=== PATIENT | male | born 1965 | race Caucasian/White ===

== ENCOUNTER 2020-01-01 09:10 | Outpatient (REF) | payer BC, SELFPAY ==
[2020-01-01 10:56] LABS: Estimated Average Glucose 134 mg/dL; Hemoglobin A1c % 6.3 %
[2020-01-01 11:11] LABS: Alanine Aminotransferase 20 U/L (0-40); Albumin Level 3.9 g/dL (3.5-5.0); Alkaline Phosphatase 124 U/L (39-117); Aspartate Amino Transferase 15 U/L (5-37); Bilirubin Direct 0.2 mg/dL (0.0-0.5); Bilirubin Total 0.3 mg/dL (0.0-1.0); Cholesterol 143 mg/dL; HDL Cholesterol 39 mg/dL; LDL Cholesterol Calculated 76 mg/dl; Total Protein 6.9 g/dL (6.5-8.0); Triglycerides 140 mg/dL
[2020-01-03 09:33] LABS: Vitamin B12 606 pg/mL (200-900)
== END 2020-01-01 09:11 | disposition home or self-care (01) ==
LOC: HO.LAB 09:10
PROVIDERS: PCP Internal Medicine; Visit Provider Internal Medicine
DX: E11.65 Type 2 diabetes mellitus with hyperglycemia (principal); E78.00 Pure hypercholesterolemia, unspecified; I10 Essential (primary) hypertension; E66.9 Obesity, unspecified
CPT/HCPCS: 36415; 80061; 80076; 82607; 82746; 83036

== ENCOUNTER 2020-06-24 08:18 | Outpatient (REF) | payer BC, SELFPAY ==
[2020-06-24 09:09] LABS: MANUAL DIFF FLAG NO
[2020-06-24 09:28] LABS: Basophils Absolute Auto 0.1 X10*3/uL (0.0-0.2); Basophils Percent Auto 0.8 % (0-2); Eosinophils Absolute Auto 0.3 X10*3/uL (0.0-0.4); Eosinophils Percent Auto 3.9 % (0-4); Hemoglobin 13.7 g/dl (14.0-18.0); Imm Gran Abs Auto 0.03 X10*3/uL (0.00-0.03); Imm Gran Pct Auto 0.4 % (0.0-0.4); Lymphocytes Absolute Auto 1.6 X10*3/uL (1.2-4.9); Lymphocytes Percent Auto 21.8 % (20-40); Mean Corpuscular HGB Conc 32.6 g/dl (31.0-36.0); Mean Corpuscular Hemoglobin 27.1 pg (27.0-33.0); Mean Corpuscular Volume 83.2 fL (80-98); Monocytes Absolute Auto 0.5 X10*3/uL (0.1-1.2); Neutrophils Percent Auto 67.1 % (45-73); Platelet Count 324 X10*3/uL (160-400); Red Blood Count 5.05 X10*6/uL (4.60-5.80); Red Cell Distribution Width 13.3 % (11.0-16.0); White Blood Count 7.5 X10*3/uL (4.8-10.8)
[2020-06-24 09:54] LABS: Alanine Aminotransferase 25 U/L (0-40); Albumin Level 3.8 g/dL (3.5-5.0); Alkaline Phosphatase 135 U/L (39-117); Anion Gap 13 (12-20); Aspartate Amino Transferase 14 U/L (5-37); Bilirubin Total 0.5 mg/dL (0.0-1.0); Blood Urea Nitrogen 20 mg/dL (9-16); Calcium 8.8 mg/dL (8.4-10.2); Carbon Dioxide 27 mmol/L (22-29); Chloride 104 mmol/L (96-108); Cholesterol 155 mg/dL; Estimated Average Glucose 140 mg/dL; Estimated Glomerular Filt Rate > 60; Glucose Random 122 mg/dL (60-115); HDL Cholesterol 39 mg/dL; Hemoglobin A1c % 6.5 %; LDL Cholesterol Calculated 96 mg/dl; Potassium 4.9 mmol/L (3.3-5.1); Sodium 139 mmol/L (135-145); Total Protein 6.7 g/dL (6.5-8.0); Triglycerides 104 mg/dL
[2020-06-24 10:15] LABS: Creatinine Urine 128.34 mg/dL; Microalbum/Creatinine Ratio Ur 991.1 ug/mg cr
[2020-06-24 10:44] LABS: Free T4 (Free Thyroxine) 0.82 ng/dL (0.71-1.85); Prostate Specific Antigen Scr 9.64 ng/mL (<0.05-4.0); Thyroid Stimulating Hormone 0.87 uIU/mL (0.32-4.0)
[2020-06-26 08:40] LABS: Folate 6.9 ng/mL (> or = 4.0); Vitamin B12 643 pg/mL (200-900)
== END 2020-06-24 08:19 | disposition home or self-care (01) ==
LOC: HO.LAB 08:18
PROVIDERS: PCP Internal Medicine; Visit Provider Internal Medicine
DX: R97.20 Elevated prostate specific antigen [PSA] (principal); E11.65 Type 2 diabetes mellitus with hyperglycemia; E78.00 Pure hypercholesterolemia, unspecified
CPT/HCPCS: 36415; 80053; 80061; 82043; 82607; 82746; 83036; 84153; 84439; 84443; 85025

== ENCOUNTER 2020-11-25 22:27 | Emergency (ER) | payer BC, SELFPAY ==
--- NOTE | ~2020-11-25 | CT_ITS ---
EXAMINATION: CT ABDOMEN AND PELVIS WITHOUT CONTRAST CLINICAL INFORMATION: Left flank pain COMPARISON: 09/23/2012 TECHNIQUE: Multidetector volumetric imaging was performed from the superior aspect of the liver through the pubic symphysis. Sagittal and coronal reformatted images were obtained on the technologist's workstation. This CT examination was performed using dose optimization techniques as appropriate, variously including the following: *Automated exposure control *Adjustment of mA and/or kV according to patient size (this includes techniques or standardized protocols for targeted exams where dose is matched to indication/reason for exam; i.e. extremities or head) *Use of iterative reconstruction technique DLP: 1038 mGy-cm FINDINGS: LUNG BASES: The visualized lung bases are unremarkable. LIVER, GALLBLADDER, AND BILIARY TREE: The liver is normal in size, shape, and attenuation. No focal hepatic lesion or biliary ductal dilatation is present. Cholelithiasis is noted. PANCREAS: Unremarkable. SPLEEN: Unremarkable. ADRENAL GLANDS: Unremarkable. KIDNEYS AND URETERS: There are several scattered bilateral renal calculi, greater number in the left kidney than the right; these measure up to approximately 8 mm in diameter. No hydronephrosis or obstructing calculus bilaterally. BLADDER: Unremarkable. GASTROINTESTINAL TRACT: There is subtle stranding anterior to the mid descending colon most suggestive of epiploic appendagitis. There is diverticulosis of the descending and sigmoid colon. No significant bowel wall thickening is seen. No evidence of bowel obstruction. The appendix is unremarkable. No free fluid or free air is seen. ABDOMINAL WALL: Bilateral fat-containing inguinal hernias are noted. LYMPH NODES: Normal. VASCULAR: There is minimal scattered atherosclerotic calcification. PELVIC VISCERA: The prostate gland is enlarged, measuring 7.8 cm in transverse diameter. OSSEOUS STRUCTURES: Scattered degenerative changes including endplate osteophytes and facet arthropathy, as well as degenerative disc disease at L5-S1. CT/CT abdomen pelvis wo con IMPRESSION: 1. Mild stranding anterior to the mid descending colon, most suggestive of epiploic appendagitis. 2. Colonic diverticulosis without convincing diverticulitis. 3. Bilateral renal calculi without hydronephrosis. 4. Cholelithiasis. 5. Enlarged prostate gland. 6. Bilateral fat-containing inguinal hernias.
[2020-11-25 22:54] VITALS: BP 145/72; PULSE 93; RESP 16; TEMP 37.1; O2SAT 96; BMI 40.3
[2020-11-25 23:31] LABS: MANUAL DIFF FLAG NO
[2020-11-25 23:32] LABS: Basophils Percent Auto 0.3 % (0-2); Eosinophils Absolute Auto 0.2 X10*3/uL (0.0-0.4); Eosinophils Percent Auto 2.7 % (0-4); Hemoglobin 13.2 g/dl (14.0-18.0); Imm Gran Abs Auto 0.02 X10*3/uL (0.00-0.03); Imm Gran Pct Auto 0.2 % (0.0-0.4); Lymphocytes Absolute Auto 1.7 X10*3/uL (1.2-4.9); Lymphocytes Percent Auto 18.3 % (20-40); Mean Corpuscular Hemoglobin 27.2 pg (27.0-33.0); Mean Corpuscular Volume 82.5 fL (80-98); Mean Platelet Volume 10.5 fL (9.4-12.4); Monocytes Absolute Auto 0.7 X10*3/uL (0.1-1.2); Monocytes Percent Auto 7.3 % (2-11); Neutrophils Absolute Auto 6.4 X10*3/uL (2.0-8.3); Neutrophils Percent Auto 71.2 % (45-73); Platelet Count 291 X10*3/uL (160-400); Red Blood Count 4.85 X10*6/uL (4.60-5.80); Red Cell Distribution Width 13.2 % (11.0-16.0)
[2020-11-25 23:52] LABS: Glucose Urine UA NEG (NEG); Leukocyte Esterase Urine NEG (NEG); Nitrite Urine NEG (NEG); PH 7.5 (5.0-8.0); UACC Culture Trigger NO; Urine Blood NEG (NEG); Urine Ketones NEG (NEG); Urine Protein 2+ MG/DL (NEG-TRACE)
[2020-11-25 23:53] LABS: Appearance Urine CLEAR; Color Urine YELLOW
[2020-11-25 23:55] LABS: Alanine Aminotransferase 21 U/L (0-40); Albumin Level 3.9 g/dL (3.5-5.0); Alkaline Phosphatase 119 U/L (39-117); Anion Gap 11 (12-20); Aspartate Amino Transferase 13 U/L (5-37); Bilirubin Total 0.3 mg/dL (0.0-1.0); Blood Urea Nitrogen 18 mg/dL (9-16); Calcium 9.2 mg/dL (8.4-10.2); Carbon Dioxide 27 mmol/L (22-29); Chloride 107 mmol/L (96-108); Creatinine Clr Calc Pharmacy 120.8; Estimated Glomerular Filt Rate > 60; Glucose Random 120 mg/dL (60-115); Potassium 3.9 mmol/L (3.3-5.1); Sodium 141 mmol/L (135-145); Total Protein 6.7 g/dL (6.5-8.0)
[2020-11-26 00:10] LABS: Mucus Urine 1+ /LPF; RBC Urine 0-2 /HPF (0); Squamous Epithelial Cell Urine TRACE /LPF
--- NOTE | 2020-11-26 00:32 | ED.ABDPAIN ---
HPI - Abdominal Pain General Chief Complaint: Abdominal Pain Stated Complaint: Abd Pain Time Seen by Provider: 11/26/20 00:32 Source: patient Mode of arrival: ambulatory History of Present Illness HPI narrative: 55-year-old male with history kidney stones presents with intermittent pain since Friday but this evening states that it started becoming much worse and is located as the left flank without associated nausea, vomiting, fevers, chills and patient denies any difficulty with urination. Related Data Home Medications Medication Instructions Recorded Confirmed cyanocobalamin (vitamin B-12) 1,000 mcg PO DAILY 03/30/20 06/27/20 1,000 mcg capsule Previous Rx's Medication Instructions Recorded atorvastatin 40 mg tablet 40 mg PO DAILY #90 tab 04/19/20 lisinopril 40 mg tablet 40 mg PO DAILY #90 tab 04/19/20 aspirin 81 mg tablet,delayed 81 mg PO DAILY 90 Days #90 tab 08/07/20 release (Adult Aspirin Regimen) amlodipine 2.5 mg tablet 2.5 mg PO DAILY #90 tab 11/13/20 Allergies Allergy/AdvReac Type Severity Reaction Status Date / Time codeine Allergy Unknown nausea and Verified 11/25/20 22:53 vomitting Review of Systems Review of Systems Pertinent positives and negatives as stated in HPI 10 point review of systems is otherwise negative. Physical Exam Vital Signs: Vital Signs: Last Vital Signs Temp 98.7 F 11/25/20 22:54 Pulse 93 11/25/20 22:54 Resp 16 11/25/20 22:54 BP 145/72 H 11/25/20 22:54 Pulse Ox 96 11/25/20 22:54 Body Mass Index 40.3 VITAL SIGNS: Reviewed. GENERAL: Well developed, well nourished, in no acute distress. HEAD: Normocephalic/atraumatic EYES: PERRLA, EOMI LUNGS: Normal breath sounds. No adventitious sounds or accessory muscle use. SpO2<96> CARDIOVASCULAR: Regular rate and rhythm without noted murmurs ABDOMEN: Obese, Soft, tenderness noted at left flank without rebound but voluntary guarding, non-distended with bowel sounds. SKIN: Inspection of the skin reveals no rashes NEUROLOGIC: Alert and oriented x 4. Strength and sensation to light touch were grossly intact x 4. Course Course Course Narrative: This is a 55-year-old male with history and clinical presentation most consistent with renal colic and low suspicion for diverticulitis. Patient was provided with combination analgesics for his discomfort. Review of all investigations with findings of epiploic appendagitis. Although patient does have bilateral renal calculi, there is no evidence of destruction. On re-evaluation patient was informed of all findings and reports improvement of the pain with the medication and will be discharged home in stable condition with recommended treatment for the epiploic appendagitis as well as instructions to follow-up with urology. MDM - Abdominal Pain Lab Data Result diagrams: 11/25/20 23:26 11/25/20 23:26 Labs: Lab Results 11/25/20 11/25/20 11/25/20 Range/Units 23:21 23:26 23:26 WBC 9.0 (4.8-10.8) X10*3/uL RBC 4.85 (4.60-5.80) X10*6/uL Hgb 13.2 L (14.0-18.0) g/dl Hct 40.0 L (42-52) % MCV 82.5 (80-98) fL MCH 27.2 (27.0-33.0) pg MCHC 33.0 (31.0-36.0) g/dl RDW 13.2 (11.0-16.0) % Plt Count 291 (160-400) X10*3/uL MPV 10.5 (9.4-12.4) fL Immature Gran % (Auto) 0.2 (0.0-0.4) % Neut % (Auto) 71.2 (45-73) % Lymph % (Auto) 18.3 L (20-40) % [place] % (Auto) 7.3 (2-11) % Eos % (Auto) 2.7 (0-4) % Baso % (Auto) 0.3 (0-2) % Lymph # (Auto) 1.7 (1.2-4.9) X10*3/uL [place] # (Auto) 0.7 (0.1-1.2) X10*3/uL Eos # (Auto) 0.2 (0.0-0.4) X10*3/uL Baso # (Auto) 0.0 (0.0-0.2) X10*3/uL Abs Immat Gran (auto) 0.02 (0.00-0.03) X10*3/uL Absolute Neuts (auto) 6.4 (2.0-8.3) X10*3/uL Absolute Nucleated RBC 0.000 (0.0-0.012) X10*3/uL Nucleated RBC % (auto) 0.0 (0.0-0.2) /100WBC Sodium 141 (135-145) mmol/L Potassium 3.9 D (3.3-5.1) mmol/L Chloride 107 (96-108) mmol/L Carbon Dioxide 27 (22-29) mmol/L Anion Gap 11 L (12-20) BUN 18 H (9-16) mg/dL Creatinine 0.85 (0.5-1.4) mg/dL Estim Creat Clear Calc 120.8 Estimated GFR > 60 Random Glucose 120 H (60-115) mg/dL Calcium 9.2 (8.4-10.2) mg/dL Total Bilirubin 0.3 (0.0-1.0) mg/dL AST 13 (5-37) U/L ALT 21 (0-40) U/L Alkaline Phosphatase 119 H (39-117) U/L Total Protein 6.7 (6.5-8.0) g/dL Albumin 3.9 (3.5-5.0) g/dL Urine Color YELLOW Urine Appearance CLEAR Urine pH 7.5 (5.0-8.0) Ur Specific [place] 1.020 (1.005-1.025) Urine Protein 2+ H (NEG-TRACE) MG/DL Urine Glucose (UA) NEG (NEG) MG/DL Urine Ketones NEG (NEG) MG/DL Urine Blood NEG (NEG) Urine Nitrite NEG (NEG) Ur Leukocyte Esterase NEG (NEG) Urine RBC 0-2 (0) /HPF Urine WBC 1-4 (0-4) /HPF Ur Squamous Epith Cells TRACE /LPF Urine Bacteria NONE /LPF Urine Mucus 1+ /LPF Discharge Plan Discharge Clinical Impression: Epiploic appendagitis, Renal calculi Patient Disposition: Home, Self-Care Instructions: Flank Pain (ED), Kidney Stones (ED) Additional Instructions: 1. Resume all home medications as prescribed. 2. Tylenol 1000 mg, orally, every 6 hours as needed for pain control. Do not exceed 4000 mg within 24 hours. 3. Ibuprofen 400 mg, orally, every 6 hours as needed for pain control. Recommend using this in combination with the Tylenol for improved symptom relief. Do not use the ibuprofen for longer than 1 week. 4. Follow-up with your primary care provider for re-evaluation after your diagnosis of epiploic appendagitis. 5. Follow-up with urology for re-evaluation of your kidney stones. Drink plenty of water and avoid carbonated/caffeinated beverages. Return to the ER for acute worsening of symptoms. Prescriptions: No Action atorvastatin 40 mg tablet 40 mg PO DAILY Qty: 90 RF: 2 lisinopril 40 mg tablet 40 mg PO DAILY Qty: 90 RF: 2 aspirin [Adult Aspirin Regimen] 81 mg tablet,delayed release (DR/EC) 81 mg PO DAILY 90 Days Qty: 90 RF: 2 amlodipine 2.5 mg tablet 2.5 mg PO DAILY Qty: 90 RF: 3 cyanocobalamin (vitamin B-12) 1,000 mcg capsule 1,000 mcg PO DAILY RF: 0 Referrals: Flavio Massey MD [Primary Care Provider] - 2 days (Patient diagnosed with epiploic appendagitis and sent home with combination analgesics. Appreciate re-evaluation.) Dillon Rae MD [Physician] - 2 days PMF Past Medical History Source: nursing notes reviewed Medical History BPH (benign prostatic hyperplasia) Chronic kidney disease (CKD) stage G1/A1, glomerular filtration rate (GFR) equal to or greater than 90 mL/min/1.73 square meter and albuminuria creatinine ratio less than 30 mg/g Closed fracture of right distal fibula Diabetic nephropathy GERD (gastroesophageal reflux disease) Gout History of renal calculi Hypercholesterolemia Hypertension Obesity (BMI 30-39.9) Type 2 diabetes mellitus with hyperglycemia Vitamin D deficiency Surgical History No pertinent past surgical history Family History Family History Father Bladder cancer Mother Breast cancer Maternal Uncle Myocardial infarction Brother Alzheimers disease Social History [facility] Alcohol intake: current Alcohol intake frequency: holidays/special occasions only Patient Tobacco Use Status: Never used Tobacco e-Cigarette/Vaping Use: Never Used Second Hand Smoke Exposure: No Advance Directives: No Advance Directives Information Provided: Yes service: No Current occupational status: employed Current occupational exposures/hazards: No
[2020-11-26] MEDS: Ketorolac Tromethamine 15 MG/ML VIAL IVPUSH (00:50)
[2020-11-26] MEDS: Acetaminophen 325 MG TABLET 975 MG PO (00:50)
[2020-11-26] MEDS: 0.9 % Sodium Chloride 1,000 ML 999 ML IV (00:51)
== END 2020-11-26 01:47 | disposition home or self-care (01) ==
PROVIDERS: Emergency Provider Student in an Organized Health Care Education/Training Program; PCP Internal Medicine
DX: K63.89 Other specified diseases of intestine (principal); N20.0 Calculus of kidney; K80.20 Calculus of gallbladder without cholecystitis without obstruction; K40.90 Unilateral inguinal hernia, without obstruction or gangrene, not specified as recurrent; N40.0 Benign prostatic hyperplasia without lower urinary tract symptoms; R10.9 Unspecified abdominal pain; E11.9 Type 2 diabetes mellitus without complications; I10 Essential (primary) hypertension; Z79.899 Other long term (current) drug therapy
CPT/HCPCS: 36415; 74176; 80053; 81001; 85025; 96361; 96374; 99284; J1885

== ENCOUNTER 2020-12-21 07:07 | Outpatient (REF) | payer BC, SELFPAY | END 2020-12-21 07:08 | disposition home or self-care (01) | LOC: HO.HMGCLDS 07:07 | PROVIDERS: PCP Internal Medicine; Visit Provider Internal Medicine | DX: Z20.822 Contact with and (suspected) exposure to COVID-19 (principal) | CPT/HCPCS: C9803; U0003; U0005 ==

== ENCOUNTER 2021-05-10 10:30 | Outpatient (REF) | payer BC, SELFPAY ==
[2021-05-10 10:47] LABS: MANUAL DIFF FLAG NO
[2021-05-10 11:06] LABS: Basophils Percent Auto 0.5 % (0-2); Eosinophils Absolute Auto 0.2 X10*3/uL (0.0-0.4); Eosinophils Percent Auto 1.9 % (0-4); Hematocrit 42.9 % (42.0-52.0); Imm Gran Abs Auto 0.03 X10*3/uL (0.00-0.03); Imm Gran Pct Auto 0.4 % (0.0-0.4); Lymphocytes Absolute Auto 1.6 X10*3/uL (1.2-4.9); Lymphocytes Percent Auto 19.2 % (20-40); Mean Corpuscular HGB Conc 32.6 g/dl (31.0-36.0); Mean Corpuscular Hemoglobin 26.6 pg (27.0-33.0); Mean Corpuscular Volume 81.6 fL (80.0-98.0); Mean Platelet Volume 10.6 fL (9.4-12.4); Monocytes Absolute Auto 0.5 X10*3/uL (0.1-1.2); Monocytes Percent Auto 5.9 % (2-11); Neutrophils Absolute Auto 5.8 x10*3/uL (2.0-8.3); Neutrophils Percent Auto 72.1 % (45-73); Platelet Count 318 X10*3/uL (160-400); Red Blood Count 5.26 X10*6/uL (4.60-5.80); Red Cell Distribution Width 13.6 % (11.0-16.0); White Blood Count 8.1 X10*3/uL (4.8-10.8)
[2021-05-10 11:21] LABS: Estimated Average Glucose 151 mg/dL; Hemoglobin A1c % 6.9 %
[2021-05-10 11:31] LABS: Alanine Aminotransferase 24 U/L (0-40); Alkaline Phosphatase 116 U/L (39-117); Anion Gap 13 (12-20); Aspartate Amino Transferase 14 U/L (5-37); Bilirubin Total 0.3 mg/dL (0.0-1.0); Blood Urea Nitrogen 17 mg/dL (9-16); Calcium 9.8 mg/dL (8.4-10.2); Carbon Dioxide 27 mmol/L (22-29); Chloride 102 mmol/L (96-108); Estimated Glomerular Filt Rate > 60; Glucose Random 102 mg/dL (60-115); Magnesium 1.9 mg/dL (1.6-2.6); Potassium 4.5 mmol/L (3.3-5.1); Sodium 137 mmol/L (135-145); Total Protein 7.4 g/dL (6.5-8.0)
== END 2021-05-10 10:31 | disposition home or self-care (01) ==
LOC: HO.LAB 10:30
PROVIDERS: PCP Internal Medicine; Visit Provider Nurse Practitioner Acute Care
DX: M79.10 Myalgia, unspecified site (principal)
CPT/HCPCS: 36415; 80053; 83036; 83735; 85025

== ENCOUNTER 2021-07-04 18:49 | Emergency (ER) | payer BC, SELFPAY ==
--- NOTE | ~2021-07-04 | CT_ITS ---
EXAMINATION: CT ABDOMEN AND PELVIS WITHOUT CONTRAST CLINICAL INFORMATION: Right flank pain COMPARISON: 11/26/2020 TECHNIQUE: Multidetector volumetric imaging was performed from the superior aspect of the liver through the pubic symphysis. Sagittal and coronal reformatted images were obtained on the technologist's workstation. This CT examination was performed using dose optimization techniques as appropriate, variously including the following: *Automated exposure control *Adjustment of mA and/or kV according to patient size (this includes techniques or standardized protocols for targeted exams where dose is matched to indication/reason for exam; i.e. extremities or head) *Use of iterative reconstruction technique DLP: 877 mGy-cm FINDINGS: LUNG BASES: The visualized lung bases are unremarkable. LIVER, GALLBLADDER, AND BILIARY TREE: The liver is normal in size, shape, and attenuation. No focal hepatic lesion or biliary ductal dilatation is present. Gallstones. No gallbladder wall thickening or biliary ductal dilatation. PANCREAS: Unremarkable. SPLEEN: Unremarkable. ADRENAL GLANDS: 1.2 x 1.7 cm left adrenal nodule has density -3 Hounsfield units consistent with a lipid rich adrenal adenoma. Normal right adrenal gland. KIDNEYS AND URETERS: Multiple bilateral nonobstructing renal calculi. The largest on the left measures 1 cm in the upper pole. 6 mm calculus in the right mid kidney. No hydronephrosis or hydroureter. BLADDER: Unremarkable. GASTROINTESTINAL TRACT: Stomach and small bowel are nondilated normal appendix. Scattered colonic diverticulosis. No evidence of colitis or diverticulitis. ABDOMINAL WALL: Fat-containing bilateral inguinal hernias. LYMPH NODES: No lymphadenopathy. VASCULAR: Normal caliber abdominal aorta. PELVIC VISCERA: Prostatomegaly, 6.7 x 7.5 cm. Symmetric seminal vesicles. OSSEOUS STRUCTURES: Multilevel degenerative changes, greatest at L5-S1. No acute or suspicious osseous abnormality. CT/CT abdomen pelvis wo con IMPRESSION: No acute CT findings. No evidence of colitis or diverticulitis. Nonobstructing bilateral renal calculi.
[2021-07-04 18:51] VITALS: BP 161/80; PULSE 102; RESP 18; TEMP 35.9; O2SAT 97; BMI 40.6
[2021-07-04 19:05] LABS: MANUAL DIFF FLAG NO
[2021-07-04 19:07] LABS: Basophils Percent Auto 0.5 % (0-2); Eosinophils Absolute Auto 0.2 X10*3/uL (0.0-0.4); Hematocrit 41.7 % (42.0-52.0); Hemoglobin 13.6 g/dl (14.0-18.0); Imm Gran Abs Auto 0.02 X10*3/uL (0.00-0.03); Imm Gran Pct Auto 0.2 % (0.0-0.4); Lymphocytes Absolute Auto 1.9 X10*3/uL (1.2-4.9); Lymphocytes Percent Auto 22.8 % (20-40); Mean Corpuscular HGB Conc 32.6 g/dl (31.0-36.0); Mean Corpuscular Hemoglobin 26.9 pg (27.0-33.0); Mean Corpuscular Volume 82.6 fL (80.0-98.0); Mean Platelet Volume 10.4 fL (9.4-12.4); Monocytes Absolute Auto 0.5 X10*3/uL (0.1-1.2); Monocytes Percent Auto 5.9 % (2-11); Neutrophils Absolute Auto 5.7 x10*3/uL (2.0-8.3); Neutrophils Percent Auto 68.6 % (45-73); Platelet Count 332 X10*3/uL (160-400); Red Blood Count 5.05 X10*6/uL (4.60-5.80); Red Cell Distribution Width 13.5 % (11.0-16.0); White Blood Count 8.4 X10*3/uL (4.8-10.8)
[2021-07-04 19:31] LABS: Alanine Aminotransferase 24 U/L (0-40); Albumin Level 4.1 g/dL (3.5-5.0); Alkaline Phosphatase 126 U/L (39-117); Anion Gap 12 (12-20); Aspartate Amino Transferase 14 U/L (5-37); Bilirubin Total 0.4 mg/dL (0.0-1.0); Blood Urea Nitrogen 16 mg/dL (9-16); Calcium 9.9 mg/dL (8.4-10.2); Carbon Dioxide 26 mmol/L (22-29); Chloride 104 mmol/L (96-108); Creatinine Clr Calc Pharmacy 127.3; Estimated Glomerular Filt Rate > 60; Glucose Random 154 mg/dL (60-115); Potassium 4.1 mmol/L (3.3-5.1); Sodium 138 mmol/L (135-145); Total Protein 7.3 g/dL (6.5-8.0)
--- NOTE | 2021-07-04 22:03 | ED.ABDPAIN ---
HPI - Abdominal Pain General Chief Complaint: Abdominal Pain Stated Complaint: kidney stones Time Seen by Provider: 07/04/21 22:03 Source: patient Mode of arrival: ambulatory Limitations: no limitations History of Present Illness HPI narrative: This is a 55-year-old male past medical history significant for renal stones presenting to the emergency department with severe right-sided flank pain worsening over the past 3 days. Patient tells me that he is scheduled for lithotripsy on July 16 of this year for a large kidney stones however he tells me he has never experienced pain this severe. He describes the pain as stabbing intermittent pain 10/10 nonradiating localized to the right flank. He tells me he does not have associated nausea, vomiting, chest pain, fevers, chills, abdominal pain, changes in urination. He is followed by [facility]. MD elicited complaint: flank pain Pertinent past history: kidney stones Onset (ago): day(s) (3) Pain Consistency: intermittent Location: none Severity: moderate Quality: stabbing Radiation: none Migration to: no migration Exacerbating factors: nothing Relieving factors: nothing Associated symptoms: denies other symptoms and chills Related Data Previous Rx's Medication Instructions Recorded atorvastatin 40 mg tablet 40 mg PO DAILY #90 tab 03/26/21 cyanocobalamin (vitamin B-12) 1,000 mcg PO DAILY #90 cap 03/26/21 1,000 mcg capsule lisinopril 40 mg tablet 40 mg PO DAILY #90 tab 03/30/21 magnesium oxide 400 mg PO DAILY #30 tab 05/10/21 aspirin 81 mg tablet,delayed 81 mg PO DAILY 90 Days #90 tab 05/25/21 release (Adult Aspirin Regimen) amlodipine 10 mg tablet 10 mg PO DAILY 30 Days #30 tab 06/01/21 Allergies Allergy/AdvReac Type Severity Reaction Status Date / Time codeine Allergy Unknown nausea and Verified 07/04/21 18:53 vomitting Review of Systems Review of Systems Constitutional : No Weight loss, No Fever, No Chills, No Fatigue, No Malaise ENT/Mouth : No sore throat, No Rhinorrhea Eyes: No Eye Pain, No Swelling, No Redness Cardiovascular : No Chest Pain, No SOB, No Dyspnea on Exertion, No Orthopnea, No Edema, No Palpitations Respiratory : No Cough, No Sputum, No Wheezing Gastrointestinal : No Nausea, No Vomiting, No Diarrhea, No Constipation, No abdominal Pain, No Hematochezia, No Melena Genitourinary : No Dysuria, No Urinary Frequency, No Hematuria, Musculoskeletal : No joint pain, No Myalgias, No Joint Swelling, + flank pain Skin : No Skin Lesions, No rash Neuro : No Weakness, No Numbness, No Dizziness, No Headache Psych : No Anxiety/Panic, No Depression All other systems reviewed and are negative [facility] Past Medical History Attestation statement: The following information was validated with the patient. Source: old records reviewed Medical History BPH (benign prostatic hyperplasia) Chronic kidney disease (CKD) stage G1/A1, glomerular filtration rate (GFR) equal to or greater than 90 mL/min/1.73 square meter and albuminuria creatinine ratio less than 30 mg/g Closed fracture of right distal fibula Diabetic nephropathy GERD (gastroesophageal reflux disease) Gout History of renal calculi Hypercholesterolemia Hypertension Obesity (BMI 30-39.9) Type 2 diabetes mellitus with hyperglycemia Vitamin D deficiency Surgical History No pertinent past surgical history Family History Family History Father Bladder cancer Mother Breast cancer Maternal Uncle Myocardial infarction Brother Alzheimers disease Social History [facility] Alcohol intake: current Alcohol intake frequency: holidays/special occasions only Patient Tobacco Use Status: Never used Tobacco e-Cigarette/Vaping Use: Never Used Second Hand Smoke Exposure: No Use of substances other than those prescribed or required for medical reasons: No Advance Directives: No Advance Directives Information Provided: No service: No Current occupational status: employed Current occupational exposures/hazards: No Physical Exam ED Vital Signs: Vital Signs - 24 hr 07/04/21 18:51 07/04/21 22:19 07/04/21 23:02 Temperature 96.7 F L 98.8 F Pulse Rate 102 H 85 Respiratory Rate 18 16 20 Blood Pressure 161/80 H 162/80 H Pulse Oximetry 97 97 07/05/21 00:05 Temperature Pulse Rate 75 Respiratory Rate 16 Blood Pressure 137/71 Pulse Oximetry 96 BMI result Body Mass Index 40.6 VSS Appearance: Alert.? Oriented X3.? No acute distress.? Head: Normocephalic, atraumatic, no step-offs or deformities Eyes: Pupils equal, round and reactive to light.? ENT: Pharynx normal.? Neck: Normal inspection.? Neck supple.? CVS: Normal heart rate and rhythm.? Pulses normal.? Respiratory: No respiratory distress.? Breath sounds normal.? Abdomen: Soft and nontender.? Skin: Skin warm and dry.? Normal skin color.? Normal skin turgor.? Extremities: No lower extremity edema.? No calf ttp. 5/5 strength to bilateral upper and lower extremities Back: No midline tenderness, no C-spine tenderness, full range of motion, no CVA tenderness bilaterally Neuro: Oriented X 3.? No motor deficit.? No sensory deficit. CN 2-12 intact Course Reevaluation(s) Reevaluation #1: CBC appears to be at patient's baseline. No acute electrolyte abnormalities. Magnesium normal. Urine clean, 2+ protein. No red blood cells. COVID negative. CT of the abdomen and pelvis with no acute CT findings. No evidence of colitis or diverticulitis. There are bilateral non obstructing renal calculi. History and physical examination not consistent with UTI or pyelonephritis. Patient tells me there is significant improvement after morphine. He tells me that he has scheduled lithotripsy out of [facility] on the 18th of this month. I advised patient to follow-up with his urologist return with new or worsening symptoms. Time: 00:08 MDM - Abdominal Pain MDM Narrative Medical decision making narrative: 2215 55 yo m pmhx renal stones presenting w/ severe right sided flank pain X3 days PE benign Plan- urine, labs, ct abdomen and pelvis. Medical Records Attestation: I reviewed the patient's medical records. Lab Data Attestation: I reviewed the patient's lab results. Result diagrams: 07/04/21 18:57 07/04/21 18:57 Labs: Lab Results 07/04/21 07/04/21 07/04/21 Range/Units 18:57 18:57 22:16 WBC 8.4 (4.8-10.8) X10*3/uL RBC 5.05 (4.60-5.80) X10*6/uL Hgb 13.6 L (14.0-18.0) g/dl Hct 41.7 L (42.0-52.0) % MCV 82.6 (80.0-98.0) fL MCH 26.9 L (27.0-33.0) pg MCHC 32.6 (31.0-36.0) g/dl RDW 13.5 (11.0-16.0) % Plt Count 332 (160-400) X10*3/uL MPV 10.4 (9.4-12.4) fL Immature Gran % (Auto) 0.2 (0.0-0.4) % Neut % (Auto) 68.6 (45-73) % Lymph % (Auto) 22.8 (20-40) % [place] % (Auto) 5.9 (2-11) % Eos % (Auto) 2.0 (0-4) % Baso % (Auto) 0.5 (0-2) % Lymph # (Auto) 1.9 (1.2-4.9) X10*3/uL [place] # (Auto) 0.5 (0.1-1.2) X10*3/uL Eos # (Auto) 0.2 (0.0-0.4) X10*3/uL Baso # (Auto) 0.0 (0.0-0.2) X10*3/uL Abs Immat Gran (auto) 0.02 (0.00-0.03) X10*3/uL Absolute Neuts (auto) 5.7 (2.0-8.3) x10*3/uL Absolute Nucleated RBC 0.000 (0.0-0.012) X10*3/uL Nucleated RBC % (auto) 0.0 (0.0-0.2) /100WBC Sodium 138 (135-145) mmol/L Potassium 4.1 (3.3-5.1) mmol/L Chloride 104 (96-108) mmol/L Carbon Dioxide 26 (22-29) mmol/L Anion Gap 12 (12-20) BUN 16 (9-16) mg/dL Creatinine 0.81 (0.5-1.4) mg/dL Estim Creat Clear Calc 127.3 Estimated GFR > 60 Random Glucose 154 H D (60-115) mg/dL Calcium 9.9 (8.4-10.2) mg/dL Magnesium (1.6-2.6) mg/dL Total Bilirubin 0.4 (0.0-1.0) mg/dL AST 14 (5-37) U/L ALT 24 (0-40) U/L Alkaline Phosphatase 126 H (39-117) U/L Total Protein 7.3 (6.5-8.0) g/dL Albumin 4.1 (3.5-5.0) g/dL Urine Color YELLOW Urine Appearance CLEAR Urine pH 6.5 (5.0-8.0) Ur Specific [place] 1.025 (1.005-1.025) Urine Protein 2+ H (NEG-TRACE) MG/DL Urine Glucose (UA) NEG (NEG) MG/DL Urine Ketones NEG (NEG) MG/DL Urine Blood NEG (NEG) Urine Nitrite NEG (NEG) Ur Leukocyte Esterase NEG (NEG) Urine RBC 0-2 (0) /HPF Urine WBC 0-2 (0-4) /HPF Ur Squamous Epith Cells TRACE /LPF Urine Bacteria NONE /LPF COVID-19 (FIDEL) (Negative) COVID-19 Clin Com 07/04/21 07/04/21 Range/Units 22:17 22:21 WBC (4.8-10.8) X10*3/uL RBC (4.60-5.80) X10*6/uL Hgb (14.0-18.0) g/dl Hct (42.0-52.0) % MCV (80.0-98.0) fL MCH (27.0-33.0) pg MCHC (31.0-36.0) g/dl RDW (11.0-16.0) % Plt Count (160-400) X10*3/uL MPV (9.4-12.4) fL Immature Gran % (Auto) (0.0-0.4) % Neut % (Auto) (45-73) % Lymph % (Auto) (20-40) % [place] % (Auto) (2-11) % Eos % (Auto) (0-4) % Baso % (Auto) (0-2) % Lymph # (Auto) (1.2-4.9) X10*3/uL [place] # (Auto) (0.1-1.2) X10*3/uL Eos # (Auto) (0.0-0.4) X10*3/uL Baso # (Auto) (0.0-0.2) X10*3/uL Abs Immat Gran (auto) (0.00-0.03) X10*3/uL Absolute Neuts (auto) (2.0-8.3) x10*3/uL Absolute Nucleated RBC (0.0-0.012) X10*3/uL Nucleated RBC % (auto) (0.0-0.2) /100WBC Sodium (135-145) mmol/L Potassium (3.3-5.1) mmol/L Chloride (96-108) mmol/L Carbon Dioxide (22-29) mmol/L Anion Gap (12-20) BUN (9-16) mg/dL Creatinine (0.5-1.4) mg/dL Estim Creat Clear Calc Estimated GFR Random Glucose (60-115) mg/dL Calcium (8.4-10.2) mg/dL Magnesium 2.1 (1.6-2.6) mg/dL Total Bilirubin (0.0-1.0) mg/dL AST (5-37) U/L ALT (0-40) U/L Alkaline Phosphatase (39-117) U/L Total Protein (6.5-8.0) g/dL Albumin (3.5-5.0) g/dL Urine Color Urine Appearance Urine pH (5.0-8.0) Ur Specific [place] (1.005-1.025) Urine Protein (NEG-TRACE) MG/DL Urine Glucose (UA) (NEG) MG/DL Urine Ketones (NEG) MG/DL Urine Blood (NEG) Urine Nitrite (NEG) Ur Leukocyte Esterase (NEG) Urine RBC (0) /HPF Urine WBC (0-4) /HPF Ur Squamous Epith Cells /LPF Urine Bacteria /LPF COVID-19 (FIDEL) Negative (Negative) COVID-19 Clin Com See Note Critical Care Time Critical Care Time Critical Care Time: No Discharge Plan Discharge Clinical Impression: Kidney calculi Patient Disposition: Home, Self-Care Instructions: Kidney Stones (ED) Additional Instructions: Take your medications as prescribed. If you were prescribed antibiotics today, it is important that you take your medication to their entirety, do not skip any doses, do not finish them early. Follow-up with your primary care provider this week. Call Urology tomorrow and try to see them as soon as possible preferably within the next day or 2. You can take ibuprofen every 6 hours, Tylenol every 4 as needed for pain or discomfort. Return to the emergency department with new or worsening symptoms. Such as fevers, chills, chest pain, shortness of breath, nausea, vomiting, dizziness, headache, vision changes, lethargy In case of emergency call 911 FINDINGS: LUNG BASES: The visualized lung bases are unremarkable.? LIVER, GALLBLADDER, AND BILIARY TREE: The liver is normal in size, shape, and attenuation. No focal hepatic lesion or biliary ductal dilatation is present. Gallstones. No gallbladder wall thickening or biliary ductal dilatation.? PANCREAS: Unremarkable.? SPLEEN: Unremarkable.? ADRENAL GLANDS: 1.2 x 1.7 cm left adrenal nodule has density -3 Hounsfield units consistent with a lipid rich adrenal adenoma. Normal right adrenal gland.? KIDNEYS AND URETERS: Multiple bilateral nonobstructing renal calculi. The largest on the left measures 1 cm in the upper pole. 6 mm calculus in the right mid kidney. No hydronephrosis or hydroureter. BLADDER: Unremarkable.? GASTROINTESTINAL TRACT: Stomach and small bowel are nondilated normal appendix. Scattered colonic diverticulosis. No evidence of colitis or diverticulitis.? ABDOMINAL WALL: Fat-containing bilateral inguinal hernias.? LYMPH NODES: No lymphadenopathy. VASCULAR: Normal caliber abdominal aorta. PELVIC VISCERA: Prostatomegaly, 6.7 x 7.5 cm. Symmetric seminal vesicles.? OSSEOUS STRUCTURES: Multilevel degenerative changes, greatest at L5-S1. No acute or suspicious osseous abnormality.? CT/CT abdomen pelvis wo con IMPRESSION: No acute CT findings. No evidence of colitis or diverticulitis. Nonobstructing bilateral renal calculi. Prescriptions: No Action cyanocobalamin (vitamin B-12) 1,000 mcg capsule 1,000 mcg PO DAILY Qty: 90 1RF atorvastatin 40 mg tablet 40 mg PO DAILY Qty: 90 2RF lisinopril 40 mg tablet 40 mg PO DAILY Qty: 90 2RF magnesium oxide 400 mg magnesium tablet 400 mg PO DAILY Qty: 30 0RF aspirin [Adult Aspirin Regimen] 81 mg tablet,delayed release (DR/EC) 81 mg PO DAILY 90 Days Qty: 90 2RF amlodipine 10 mg tablet 10 mg PO DAILY 30 Days Qty: 30 3RF Referrals: Dillon Rae MD [Physician] - 1 day Po,Nicki Hill MD [Primary Care Provider] - Stand Alone Forms: Work/School Release Interventions: ED Discharge Assessment Last Done: 07/05/21 00:28 Discharge Date/Time: 07/05/21 01:10
[2021-07-04 22:19] VITALS: BP 162/80; PULSE 85; RESP 16; TEMP 37.1; O2SAT 97
[2021-07-04 22:24] LABS: Appearance Urine CLEAR; Color Urine YELLOW; Glucose Urine UA NEG (NEG); Leukocyte Esterase Urine NEG (NEG); Nitrite Urine NEG (NEG); PH 6.5 (5.0-8.0); Specific Gravity - Urine 1.025 (1.005-1.025); UACC Culture Trigger NO; Urine Blood NEG (NEG); Urine Ketones NEG (NEG); Urine Protein 2+ MG/DL (NEG-TRACE)
[2021-07-04 22:38] LABS: RBC Urine 0-2 /HPF (0); Squamous Epithelial Cell Urine TRACE /LPF; WBC Urine 0-2 /HPF (0-4)
[2021-07-04 22:41] LABS: COVID-19 Test Negative (Negative)
[2021-07-04 22:44] LABS: Magnesium 2.1 mg/dL (1.6-2.6)
[2021-07-04 23:02] VITALS: RESP 20
[2021-07-04] MEDS: Morphine Sulfate 4 MG/ML CARTRIDGE IVPUSH (23:02)
[2021-07-04] MEDS: predniSONE 20 MG TABLET PO (23:02)
[2021-07-04] MEDS: Tamsulosin HCL 0.4 MG CAPSULE PO (23:02)
[2021-07-04] MEDS: ondansetron HCL 4 MG/2 ML VIAL IVPUSH (23:02)
[2021-07-05 00:05] VITALS: BP 137/71; PULSE 75; RESP 16; O2SAT 96
== END 2021-07-05 01:10 | disposition home or self-care (01) ==
PROVIDERS: Physician Assistant; Emergency Provider Emergency Medicine; PCP Internal Medicine
DX: N20.0 Calculus of kidney (principal); Z20.822 Contact with and (suspected) exposure to COVID-19; Z79.899 Other long term (current) drug therapy
CPT/HCPCS: 36415; 74176; 80053; 81001; 83735; 85025; 87635; 96374; 96375; 99285; J2270; J2405

== ENCOUNTER 2021-12-14 14:59 | Outpatient (REF) | payer SELFPAY ==
--- NOTE | 2021-12-17 09:07 | MHC.AU.HFU ---
Hearing Instrument Follow-Up- Binaural Date of Visit: 12/14/21 Right Ear: General Technician: Phonak Model: Bolero Q30-SP Serial Number: [id number] Dispensed By: [employer] Left Ear: General Technician: Phonak Model: Bolero Q30-SP Serial Number: [id number] Dispensed By: [facility] Hearing Follow-Up Summary: Patient is transferring to our clinic. He is primarily interested in a new set of molds. His current ones are hard acrylic skeleton-style. One of the skeleton locks is broken. He would also like to go with a soft material. Hearing aids were inspected and cleaned. Molds were cleaned and re-tubed. [place] were replaced. Debris was removed from microphones and battery compartments. Hearing aids are amplifying clearly. The programming was uploaded into [employer]. No programming changes made today. Impressions were taken bilaterally without incident and will be sent to [employer]. Recommendations: Patient will be contacted when materials have arrived. Paid transfer of care fee. Discussed $170 for molds. Diagnosis Code(s): Primary Diagnosis: H90.3 Bilateral Sensorineural Hearing Loss Signature: Provider: Chavo Moreno, [facility]
== END 2021-12-14 15:00 | disposition home or self-care (01) ==
LOC: HO.HAP 14:59
PROVIDERS: Visit Provider Internal Medicine
DX: Z46.1 Encounter for fitting and adjustment of hearing aid (principal); H90.3 Sensorineural hearing loss, bilateral
CPT/HCPCS: V5011

== ENCOUNTER 2022-01-14 12:24 | Outpatient (REF) | payer SELFPAY | END 2022-01-14 12:25 | disposition home or self-care (01) | LOC: HO.HAP 12:24 | PROVIDERS: Visit Provider Internal Medicine | DX: Z46.1 Encounter for fitting and adjustment of hearing aid (principal); H90.3 Sensorineural hearing loss, bilateral | CPT/HCPCS: 92700; V5264 ==

== ENCOUNTER 2022-01-26 08:33 | Emergency (ER) | payer OTHER, SELFPAY ==
--- NOTE | ~2022-01-26 | CT_ITS ---
EXAMINATION: CT ABDOMEN AND PELVIS WITHOUT CONTRAST CLINICAL INFORMATION: Pain of left flank. COMPARISON: 07/04/2021 TECHNIQUE: Multidetector volumetric imaging was performed from the superior aspect of the liver through the pubic symphysis. Sagittal and coronal reformatted images were obtained on the technologist's workstation. This CT examination was performed using dose optimization techniques as appropriate, variously including the following: *Automated exposure control *Adjustment of mA and/or kV according to patient size (this includes techniques or standardized protocols for targeted exams where dose is matched to indication/reason for exam; i.e. extremities or head) *Use of iterative reconstruction technique DLP: 901 mGy-cm FINDINGS: LOCALIZER IMAGES: Large body habitus. Normal bowel gas pattern. LUNG BASES: There is calcification of the visualized right coronary artery. No pulmonary consolidation or pleural effusion. LIVER: Mild hepatomegaly. No focal hepatic lesion. GALLBLADDER AND BILIARY TREE: Gallbladder has multiple calcified stones. No gallbladder wall thickening or pericholecystic fluid. No dilated bile ducts. PANCREAS: Normal. No edema, pancreatic ductal dilatation or mass. SPLEEN: 13.2 cm maximum dimension. No focal splenic lesion. ADRENAL GLANDS: Again noted is the small, lipid rich adenoma the apex of the left adrenal gland. No adrenal imaging follow-up recommended. No new adrenal abnormality. KIDNEYS AND URETERS: No new findings in either kidney compared to 07/04/2021. Old small focus of cortical calcification (and overlying cortical thinning) of the anterolateral interpolar region of the right kidney. 0.5 cm calyceal stone of the posterior interpolar region of the right kidney has a density of at least 900 Hounsfield units and is located 13 cm deep from the skin surface at the posterior axillary line. The right ureter is unremarkable. The cluster of calcification of the posterior upper pole of the left kidney occupies an area measuring up to 1.1 cm AP, density of approximately 850 Hounsfield units, 8.4 cm deep from the skin surface at the posterior axillary line. The nearby 0.4 cm calyceal stone is too small for acquisition of a reliable density measurement. There appears to be a cluster of stones in the lower pole of the left kidney. The left ureter is unremarkable. There is no evidence of ureterolithiasis or hydroureteronephrosis. BLADDER: Underdistended. No bladder calculi. BOWEL AND PERITONEUM: Stomach is unremarkable. No dilated bowel loops. The appendix is normal. Diverticula of the descending and sigmoid colon without evidence of diverticulitis. No abdominal free fluid or free air. ABDOMINAL WALL: Again noted are the fat-containing inguinal hernias. VASCULATURE: Mild atherosclerosis of the aorta without aneurysm. LYMPH NODES: No pathologic sized lymph nodes in the abdomen or pelvis. No inguinal lymphadenopathy. PELVIC VISCERA: Chronically enlarged prostate gland measures 5.5 cm transverse, 4.3 cm AP. SKELETAL: No suspicious bone lesions. Findings include facet osteoarthritis of L4-5 with grade 1 anterolisthesis of L4 on L5. Mild osteoarthritis of the hips. CT/CT abdomen pelvis wo IV con IMPRESSION: * Large body habitus and mild hepatosplenomegaly. * Cholelithiasis without evidence of acute cholecystitis. * Again noted are bilateral renal stones without ureteral calculi, hydroureteronephrosis or perinephric edema. * Chronically enlarged prostate gland.
[2022-01-26 08:45] VITALS: BP 147/78; PULSE 91; RESP 18; TEMP 36.8; O2SAT 99; BMI 36.7
[2022-01-26 09:10] VITALS: BP 139/73; PULSE 88; RESP 12; O2SAT 95
--- NOTE | 2022-01-26 09:27 | ED.MALEGU ---
HPI - Male Genitourinary General Chief complaint: Urogenital-Male Stated complaint: KIDNEY STONE Time Seen by Provider: 01/26/22 08:58 Source: patient Mode of arrival: ambulatory Limitations: no limitations History of Present Illness HPI Narrative: Patient is a 56-year-old male who presents to the emergency department for evaluation of left flank pain that has become increasingly worse over the past week. Reports it to feel similar to prior kidney stones, stating has required lithotripsy in the past. Currently he denies any fevers, chills, URI symptoms, chest pain, shortness of breath, abdominal pain, nausea, vomiting, dysuria, urinary frequency, urinary retention, hematuria. Related Data Home Medications Medication Instructions Recorded Confirmed finasteride 5 mg tablet 5 mg PO DAILY 08/10/21 01/11/22 Previous Rx's Medication Instructions Recorded cyanocobalamin (vitamin B-12) 1,000 mcg PO DAILY #90 caps 03/26/21 1,000 mcg capsule magnesium oxide 400 mg PO DAILY #30 tabs 05/10/21 amlodipine 10 mg tablet 10 mg PO DAILY 90 days #90 tabs 01/11/22 atorvastatin 40 mg tablet 40 mg PO DAILY #90 tabs 01/11/22 lisinopril 40 mg tablet 40 mg PO DAILY #90 tabs 01/11/22 ibuprofen 600 mg tablet 600 mg PO Q8H PRN pain #30 tabs 01/26/22 oxycodone 5 mg tablet 5 mg PO Q6H PRN pain #10 tabs 01/26/22 Allergies Allergy/AdvReac Type Severity Reaction Status Date / Time codeine Allergy Unknown nausea and Verified 01/11/22 14:18 vomitting Review of Systems Review of Systems: Constitutional : No Weight loss, No Fever, No Chills ENT/Mouth :? No sore throat, No Rhinorrhea Eyes: No Swelling, No Redness Cardiovascular : No Chest Pain, No SOB, No Edema Respiratory : No Cough, No Sputum, No Wheezing Gastrointestinal : No Nausea, no Vomiting, no Diarrhea, no abdominal pain, No Hematochezia, No Melena Genitourinary : Positive left flank pain, No Dysuria, No Urinary Frequency, No Hematuria, No Urgency? Musculoskeletal : No joint pain, No Myalgias, No Joint Swelling Skin : No Skin Lesions, No rash Neuro : No Weakness, No Numbness, No Dizziness, No Headache Psych : No Anxiety/Panic, No Depression Heme/Lymph: No Bruising, No Lymphadenopathy Endocrine : No Polyuria, No Polydipsia Yes all other systems are reviewed and are negative [facility] Past Medical History Attestation statement: The following information was validated with the patient. Source: old records reviewed Medical History BPH (benign prostatic hyperplasia) Chronic kidney disease (CKD) stage G1/A1, glomerular filtration rate (GFR) equal to or greater than 90 mL/min/1.73 square meter and albuminuria creatinine ratio less than 30 mg/g Closed fracture of right distal fibula Diabetic nephropathy GERD (gastroesophageal reflux disease) Gout History of renal calculi Hypercholesterolemia Hypertension Obesity (BMI 30-39.9) Type 2 diabetes mellitus with hyperglycemia Vitamin D deficiency Surgical History S/P TURP Family History Family History Father Bladder cancer Mother Breast cancer Maternal Uncle Myocardial infarction Brother Alzheimers disease Social History Social History Housing: Condominium Alcohol intake: current Alcohol intake frequency: holidays/special occasions only Patient Tobacco Use Status: Never used Tobacco e-Cigarette/Vaping Use: Never Used Second Hand Smoke Exposure: No Advance Directives: Yes Advance Directives Information Provided: No Advance Directives on File: No service: No Current occupational status: employed Current occupational exposures/hazards: No Cognitive needs: No Hearing needs: Yes (hearing aids) Vision needs: Yes (glasses ) Physical Exam Vital Signs: Vital Signs: Last Vital Signs Temp 97.8 F 01/26/22 10:11 Pulse 80 01/26/22 10:11 Resp 12 01/26/22 10:11 BP 111/65 01/26/22 10:11 Pulse Ox 98 01/26/22 10:11 O2 Del Method 01/26/22 10:11 BMI result Body Mass Index 36.7 Vital signs have been reviewed as normal and appeared to be correct. Blood pressure normal.? Heart rate normal.? Respiration rate normal. Temperature normal.? Oxygen saturation normal. Appearance: Alert.?Oriented to person, place and time. No acute distress.?Normal affect. Eyes: Pupils equal, round and reactive to light.? ENT: Pharynx normal.?? Neck: Normal inspection.? Neck supple.?? CVS: Heart sounds normal. Normal heart rate and rhythm.? Pulses normal.?? Respiratory: No respiratory distress.? Lung sounds clear to auscultation bilaterally?? Abdomen: Soft and non-tender. Normoactive bowel sounds. Left CVA tenderness? Skin: Skin warm and dry.? Normal skin color.? Extremities: No lower extremity edema.? Neuro: Moves all extremities spontaneously. Sensation intact bilaterally. CN II-XII intact. No focal neuro deficits. Ambulates with normal steady gait. Course Course Course Narrative: Patient is a 56-year-old male with a past medical history of hearing deficit, BPH, nephrolithiasis, CKD, type 2 diabetes, GERD, gout, hypercholesterolemia, hypertension, obesity presenting to emergency department for evaluation of left flank pain. At the time of examination he is overall well-appearing. Vital signs are stable. Afebrile without tachycardia. Abdominal exam is benign, does have left CVA tenderness. Symptoms at this time most concerning for nephrolithiasis, will obtain CBC, CMP, urinalysis, CT of the abdomen and pelvis to evaluate for obstructing stone, hydronephrosis, pyelonephritis. Patient to receive morphine 4 mg IV for pain, and ondansetron 4 mg IV for nausea. Disposition pending results. Reevaluation(s) Reevaluation #1: CBC reveals a normocytic anemia consistent with baseline. CMP is overall unremarkable, no HCAZ present. Urinalysis does not appear consistent with urinary tract infection, trace blood present. CT of the abdomen reveals, hepatosplenomegaly, cholelithiasis without acute cholecystitis, bilateral renal calculi without ureteral calculi, hydroureteronephrosis, or perinephric stranding. Pain is most likely secondary to renal colic, not consistent with pyelonephritis or obstruction. Discussed these findings with patient. Discussed plan of care for discharge home, NSAIDs, analgesic, outpatient follow-up with Urology. Reviewed worrisome signs symptoms to return back to the emergency department for. All questions answered, patient discharged home in stable condition. Time: 11:10 [facility] - Male Genitourinary Medical Records Attestation: I reviewed the patient's medical records. Lab Data Attestation: I reviewed the patient's lab results. Result diagrams: 01/26/22 09:34 01/26/22 09:34 Labs: Lab Results 01/26/22 01/26/22 01/26/22 Range/Units 09:34 09:34 09:34 WBC 7.2 (4.8-10.8) X10*3/uL RBC 5.09 (4.60-5.80) X10*6/uL Hgb 13.2 L (14.0-18.0) g/dl Hct 41.2 L (42.0-52.0) % MCV 80.9 (80.0-98.0) fL MCH 25.9 L (27.0-33.0) pg MCHC 32.0 (31.0-36.0) g/dl RDW 14.0 (11.0-16.0) % Plt Count 308 (160-400) X10*3/uL MPV 10.4 (9.4-12.4) fL Immature Gran % (Auto) 0.1 (0.0-0.4) % Neut % (Auto) 73.7 H (45-73) % Lymph % (Auto) 18.8 L (20-40) % [place] % (Auto) 6.5 (2-11) % Eos % (Auto) 0.6 (0-4) % Baso % (Auto) 0.3 (0-2) % Lymph # (Auto) 1.4 (1.2-4.9) X10*3/uL [place] # (Auto) 0.5 (0.1-1.2) X10*3/uL Eos # (Auto) 0.0 (0.0-0.4) X10*3/uL Baso # (Auto) 0.0 (0.0-0.2) X10*3/uL Abs Immat Gran (auto) 0.01 (0.00-0.03) X10*3/uL Absolute Neuts (auto) 5.3 (2.0-8.3) x10*3/uL Absolute Nucleated RBC 0.000 (0.0-0.012) X10*3/uL Nucleated RBC % (auto) 0.0 (0.0-0.2) /100WBC Sodium 141 (135-145) mmol/L Potassium 4.7 (3.3-5.1) mmol/L Chloride 106 (96-108) mmol/L Carbon Dioxide 26 (22-29) mmol/L Anion Gap 14 (12-20) BUN 17 H (9-16) mg/dL Creatinine 0.81 (0.5-1.4) mg/dL Estim Creat Clear Calc 123.1 Estimated GFR > 60 Random Glucose 105 (60-115) mg/dL Calcium 9.3 D (8.4-10.2) mg/dL Total Bilirubin 0.4 (0.0-1.0) mg/dL AST 15 (5-37) U/L ALT 19 (0-40) U/L Alkaline Phosphatase 133 H (39-117) U/L Total Protein 7.2 (6.5-8.0) g/dL Albumin 4.1 (3.5-5.0) g/dL Urine Color Urine Appearance Urine pH (5.0-9.0) Ur Specific [place] (1.005-1.025) Urine Protein (Neg-Trace) mg/dL Urine Glucose (UA) (Negative) mg/dL Urine Ketones (Negative) mg/dL Urine Blood (Negative) Urine Nitrite (Negative) Ur Leukocyte Esterase (Negative) Urine RBC (0-2) /HPF Urine WBC (0-5) /HPF Ur Squamous Epith Cells (0-2) /HPF Urine Bacteria (None Seen) Hyaline Casts (0-2) /LPF COVID-19 (FIDEL) Negative (Negative) COVID-19 Clin Com See Note 01/26/22 Range/Units 09:34 WBC (4.8-10.8) X10*3/uL RBC (4.60-5.80) X10*6/uL Hgb (14.0-18.0) g/dl Hct (42.0-52.0) % MCV (80.0-98.0) fL MCH (27.0-33.0) pg MCHC (31.0-36.0) g/dl RDW (11.0-16.0) % Plt Count (160-400) X10*3/uL MPV (9.4-12.4) fL Immature Gran % (Auto) (0.0-0.4) % Neut % (Auto) (45-73) % Lymph % (Auto) (20-40) % [place] % (Auto) (2-11) % Eos % (Auto) (0-4) % Baso % (Auto) (0-2) % Lymph # (Auto) (1.2-4.9) X10*3/uL [place] # (Auto) (0.1-1.2) X10*3/uL Eos # (Auto) (0.0-0.4) X10*3/uL Baso # (Auto) (0.0-0.2) X10*3/uL Abs Immat Gran (auto) (0.00-0.03) X10*3/uL Absolute Neuts (auto) (2.0-8.3) x10*3/uL Absolute Nucleated RBC (0.0-0.012) X10*3/uL Nucleated RBC % (auto) (0.0-0.2) /100WBC Sodium (135-145) mmol/L Potassium (3.3-5.1) mmol/L Chloride (96-108) mmol/L Carbon Dioxide (22-29) mmol/L Anion Gap (12-20) BUN (9-16) mg/dL Creatinine (0.5-1.4) mg/dL Estim Creat Clear Calc Estimated GFR Random Glucose (60-115) mg/dL Calcium (8.4-10.2) mg/dL Total Bilirubin (0.0-1.0) mg/dL AST (5-37) U/L ALT (0-40) U/L Alkaline Phosphatase (39-117) U/L Total Protein (6.5-8.0) g/dL Albumin (3.5-5.0) g/dL Urine Color Yellow Urine Appearance Clear Urine pH 6.0 (5.0-9.0) Ur Specific [place] 1.025 (1.005-1.025) Urine Protein 100 (2+) H (Neg-Trace) mg/dL Urine Glucose (UA) Negative (Negative) mg/dL Urine Ketones Negative (Negative) mg/dL Urine Blood Trace H (Negative) Urine Nitrite Negative (Negative) Ur Leukocyte Esterase Trace H (Negative) Urine RBC 0-2 (0-2) /HPF Urine WBC 21-50 H (0-5) /HPF Ur Squamous Epith Cells 0-2 (0-2) /HPF Urine Bacteria None Seen (None Seen) Hyaline Casts 0-2 (0-2) /LPF COVID-19 (FIDEL) (Negative) COVID-19 Clin Com Imaging Data CT scan - abdomen: Radiologist's impression: CT/CT abdomen pelvis wo IV con IMPRESSION: *? Large body habitus and mild hepatosplenomegaly. *? Cholelithiasis without evidence of acute cholecystitis. *? Again noted are bilateral renal stones without ureteral calculi, hydroureteronephrosis or perinephric edema. *? Chronically enlarged prostate gland. ? Discharge Plan Discharge Clinical Impression: Renal colic on left side, Bilateral nephrolithiasis Patient Disposition: Home, Self-Care Instructions: Kidney Stones (ED), Renal Colic (ED) Additional Instructions: As we discussed, your CT scan shows that you do have kidney stones to both kidneys. They are not obstructing, or causing inflammation to the kidneys. You can take ibuprofen 200 mg, 3 tablets (600mg) every 6-8 hours as needed for pain, in addition to Tylenol 500 mg, 2 tablets (1,000mg) every 4-6 hours as needed for pain, but not to exceed 3 doses daily (3,000mg).? Additionally, you have given a new prescription for oxycodone to use only as needed for severe pain, this is an opiate medication and it may be addicting. It can also cause constipation. Do not drive, drink alcohol, or operate machinery while taking this medication. Contact your urologist to arrange for an outpatient appointment over the next 2 weeks, Dr. Vergara Return to the emergency department any new or worsening symptoms or concerns. This includes but is not limited to fevers, chills, chest pain, shortness of breath, nausea persistent vomiting, abdominal pain, inability to urinate, pain with urination, blood in urine. Prescriptions: New oxycodone 5 mg tablet 5 mg PO Q6H PRN (Reason: pain) Qty: 10 0RF Rx Instructions: Partial Fill upon patient request. ibuprofen 600 mg tablet 600 mg PO Q8H PRN (Reason: pain) Qty: 30 0RF No Action cyanocobalamin (vitamin B-12) 1,000 mcg capsule 1,000 mcg PO DAILY Qty: 90 1RF magnesium oxide 400 mg magnesium tablet 400 mg PO DAILY Qty: 30 0RF amlodipine 10 mg tablet 10 mg PO DAILY 90 Days Qty: 90 1RF lisinopril 40 mg tablet 40 mg PO DAILY Qty: 90 2RF atorvastatin 40 mg tablet 40 mg PO DAILY Qty: 90 2RF finasteride 5 mg tablet 5 mg PO DAILY Referrals: Po,Nicki Hill MD [Primary Care Provider] - Interventions: ED Discharge Assessment Last Done: 01/26/22 11:38 Discharge Date/Time: 01/26/22 11:39
[2022-01-26 09:38] LABS: MANUAL DIFF FLAG NO
[2022-01-26 09:40] LABS: Basophils Percent Auto 0.3 % (0-2); Eosinophils Percent Auto 0.6 % (0-4); Hematocrit 41.2 % (42.0-52.0); Hemoglobin 13.2 g/dl (14.0-18.0); Imm Gran Abs Auto 0.01 X10*3/uL (0.00-0.03); Imm Gran Pct Auto 0.1 % (0.0-0.4); Lymphocytes Absolute Auto 1.4 X10*3/uL (1.2-4.9); Lymphocytes Percent Auto 18.8 % (20-40); Mean Corpuscular Hemoglobin 25.9 pg (27.0-33.0); Mean Corpuscular Volume 80.9 fL (80.0-98.0); Mean Platelet Volume 10.4 fL (9.4-12.4); Monocytes Absolute Auto 0.5 X10*3/uL (0.1-1.2); Monocytes Percent Auto 6.5 % (2-11); Neutrophils Absolute Auto 5.3 x10*3/uL (2.0-8.3); Neutrophils Percent Auto 73.7 % (45-73); Platelet Count 308 X10*3/uL (160-400); Red Blood Count 5.09 X10*6/uL (4.60-5.80); White Blood Count 7.2 X10*3/uL (4.8-10.8)
[2022-01-26 09:41] LABS: Appearance Urine Clear; Color Urine Yellow; Glucose Urine UA Negative (Negative); Leukocyte Esterase Urine Trace (Negative); Nitrite Urine Negative (Negative); Specific Gravity - Urine 1.025 (1.005-1.025); UMIC TRIGGER UACC YES; Urine Blood Trace (Negative); Urine Ketones Negative (Negative); Urine Protein 100 (2+) mg/dL (Neg-Trace)
[2022-01-26 09:44] LABS: Bacteria Urine None Seen (None Seen); Hyaline Casts Urine 0-2 /LPF (0-2); RBC Urine 0-2 /HPF (0-2); Squamous Epithelial Cell Urine 0-2 /HPF (0-2); UACC Culture Trigger YES; WBC Urine 21-50 /HPF (0-5)
[2022-01-26] MEDS: ondansetron HCL 4 MG/2 ML VIAL IVPUSH (09:49)
[2022-01-26] MEDS: Morphine Sulfate 4 MG/ML CARTRIDGE IVPUSH (09:49)
[2022-01-26 09:54] LABS: COVID-19 Test Negative (Negative); IDNOW Serial# 9DB6401D
[2022-01-26 10:00] LABS: Alanine Aminotransferase 19 U/L (0-40); Albumin Level 4.1 g/dL (3.5-5.0); Alkaline Phosphatase 133 U/L (39-117); Anion Gap 14 (12-20); Aspartate Amino Transferase 15 U/L (5-37); Bilirubin Total 0.4 mg/dL (0.0-1.0); Blood Urea Nitrogen 17 mg/dL (9-16); Calcium 9.3 mg/dL (8.4-10.2); Carbon Dioxide 26 mmol/L (22-29); Chloride 106 mmol/L (96-108); Creatinine Clr Calc Pharmacy 123.1; Estimated Glomerular Filt Rate > 60; Glucose Random 105 mg/dL (60-115); Potassium 4.7 mmol/L (3.3-5.1); Sodium 141 mmol/L (135-145); Total Protein 7.2 g/dL (6.5-8.0)
[2022-01-26 10:11] VITALS: BP 111/65; PULSE 80; RESP 12; TEMP 36.6; O2SAT 98
== END 2022-01-26 11:39 | disposition home or self-care (01) ==
PROVIDERS: Nurse Practitioner Family; Emergency Provider Emergency Medicine; PCP Internal Medicine
DX: N20.0 Calculus of kidney (principal); N23 Unspecified renal colic; Z20.822 Contact with and (suspected) exposure to COVID-19; Z79.899 Other long term (current) drug therapy
CPT/HCPCS: 74176; 80053; 81001; 85025; 87086; 87635; 96374; 96375; 99283; 99284; J2270; J2405

== ENCOUNTER 2022-07-06 08:16 | Outpatient (REF) | payer OTHER, SELFPAY ==
[2022-07-06 08:28] LABS: MANUAL DIFF FLAG NO
[2022-07-06 08:46] LABS: Basophils Absolute Auto 0.1 X10*3/uL (0.0-0.2); Basophils Percent Auto 0.8 % (0-2); Eosinophils Absolute Auto 0.2 X10*3/uL (0.0-0.4); Eosinophils Percent Auto 2.6 % (0-4); Hematocrit 44.5 % (42.0-52.0); Hemoglobin 14.5 g/dl (14.0-18.0); Imm Gran Abs Auto 0.02 X10*3/uL (0.00-0.03); Imm Gran Pct Auto 0.3 % (0.0-0.4); Lymphocytes Absolute Auto 1.7 X10*3/uL (1.2-4.9); Lymphocytes Percent Auto 22.1 % (20-40); Mean Corpuscular HGB Conc 32.6 g/dl (31.0-36.0); Mean Corpuscular Hemoglobin 26.6 pg (27.0-33.0); Mean Corpuscular Volume 81.7 fL (80.0-98.0); Mean Platelet Volume 10.7 fL (9.4-12.4); Monocytes Absolute Auto 0.5 X10*3/uL (0.1-1.2); Monocytes Percent Auto 6.1 % (2-11); Neutrophils Absolute Auto 5.2 x10*3/uL (2.0-8.3); Neutrophils Percent Auto 68.1 % (45-73); Platelet Count 309 X10*3/uL (160-400); Red Blood Count 5.45 X10*6/uL (4.60-5.80); Red Cell Distribution Width 13.8 % (11.0-16.0); White Blood Count 7.7 X10*3/uL (4.8-10.8)
[2022-07-06 08:54] LABS: Estimated Average Glucose 126 mg/dL
[2022-07-06 09:26] LABS: Creatinine Urine 145.26 mg/dL; Microalbum/Creatinine Ratio Ur 1053.9 ug/mg cr
[2022-07-06 09:27] LABS: Alanine Aminotransferase 22 U/L (0-40); Alkaline Phosphatase 132 U/L (39-117); Anion Gap 11 (12-20); Aspartate Amino Transferase 14 U/L (5-37); Bilirubin Total 0.5 mg/dL (0.0-1.0); Blood Urea Nitrogen 10 mg/dL (9-16); Calcium 9.5 mg/dL (8.4-10.2); Carbon Dioxide 28 mmol/L (22-29); Chloride 105 mmol/L (96-108); Cholesterol 141 mg/dL; Estimated Glomerular Filt Rate > 60; Glucose Random 119 mg/dL (60-115); HDL Cholesterol 36 mg/dL; LDL Cholesterol Calculated 81 mg/dl; Potassium 4.3 mmol/L (3.3-5.1); Sodium 140 mmol/L (135-145); Total Protein 6.9 g/dL (6.5-8.0); Triglycerides 121 mg/dL
[2022-07-06 09:57] LABS: Folate 11.2 ng/mL (> or = 4.0); TSH reflex Free T4 1.01 uIU/mL (0.32-4.0); Vitamin B12 564 pg/mL (200-900)
== END 2022-07-06 08:17 | disposition home or self-care (01) ==
LOC: HO.LAB 08:16
PROVIDERS: PCP Internal Medicine; Visit Provider Nurse Practitioner Family
DX: E78.00 Pure hypercholesterolemia, unspecified (principal); I10 Essential (primary) hypertension; E11.65 Type 2 diabetes mellitus with hyperglycemia
CPT/HCPCS: 36415; 80053; 80061; 82043; 82607; 82746; 83036; 84443; 85025

== ENCOUNTER 2022-09-20 15:24 | Outpatient (REF) | payer SELFPAY | END 2022-09-20 15:25 | disposition home or self-care (01) | LOC: HO.HAP 15:24 | PROVIDERS: Visit Provider Internal Medicine | DX: Z46.1 Encounter for fitting and adjustment of hearing aid (principal); H90.3 Sensorineural hearing loss, bilateral | CPT/HCPCS: 92592 ==

== ENCOUNTER 2022-11-08 15:08 | Outpatient (AMB) | payer OTHER, SELFPAY ==
[2022-11-08 15:11] VITALS: BP 152/86; PULSE 105; O2SAT 96; BMI 36.5
--- NOTE | 2022-11-08 15:11 | MHC.PC.OV ---
Vital Signs 11/08/22 15:11 11/08/22 15:35 Height 5 ft 8 in Weight 240 lb BMI 36.5 BP 152/86 H 120/80 Blood Pressure Location Lt brachial Lt brachial Position Sitting Sitting Pulse 105 H Pulse Source Pulse Oximeter Temp Source Skin Pulse Oximetry (%) 96 Oxygen Delivery Method Room Air Intake Visit Reasons: 3M Follow up Allergies codeine Allergy (Unknown, Verified 07/12/22 15:14) nausea and vomitting Medication List - Last Reconciled 11/08/22 by Nicki Haddad MD amlodipine 10 mg PO DAILY 90 days atorvastatin 40 mg PO DAILY cyanocobalamin (vitamin B-12) 1,000 mcg PO DAILY lisinopril 40 mg PO DAILY Tobacco use date assessed: 11/08/22 Dental Screening Dental Screen Date: 11/08/22 Did you have a dental visit in the last 12 months?: Yes Did you have a dental problem in the last 6 months where you did not have access to dental care?: No Was dental information given to patient?: Patient has dentist HPI 3M Follow up HPI Details 57-year-old obese male with diabetes mellitus hypertension hypercholesterolemia GERD last seen in June 2022. Patient's last hemoglobin A1c was 6.0. Patient's last colonoscopy was 2011. Patient follows up with urology seen June 2022 nephrolithiasis had ESWL still has overall stone burden calcium oxalate and calcium phosphate stones status post TURP patient's last blood work was in June [facility] Medical History (Updated 07/12/22 @ 15:51 by Nicki Haddad MD) BPH (benign prostatic hyperplasia) Chronic kidney disease (CKD) stage G1/A1, glomerular filtration rate (GFR) equal to or greater than 90 mL/min/1.73 square meter and albuminuria creatinine ratio less than 30 mg/g Closed fracture of right distal fibula Diabetic nephropathy GERD (gastroesophageal reflux disease) Gout History of renal calculi Hypercholesterolemia Hypertension Obesity (BMI 30-39.9) Type 2 diabetes mellitus with hyperglycemia Vitamin D deficiency Surgical History S/P TURP Family History Father Bladder cancer Mother Breast cancer Maternal Uncle Myocardial infarction Brother Alzheimers disease Social History Housing: Condominium Alcohol intake: current Alcohol intake frequency: holidays/special occasions only Patient Tobacco Use Status: Never used Tobacco e-Cigarette/Vaping Use: Never Used Second Hand Smoke Exposure: No service: No Current occupational status: employed Current occupational exposures/hazards: No Cognitive needs: No Hearing needs: Yes (hearing aids) Vision needs: Yes (glasses ) Questionnaire Thrive Questionnaire Date Thrive assessed: 07/12/22 AUDIT C Alcohol Use Questionnaire (AUDIT-C) 1. How often do you have a drink containing alcohol?: Never 2. How many drinks containing alcohol do you have on a typical day when you are drinking?: 1 or 2 (0) 3. How often do you have six or more drinks on one occasion?: Never Total Score: 0 Score Reviewed/Action Taken: No KRYSTAL-7 AMB Questionnaire KRYSTAL-7 Date KRYSTAL - 7 assessed: 07/12/22 Source: Developed by Drs. Pedro Markham, Yani Rivas, Krunal Green and colleagues, with an educational yunier from [email or web address]. Physical exam (Primary Care) Vital Signs: Last Vital Signs Pulse 105 H 11/08/22 15:11 BP 152/86 H 11/08/22 15:11 Pulse Ox 96 11/08/22 15:11 Oxygen Delivery Method Room Air 11/08/22 15:11 BMI result Body Mass Index 36.5 Tobacco/Smoking Status: Tobacco use Status Tobacco use date assessed 11/08/22 11/08/22 15:16 Patient Tobacco Use Status Never used Tobacco 11/08/22 15:11 Tobacco use type 09/26/20 13:51 e-Cigarette/Vaping Use Never Used 11/08/22 15:11 Thrive Assessment: Date of Thrive Assessment Date Thrive assessed 07/12/22 11/08/22 15:11 Const General: alert; No acute distress Eyes Conjunctivae: conjunctivae normal Resp Auscultation: clear to auscultation bilaterally Cardio Rate: regular rate Rhythm: regular rhythm GI Inspection: Yes normal to inspection Extrem General: Yes normal to inspection and No edema Results AMB Hemoglobin A1c AMB Hemoglobin A1c 5.4 % Last Edit by MAITE Navarro on 11/08/22 15:28 Results Reviewed Results Reviewed: Laboratory Last Values Hgb A1c (Clinic) 5.4 % (4.0-6.0) 11/08/22 14:47 Assessment and Plan Assessment & Plan (1) Nephrolithiasis: Code(s): N20.0 - Calculus of kidney Plan: Increase oral fluids, patient is followed up by Urology and stone analysis being requested (2) Type 2 diabetes mellitus with hyperglycemia: Comment: Dr. Evans Code(s): E11.65 - Type 2 diabetes mellitus with hyperglycemia Qualifiers: Diabetes mellitus termite renewal inspector insulin use: without termite renewal inspector use Qualified Code(s): E11.65 - Type 2 diabetes mellitus with hyperglycemia Plan: Decrease the amount of carbohydrate intake, pasta, bread, rice and potatoes are all sugar and that is aside from all the sweet stuff, remember that fruits are good but they are Sweet also. Hemoglobin A1c goal of less than 6.5. Patient is presently on diet control (3) Hypercholesterolemia: Code(s): E78.00 - Pure hypercholesterolemia, unspecified Plan: Avoid fried foods, chicken skin, eggs, butter margarine, pastries and meat. Be it pork or beef they have a lot of cholesterol LDL goal of less than 100 patient is on atorvastatin 40 mg once a day (4) BPH (benign prostatic hyperplasia): Code(s): N40.0 - Benign prostatic hyperplasia without lower urinary tract symptoms Qualifiers: Lower urinary tract symptom presence: symptoms present Lower urinary tract symptom detail: urinary frequency Qualified Code(s): N40.1 - Benign prostatic hyperplasia with lower urinary tract symptoms; R35.0 - Frequency of micturition Plan: Patient follows up with urology (5) GERD (gastroesophageal reflux disease): Code(s): K21.9 - Gastro-esophageal reflux disease without esophagitis Qualifiers: Esophagitis presence: without esophagitis Qualified Code(s): K21.9 - Gastro-esophageal reflux disease without esophagitis Plan: Avoid the foods that causes that usually spicy foods, tomato products, juices, coffee, soda and foods that your sensitive to. After eating do not lie down, allow 3-4 hours before in lie down. And keep the head of bed above 30 degrees to avoid the acid from going up. (6) Hypertension: Code(s): I10 - Essential (primary) hypertension Qualifiers: Hypertension type: essential hypertension Qualified Code(s): I10 - Essential (primary) hypertension Plan: Continue with blood pressure medication. Decrease salt intake and exercise patient is on lisinopril 40 mg once a day and amlodipine 10 mg once a day (7) Cholelithiasis: Code(s): K80.20 - Calculus of gallbladder without cholecystitis without obstruction Plan: Low-fat diet and exercise (8) Colon cancer screening: Code(s): Z12.11 - Encounter for screening for malignant neoplasm of colon Plan: Reminded about colonoscopy Orders: Orders AMB Hemoglobin A1c Today E11.65 - Type 2 diabetes mellitus with hyperglycemia Referrals Ophthalmology Referral E11.65 - Type 2 diabetes mellitus with hyperglycemia Cologuard Test Z12.11 - Encounter for screening for malignant neoplasm of colon, Z12.12 - Encounter for screening for malignant neoplasm of rectum Medications: Refilled atorvastatin 40 mg PO DAILY 90 tabs 2RF E78.00 - Pure hypercholesterolemia, unspecified amlodipine 10 mg PO DAILY 90 tabs 1RF 90 days I10 - Essential (primary) hypertension lisinopril 40 mg PO DAILY 90 tabs 2RF I10 - Essential (primary) hypertension Discontinued oxycodone Partial Fill upon patient request. Discontinued Reason: Ancillary Entered New Order 5 mg PO Q6H PRN 10 tabs 0RF pain ibuprofen Discontinued Reason: Ancillary Entered New Order 600 mg PO Q8H PRN 30 tabs 0RF pain magnesium oxide Discontinued Reason: Change Referral Type 400 mg PO DAILY 30 tabs 0RF R20.0 - Anesthesia of skin, R20.2 - Paresthesia of skin polyethylene glycol 3350 (Miralax) As directed by gastroenterology department at [facility] Discontinued Reason: Ancillary Entered New Order 238 grams PO ONCE 238 grams 0RF Z12.11 - Encounter for screening for malignant neoplasm of colon bisacodyl (Dulcolax (bisacodyl)) take 2 tabs at noon the day before your colonoscopy Discontinued Reason: Ancillary Entered New Order 10 mg (2 x 5 mg) PO ONCE 2 tabs 0RF 1 day Z12.11 - Encounter for screening for malignant neoplasm of colon Coding Level of Care Code Est Pt Level 4 (97999) Diagnoses Nephrolithiasis N20.0 Type 2 diabetes mellitus with hyperglycemia E11.65 Diabetes mellitus assisted insulin use: without termite renewal inspector use Hypercholesterolemia E78.00 BPH (benign prostatic hyperplasia) N40.1; R35.0 Lower urinary tract symptom presence: symptoms present Lower urinary tract symptom detail: urinary frequency GERD (gastroesophageal reflux disease) K21.9 Esophagitis presence: without esophagitis Hypertension I10 Hypertension type: essential hypertension Cholelithiasis K80.20 Colon cancer screening Z12.11
[2022-11-08 15:35] VITALS: BP 120/80
== END 2022-11-08 15:42 | disposition home or self-care (01) ==
PROVIDERS: PCP Internal Medicine; Visit Provider Internal Medicine
DX: E11.65 Type 2 diabetes mellitus with hyperglycemia (principal); K21.9 Gastro-esophageal reflux disease without esophagitis; I10 Essential (primary) hypertension; N20.0 Calculus of kidney; E78.00 Pure hypercholesterolemia, unspecified; N40.1 Benign prostatic hyperplasia with lower urinary tract symptoms; R35.0 Frequency of micturition; K80.20 Calculus of gallbladder without cholecystitis without obstruction; Z12.11 Encounter for screening for malignant neoplasm of colon
CPT/HCPCS: 83036; 99214

== ENCOUNTER 2022-11-26 01:24 | Emergency (ER) | payer OTHER, SELFPAY ==
--- NOTE | ~2022-11-26 | CT_ITS ---
EXAMINATION: CT ABDOMEN AND PELVIS WITHOUT CONTRAST CLINICAL INFORMATION: Pain. COMPARISON: 01/26/2022 TECHNIQUE: Multidetector volumetric imaging was performed from the superior aspect of the liver through the pubic symphysis. Sagittal and coronal reformatted images were obtained on the technologist's workstation. This CT examination was performed using dose optimization techniques as appropriate, variously including the following: *Automated exposure control *Adjustment of mA and/or kV according to patient size (this includes techniques or standardized protocols for targeted exams where dose is matched to indication/reason for exam; i.e. extremities or head) *Use of iterative reconstruction technique DLP: 847 mGy-cm FINDINGS: LUNG BASES: The visualized lung bases are unremarkable. LIVER, GALLBLADDER, AND BILIARY TREE: The liver is normal in size, shape, and attenuation. No focal hepatic lesion or biliary ductal dilatation is present. Multiple gallstones are noted within a nondistended gallbladder. PANCREAS: Unremarkable. SPLEEN: Unremarkable. ADRENAL GLANDS: There is bilateral adrenal gland thickening and nodularity. KIDNEYS AND URETERS: Scattered bilateral renal calculi are noted measuring up to 7 mm. There are areas of scarring upper pole left kidney and midpole right kidney associated with parenchymal calcifications. There is no hydronephrosis. BLADDER: Unremarkable. GASTROINTESTINAL TRACT: There are diverticula of the descending and sigmoid colon without diverticulitis. The appendix is visualized and is within normal limits. ABDOMINAL WALL: No significant hernia is appreciated. LYMPH NODES: Normal. VASCULAR: Unremarkable. PELVIC VISCERA: The prostate gland is enlarged measuring 6.1 x 5 x 6.5 cm. OSSEOUS STRUCTURES: There is diffuse [id number] thoracolumbar disc degenerative change. CT/CT abdomen pelvis wo IV con IMPRESSION: 1. Bilateral nonobstructing renal calculi. 2. Descending and sigmoid colon diverticulosis without diverticulitis. 3. Cholelithiasis. 4. Prostate gland hypertrophy. Fleischner guidelines were followed.
[2022-11-26 01:40] VITALS: BP 153/73; PULSE 91; RESP 16; TEMP 36.4; O2SAT 97; BMI 35.8
[2022-11-26 01:50] LABS: Hematocrit 43.1 % (42.0-52.0); Hemoglobin 14.1 g/dl (14.0-18.0); Mean Corpuscular HGB Conc 32.7 g/dl (31.0-36.0); Mean Corpuscular Hemoglobin 26.9 pg (27.0-33.0); Mean Corpuscular Volume 82.3 fL (80.0-98.0); Mean Platelet Volume 10.5 fL (9.4-12.4); Platelet Count 301 X10*3/uL (160-400); Red Blood Count 5.24 X10*6/uL (4.60-5.80); Red Cell Distribution Width 13.6 % (11.0-16.0); White Blood Count 8.1 X10*3/uL (4.8-10.8)
[2022-11-26 02:06] LABS: Alanine Aminotransferase 22 U/L (0-40); Alkaline Phosphatase 123 U/L (39-117); Anion Gap 12 (12-20); Aspartate Amino Transferase 15 U/L (5-37); Bilirubin Total 0.3 mg/dL (0.0-1.0); Blood Urea Nitrogen 21 mg/dL (9-16); Calcium 9.8 mg/dL (8.4-10.2); Carbon Dioxide 25 mmol/L (22-29); Chloride 107 mmol/L (96-108); Creatinine Clr Calc Pharmacy 117.1; Estimated Glomerular Filt Rate > 60; Glucose Random 141 mg/dL (60-115); Lipase 25 U/L (8-78); Potassium 4.1 mmol/L (3.3-5.1); Sodium 140 mmol/L (135-145); Total Protein 7.4 g/dL (6.5-8.0)
--- NOTE | 2022-11-26 02:11 | ED.GENADULT ---
HPI - General Adult General Chief complaint: General Medical Stated complaint: ?kidney stones, pain left side Time Seen by Provider: 11/26/22 02:05 Source: patient Mode of arrival: ambulatory Limitations: no limitations History of Present Illness HPI narrative: Patient comes to the emergency room complaining of 10 hours of intermittent left-sided flank pain. Patient states that he has had kidney stones in the past and the pain is similar. The patient denies nausea vomiting or diarrhea, no abdominal pain. Denies any back injuries, no heavy lifting. Patient states that a few months ago, patient went to [facility] and needed lithotripsy Related Data Previous Rx's Medication Instructions Recorded cyanocobalamin (vitamin B-12) 1,000 mcg PO DAILY #90 caps 03/26/21 1,000 mcg capsule amlodipine 10 mg tablet 10 mg PO DAILY 90 days #90 tabs 11/08/22 atorvastatin 40 mg tablet 40 mg PO DAILY #90 tabs 11/08/22 lisinopril 40 mg tablet 40 mg PO DAILY #90 tabs 11/08/22 levofloxacin 500 mg tablet 500 mg PO DAILY #9 tabs 11/26/22 Allergies Allergy/AdvReac Type Severity Reaction Status Date / Time codeine Allergy Unknown nausea and Verified 07/12/22 15:14 vomitting Review of Systems Review of Systems: Constitutional : No Weight loss, No Fever, No Chills, No Night Sweats, No Fatigue, No Malaise ENT/Mouth : No Hearing loss, No Ear Pain, No Nasal Congestion, No Sinus Pain, No Hoarseness, No sore throat, No Rhinorrhea, No Swallowing Difficulty Eyes: No Eye Pain, No Swelling, No Redness, No Foreign Body, No Discharge, No Vision Changes Cardiovascular : No Chest Pain, No SOB, No Dyspnea on Exertion, No Orthopnea, No Edema, No Palpitations Respiratory : No Cough, No Sputum, No Wheezing, No Smoke Exposure, No Dyspnea Gastrointestinal : No Nausea, No Vomiting, No Diarrhea, No Constipation, No abdominal Pain, No Hematochezia, No Melena Genitourinary : no irregular bleeding, No Dysuria, No Urinary Frequency, No Hematuria, No Urinary Incontinence, No Urgency, complaining of intermittent left-sided Flank Pain, No Urinary Flow Changes, No Hesitancy Musculoskeletal : No joint pain, No Myalgias, No Joint Swelling Skin : No Skin Lesions, No rash Neuro : No Weakness, No Numbness, No Paresthesias, No Loss of Consciousness, No Dizziness, No Headache Psych : No Anxiety/Panic, No Depression, No SI/HI/AH/VH, No Social Issues, Heme/Lymph: No Bruising, No Bleeding,No Lymphadenopathy Endocrine : No Polyuria, No Polydipsia, No Temperature Intolerance [facility] Past Medical History Medical History BPH (benign prostatic hyperplasia) Chronic kidney disease (CKD) stage G1/A1, glomerular filtration rate (GFR) equal to or greater than 90 mL/min/1.73 square meter and albuminuria creatinine ratio less than 30 mg/g Closed fracture of right distal fibula Diabetic nephropathy GERD (gastroesophageal reflux disease) Gout History of renal calculi Hypercholesterolemia Hypertension Obesity (BMI 30-39.9) Type 2 diabetes mellitus with hyperglycemia Vitamin D deficiency Surgical History S/P TURP Family History Family History Father Bladder cancer Mother Breast cancer Maternal Uncle Myocardial infarction Brother Alzheimers disease Social History Social History Housing: Condominium Alcohol intake: current Alcohol intake frequency: holidays/special occasions only Patient Tobacco Use Status: Never used Tobacco Smoked in Last 30 Days: No e-Cigarette/Vaping Use: Never Used Second Hand Smoke Exposure: No Use of substances other than those prescribed or required for medical reasons: No Advance Directives: No Advance Directives Information Provided: Yes service: No Current occupational status: employed Current occupational exposures/hazards: No Cognitive needs: No Hearing needs: Yes (hearing aids) Vision needs: Yes (glasses ) Physical Exam ED Vital Signs: Vital Signs - 24 hr 11/26/22 01:40 11/26/22 02:25 11/26/22 03:51 Temperature 97.5 F 98.7 F 98.0 F Pulse Rate 91 86 78 Respiratory Rate 16 18 16 Blood Pressure 153/73 H 132/69 142/73 H Pulse Oximetry 97 95 98 Oxygen Delivery Method Room Air Room Air Room Air 11/26/22 06:27 Temperature 98.9 F Pulse Rate 69 Respiratory Rate 16 Blood Pressure 121/59 L Pulse Oximetry 97 Oxygen Delivery Method Room Air BMI result Body Mass Index 35.8 Const Other: Appearance: Alert. Oriented X3. No acute distress. Eyes: Pupils equal, round and reactive to light. ENT: Pharynx normal. Neck: Normal inspection. Neck supple. No lymph nodes noted. No crepitus CVS: Normal heart rate and rhythm. Pulses normal. Normal S1 and S2 Respiratory: No respiratory distress. Breath sounds normal. No Wheezing. No rales Abdomen: Soft and nontender. No rigidity. No distention. Mild CVA tenderness on the left Skin: Skin warm and dry. Normal skin color. Normal skin turgor. Extremities: No lower extremity edema. No Lacerations. No Rash Neuro: Oriented X 3. No motor deficit. No sensory deficit. Moving all extremities. No slurred speech. CN 2 through 12 grossly intact Psych: calm, cooperative, normal affect Course Course Course Narrative: All of patient's labs pending -patient received 1 dose of IM ketorolac CT scan pending Medications Administered Discontinued Medications Generic Name Dose Route Start Last Admin Trade Name Freq PRN Reason Stop Dose Admin Ketorolac Tromethamine 60 mg 11/26/22 02:11 11/26/22 02:28 Ketorolac Tromethamine 60 Mg/2 Ml Vial IM 11/26/22 02:12 60 mg ONCE ONE Administration Medical Decision Making Medical Decision Making [facility] Narrative: -my interpretation of CT scan: No ureterolithiasis. -white blood cell count negative, no fever chills, normal blood pressure -my interpretation of labs, patient has a UTI. Sepsis not suspected. Patient given the 1st dose of Levaquin in the emergency room. -clinically, patient has pyelonephritis. Differential Diagnosis Differential Diagnoses: The differential diagnosis associated with the presentation includes (Pyelonephritis, UTI, ureterolithiasis, diverticulitis) Admission/Observation Consideration of admission/observation: Escalation of care including admission/observation considered (Patient complaining of left flank pain, admission was considered.) Lab Data [facility] Lab Attestation statement: I reviewed the patient's lab results. 11/26/22 01:45 11/26/22 01:45 Labs: Lab Results 11/26/22 11/26/22 11/26/22 Range/Units 01:45 01:45 03:54 WBC 8.1 (4.8-10.8) X10*3/uL RBC 5.24 (4.60-5.80) X10*6/uL Hgb 14.1 (14.0-18.0) g/dl Hct 43.1 (42.0-52.0) % MCV 82.3 (80.0-98.0) fL MCH 26.9 L (27.0-33.0) pg MCHC 32.7 (31.0-36.0) g/dl RDW 13.6 (11.0-16.0) % Plt Count 301 (160-400) X10*3/uL MPV 10.5 (9.4-12.4) fL Absolute Nucleated RBC 0.000 (0.0-0.012) X10*3/uL Nucleated RBC % (auto) 0.0 (0.0-0.2) /100WBC Sodium 140 (135-145) mmol/L Potassium 4.1 (3.3-5.1) mmol/L Chloride 107 (96-108) mmol/L Carbon Dioxide 25 (22-29) mmol/L Anion Gap 12 (12-20) BUN 21 H (9-16) mg/dL Creatinine 0.83 (0.5-1.4) mg/dL Estim Creat Clear Calc 117.1 Estimated GFR > 60 Random Glucose 141 H (60-115) mg/dL Calcium 9.8 (8.4-10.2) mg/dL Total Bilirubin 0.3 (0.0-1.0) mg/dL AST 15 (5-37) U/L ALT 22 (0-40) U/L Alkaline Phosphatase 123 H (39-117) U/L Total Protein 7.4 (6.5-8.0) g/dL Albumin 4.0 (3.5-5.0) g/dL Lipase 25 (8-78) U/L Urine Color Yellow Urine Appearance Cloudy Urine pH 6.0 (5.0-9.0) Ur Specific [place] 1.025 (1.005-1.025) Urine Protein 300 (3+) H (Neg-Trace) mg/dL Urine Glucose (UA) Negative (Negative) mg/dL Urine Ketones Negative (Negative) mg/dL Urine Blood Trace H (Negative) Urine Nitrite Negative (Negative) Ur Leukocyte Esterase Moderate (2+) H (Negative) Urine RBC 3-5 H (0-2) /HPF Urine WBC >50 H (0-5) /HPF Urine WBC Clumps Ur Squamous Epith Cells 0-2 (0-2) /HPF Ur Transition Epith Cell Ur Renal Epithelial Cell Calcium Oxalate Crystal Leucine Crystals Cystine Crystals Tyrosine Crystals Other Crystals Urine Bacteria None Seen (None Seen) Urine Parasites Bilirubin Casts Epithelial Casts Fatty Casts Hyaline Casts 3-5 (0-2) /LPF Granular Casts Waxy Casts Broad Casts RBC Casts WBC Casts Other Casts Urine Trichomonas Urine Yeast 11/26/22 Range/Units 03:54 WBC (4.8-10.8) X10*3/uL RBC (4.60-5.80) X10*6/uL Hgb (14.0-18.0) g/dl Hct (42.0-52.0) % MCV (80.0-98.0) fL MCH (27.0-33.0) pg MCHC (31.0-36.0) g/dl RDW (11.0-16.0) % Plt Count (160-400) X10*3/uL MPV (9.4-12.4) fL Absolute Nucleated RBC (0.0-0.012) X10*3/uL Nucleated RBC % (auto) (0.0-0.2) /100WBC Sodium (135-145) mmol/L Potassium (3.3-5.1) mmol/L Chloride (96-108) mmol/L Carbon Dioxide (22-29) mmol/L Anion Gap (12-20) BUN (9-16) mg/dL Creatinine (0.5-1.4) mg/dL Estim Creat Clear Calc Estimated GFR Random Glucose (60-115) mg/dL Calcium (8.4-10.2) mg/dL Total Bilirubin (0.0-1.0) mg/dL AST (5-37) U/L ALT (0-40) U/L Alkaline Phosphatase (39-117) U/L Total Protein (6.5-8.0) g/dL Albumin (3.5-5.0) g/dL Lipase (8-78) U/L Urine Color Cancelled Urine Appearance Cancelled Urine pH Cancelled (5.0-9.0) Ur Specific [place] Cancelled (1.005-1.025) Urine Protein Cancelled (Neg-Trace) mg/dL Urine Glucose (UA) Cancelled (Negative) mg/dL Urine Ketones Cancelled (Negative) mg/dL Urine Blood Cancelled (Negative) Urine Nitrite Cancelled (Negative) Ur Leukocyte Esterase Cancelled (Negative) Urine RBC Cancelled (0-2) /HPF Urine WBC Cancelled (0-5) /HPF Urine WBC Clumps Cancelled Ur Squamous Epith Cells Cancelled (0-2) /HPF Ur Transition Epith Cell Cancelled Ur Renal Epithelial Cell Cancelled Calcium Oxalate Crystal Cancelled Leucine Crystals Cancelled Cystine Crystals Cancelled Tyrosine Crystals Cancelled Other Crystals Cancelled Urine Bacteria Cancelled (None Seen) Urine Parasites Cancelled Bilirubin Casts Cancelled Epithelial Casts Cancelled Fatty Casts Cancelled Hyaline Casts Cancelled (0-2) /LPF Granular Casts Cancelled Waxy Casts Cancelled Broad Casts Cancelled RBC Casts Cancelled WBC Casts Cancelled Other Casts Cancelled Urine Trichomonas Cancelled Urine Yeast Cancelled Independent Interpretation I performed an independent interpretation of an: CT Scan Radiology Impression Discussion of test interpretation with radiology: I have reviewed the radiologist's reading. Radiologist Impression: FINDINGS: LUNG BASES: The visualized lung bases are unremarkable.? LIVER, GALLBLADDER, AND BILIARY TREE: The liver is normal in size, shape, and attenuation. No focal hepatic lesion or biliary ductal dilatation is present. Multiple gallstones are noted within a nondistended gallbladder.? PANCREAS: Unremarkable.? SPLEEN: Unremarkable.? ADRENAL GLANDS: There is bilateral adrenal gland thickening and nodularity.? KIDNEYS AND URETERS: Scattered bilateral renal calculi are noted measuring up to 7 mm. There are areas of scarring upper pole left kidney and midpole right kidney associated with parenchymal calcifications. There is no hydronephrosis.? BLADDER: Unremarkable.? GASTROINTESTINAL TRACT: There are diverticula of the descending and sigmoid colon without diverticulitis. The appendix is visualized and is within normal limits. ABDOMINAL WALL: No significant hernia is appreciated.? LYMPH NODES: Normal. VASCULAR: Unremarkable. PELVIC VISCERA: The prostate gland is enlarged measuring 6.1 x 5 x 6.5 cm.? OSSEOUS STRUCTURES: There is diffuse [id number] thoracolumbar disc degenerative change. CT/CT abdomen pelvis wo IV con IMPRESSION: ? 1. Bilateral nonobstructing renal calculi. ? 2. Descending and sigmoid colon diverticulosis without diverticulitis. ? 3. Cholelithiasis. ? 4. Prostate gland hypertrophy. ? Fleischner guidelines were followed. Critical Care Time Critical Care Time Critical Care Time: Yes Total Critical Care Time: 60 Attestation: I have personally provided critical care time. Time includes review of lab data, radiology results, discussion with consultants, and monitoring for potential decompensation. Intervention performed as documented. Discharge Plan Discharge Clinical Impression: Pyelonephritis Patient Disposition: Home, Self-Care Instructions: Kidney Infection (ED) Additional Instructions: Please follow-up with your primary care physician tomorrow. If you have any worsening or new symptoms, please return to the emergency room or call 911 Prescriptions: New levofloxacin 500 mg tablet 500 mg PO DAILY Qty: 9 0RF No Action cyanocobalamin (vitamin B-12) 1,000 mcg capsule 1,000 mcg PO DAILY Qty: 90 1RF atorvastatin 40 mg tablet 40 mg PO DAILY Qty: 90 2RF amlodipine 10 mg tablet 10 mg PO DAILY 90 Days Qty: 90 1RF lisinopril 40 mg tablet 40 mg PO DAILY Qty: 90 2RF Stand Alone Forms: Work/School Release
[2022-11-26 02:25] VITALS: BP 132/69; PULSE 86; RESP 18; TEMP 37.1; O2SAT 95
[2022-11-26] MEDS: Ketorolac Tromethamine 60 MG/2 ML VIAL IM (02:28)
[2022-11-26 03:51] VITALS: BP 142/73; PULSE 78; RESP 16; TEMP 36.7; O2SAT 98
--- NOTE | 2022-11-26 03:55 | MHC.EDTECH ---
this pct assumed care of pt at 0300 ,0400 rounding done ,vitals sign taken and urine sample collected and sent to lab .
[2022-11-26 04:05] LABS: Appearance Urine Cloudy; Color Urine Yellow; Glucose Urine UA Negative (Negative); Leukocyte Esterase Urine Moderate (2+) (Negative); Nitrite Urine Negative (Negative); Specific Gravity - Urine 1.025 (1.005-1.025); UMIC TRIGGER UACC YES; Urine Blood Trace (Negative); Urine Ketones Negative (Negative); Urine Protein 300 (3+) mg/dL (Neg-Trace)
[2022-11-26 04:07] LABS: Bacteria Urine None Seen (None Seen); Squamous Epithelial Cell Urine 0-2 /HPF (0-2); UACC Culture Trigger YES; WBC Urine >50 /HPF (0-5)
[2022-11-26 06:27] VITALS: BP 121/59; PULSE 69; RESP 16; TEMP 37.2; O2SAT 97
[2022-11-26] MEDS: levoFLOXacin 500 MG TABLET PO (07:14)
== END 2022-11-26 07:16 | disposition home or self-care (01) ==
PROVIDERS: Emergency Provider Emergency Medicine; PCP Internal Medicine
DX: N12 Tubulo-interstitial nephritis, not specified as acute or chronic (principal); Z79.899 Other long term (current) drug therapy; Z87.442 Personal history of urinary calculi
CPT/HCPCS: 36415; 74176; 80053; 81001; 83690; 85027; 87086; 96372; 99284; J1885

== ENCOUNTER 2023-01-16 15:51 | Outpatient (AMB) | payer OTHER, SELFPAY ==
--- NOTE | 2023-01-16 15:53 | A.OFFPC_ITS ---
Vital Signs 01/16/23 15:54 Height 5 ft 9 in Weight 245 lb 2 oz BMI 36.2 BP 150/84 H Blood Pressure Location Lt brachial Position Sitting Pulse 61 Pulse Source Pulse Oximeter Pulse Oximetry (%) 97 Oxygen Delivery Method Room Air Intake Visit Reasons: Annual exam Intake Note: Patient is here today for a physical. 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 Services Required: No Intelligence Senior Sergeant: Not Required per policy Accompanied by: Self / Same As Patient Allergies codeine Allergy (Unknown, Verified 01/16/23 15:54) nausea and vomitting Medication List - Last Reconciled 01/16/23 by Nicki Haddad MD amlodipine 10 mg PO DAILY 90 days atorvastatin 40 mg PO DAILY lisinopril 40 mg PO DAILY Tobacco use date assessed: 01/16/23 Dental Screening Dental Screen Date: 01/16/23 Did you have a dental visit in the last 12 months?: Yes Did you have a dental problem in the last 6 months where you did not have access to dental care?: No Was dental information given to patient?: Patient has dentist HPI Annual exam HPI Details 57-year-old obese male with controlled d iabetes mellitus hypercholesterolemia BPH GERD hypertension last seen in October 2022 patient was reminded about colon cancer screening. Patient also has history of cholelithiasis and nephrolithiasis. October 2022 ER visit for intermittent left flank pain patient was treated for pyelonephritis.(CT scan revealed scattered bilateral renal calculi measuring to 7 mm. Patient since TURP has incontinence and on diapers seeing Dr. Vergara. [facility] Medical History (Updated 01/16/23 @ 16:30 by Nicki Haddad MD) Closed fracture of right distal fibula History of renal calculi Gout Diabetic nephropathy Chronic kidney disease (CKD) stage G1/A1, glomerular filtration rate (GFR) equal to or greater than 90 mL/min/1.73 square meter and albuminuria creatinine ratio less than 30 mg/g Obesity (BMI 30-39.9) Type 2 diabetes mellitus with hyperglycemia Hypercholesterolemia BPH (benign prostatic hyperplasia) GERD (gastroesophageal reflux disease) Hypertension Vitamin D deficiency Surgical History (Updated 01/16/23 @ 15:59 by MAITE Mark) History of prostate surgery S/P TURP Family History (Updated 01/16/23 @ 15:54 by MAITE Mark) Father Bladder cancer Mother Breast cancer Maternal Uncle Myocardial infarction Brother Alzheimers disease Other Mental health disorder Social History (Updated 01/16/23 @ 16:15 by Nicki Haddad MD) Housing: Condominium Alcohol intake: current Patient Tobacco Use Status: Never used Tobacco e-Cigarette/Vaping Use: Never Used Second Hand Smoke Exposure: No service: No Current occupational status: employed Current occupational exposures/hazards: No Cognitive needs: No Hearing needs: Yes (hearing aids) Vision needs: Yes (glasses ) Questionnaire Thrive Questionnaire Date Thrive assessed: 07/12/22 KRYSTAL-7 AMB Questionnaire KRYSTAL-7 Date KRYSTAL - 7 assessed: 07/12/22 Source: Developed by Drs. Pedro Markham, Yani Rivas, Krunal Green and colleagues, with an educational yunier from [employer]. Review of Systems Const Denies poor appetite and Denies weakness Eyes Denies no additional complaints ENT Reports Normal hearing present, Denies dizziness, Denies nasal congestion, Denies tinnitus and Denies sore throat Card Denies chest pain, Denies syncope, Denies rapid heart rate and Denies dyspnea Resp Denies cough and Denies dyspnea GI Denies change in stool character, Reports constipation, Denies diarrhea, Denies nausea and Denies vomiting Denies dysuria and Denies urinary frequency Neuro Reports Normal hearing present, Denies confusion, Denies dizziness, Denies syncope and Denies weakness Psych Denies confusion Physical exam (Primary Care) Vital Signs: Last Vital Signs Pulse 61 01/16/23 15:54 BP 150/84 H 01/16/23 15:54 Pulse Ox 97 01/16/23 15:54 Oxygen Delivery Method Room Air 01/16/23 15:54 BMI result Body Mass Index 36.2 Tobacco/Smoking Status: Tobacco use Status Tobacco use date assessed 01/16/23 01/16/23 16:01 Patient Tobacco Use Status Never used Tobacco 01/16/23 16:01 Tobacco use type 09/26/20 13:51 e-Cigarette/Vaping Use Never Used 01/16/23 16:01 Thrive Assessment: Date of Thrive Assessment Date Thrive assessed 07/12/22 01/16/23 16:01 Const General: alert and awake; No confusion Orientation/consciousness: No confusion HENMT Head: Yes normocephalic Ears: external ears normal and TM's normal bilaterally Face and sinus: Yes normal facial exam Mouth: moist mucous membranes Throat: Yes tonsils normal Eyes Conjunctivae: conjunctivae normal Pupils: Equal, round and reactive pupils present and Pupil accommodation reflex normal Direct Ophthalmoscopy: normal light reflex Neck Neck: No lymphadenopathy Thyroid: Thyroid normal Chest Chest palpation & inspection: normal inspection of the chest Resp Effort & Inspection: normal respiratory effort and no audible wheezes Auscultation: clear to auscultation bilaterally, no crackles, no wheezes and lung sounds not diminished Cardio Rate: regular rate Rhythm: regular rhythm Peripheral pulses: radial pulses present and dorsalis pedis present GI Palpation (GI): no masses Auscultation: normal bowel sounds and normoactive bowel sounds Rectal Exam - Male: Yes deferred Skin General skin exam: no rashes or lesions noted Rashes: no rashes Neuro General: deep tendon reflexes 2+ bilaterally and No confusion Cranial nerves: Yes Equal, round and reactive pupils present, Yes Midline tongue present, Yes Normal hearing present and Yes Ability to bilaterally elevate shoulders present Cognition (Neuro): normal cognition Gait exam (Neuro): Normal gait present Motor exam (neuro): 5/5 motor strength present throughout Deep tendon reflexes (DTR's): Right brachioradialis reflex intensity grade: 2+, Left brachioradialis reflex intensity grade: 2+, Right patellar reflex intensity grade: 2+ and Left patellar reflex intensity grade: 2+ Extrem General: No edema Assessment and Plan Assessment & Plan (1) Annual physical exam: Code(s): Z00.00 - Encounter for general adult medical examination without abnormal findings (2) Obesity (BMI 30-39.9): Code(s): E66.9 - Obesity, unspecified Plan: Diet and exercise (3) Type 2 diabetes mellitus with hyperglycemia: Comment: Dr. 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 Hemoglobin A1c goal of less than 6.5. Patient is diet controlled (4) Hypercholesterolemia: Code(s): E78.00 - Pure hypercholesterolemia, unspecified Plan: Avoid fried foods, chicken skin, eggs, butter margarine, pastries and meat. Be it pork or beef they have a lot of cholesterol LDL goal of less than 100 and triglyceride of less than 150. June 2022 last blood work continue with atorvastatin 40 (5) BPH (benign prostatic hyperplasia): Code(s): N40.0 - Benign prostatic hyperplasia without lower urinary tract symptoms Qualifiers: Lower urinary tract symptom presence: symptoms present Lower urinary tract symptom detail: urinary frequency Qualified Code(s): N40.1 - Benign prostatic hyperplasia with lower urinary tract symptoms; R35.0 - Frequency of micturition Plan: Stable (6) GERD (gastroesophageal reflux disease): Code(s): K21.9 - Gastro-esophageal reflux disease without esophagitis Qualifiers: Esophagitis presence: without esophagitis Qualified Code(s): K21.9 - Gastro-esophageal reflux disease without esophagitis Plan: Avoid the foods that causes that usually spicy foods, tomato products, juices, coffee, soda and foods that your sensitive to. After eating do not lie down, allow 3-4 hours before in lie down. And keep the head of bed above 30 degrees to avoid the acid from going up. (7) Hypertension: Code(s): I10 - Essential (primary) hypertension Qualifiers: Hypertension type: essential hypertension Qualified Code(s): I10 - Essential (primary) hypertension Plan: Continue with blood pressure medication. Decrease salt intake and exercise patient on lisinopril 40 mg once a day and amlodipine 10 mg once a day (8) Cholelithiasis: Code(s): K80.20 - Calculus of gallbladder without cholecystitis without obstruction Plan: Low-fat diet (9) History of renal calculi: Comment: January 2016 Dr. Rousseau lithotripsy, Bilateral 10/2020, 10/2022 Code(s): Z87.442 - Personal history of urinary calculi Plan: Increase oral fluids (10) Urinary incontinence: Code(s): R32 - Unspecified urinary incontinence Plan: On diapers, post TURP, [facility] (11) Hypertension: Code(s): I10 - Essential (primary) hypertension Orders: Referrals Podiatry Referral E11.65 - Type 2 diabetes mellitus with hyperglycemia Medications: New metoprolol succinate ER 25 mg PO DAILY 30 tabs 4RF I10 - Essential (primary) hypertension Coding Level of Care Code Est Pt Prev Care 40-64y(96776) Diagnoses Annual physical exam Z00.00 Obesity (BMI 30-39.9) E66.9 Type 2 diabetes mellitus with hyperglycemia, without long-term current use of insulin E11.65 Diabetes mellitus longterm insulin use: without longterm use Hypercholesterolemia E78.00 Benign prostatic hyperplasia with urinary frequency N40.1; R35.0 Lower urinary tract symptom presence: symptoms present Lower urinary tract symptom detail: urinary frequency Gastroesophageal reflux disease without esophagitis K21.9 Esophagitis presence: without esophagitis Essential hypertension I10 Hypertension type: essential hypertension Cholelithiasis K80.20 History of renal calculi Z87.442 Urinary incontinence R32
[2023-01-16 15:54] VITALS: BP 150/84; PULSE 61; O2SAT 97; BMI 36.2
== END 2023-01-16 16:43 | disposition home or self-care (01) ==
PROVIDERS: Visit Provider Internal Medicine
DX: Z00.00 Encounter for general adult medical examination without abnormal findings (principal); E66.9 Obesity, unspecified; E11.65 Type 2 diabetes mellitus with hyperglycemia; E78.00 Pure hypercholesterolemia, unspecified; N40.1 Benign prostatic hyperplasia with lower urinary tract symptoms; R35.0 Frequency of micturition; K21.9 Gastro-esophageal reflux disease without esophagitis; I10 Essential (primary) hypertension; K80.20 Calculus of gallbladder without cholecystitis without obstruction; Z87.442 Personal history of urinary calculi; R32 Unspecified urinary incontinence; Z68.36 Body mass index [BMI] 36.0-36.9, adult
CPT/HCPCS: 99396

== ENCOUNTER 2023-01-28 15:08 | Outpatient (REF) | payer SELFPAY | END 2023-01-28 15:09 | disposition home or self-care (01) | LOC: HO.HAP 15:08 | PROVIDERS: Visit Provider Internal Medicine | DX: Z46.1 Encounter for fitting and adjustment of hearing aid (principal); H90.3 Sensorineural hearing loss, bilateral | CPT/HCPCS: 92593 ==

== ENCOUNTER 2023-04-14 15:49 | Outpatient (AMB) | payer OTHER, SELFPAY ==
[2023-04-14 15:52] VITALS: BP 146/74; PULSE 89; O2SAT 95; BMI 36.8
--- NOTE | 2023-04-14 15:52 | MHC.PC.OV ---
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 Last seen for physical exam December 2022. Patient's Cologuard is negative up-to-date October 2022 [facility] Medical History (Updated 01/16/23 @ 16:30 by Nicki Haddad MD) Closed fracture of right distal fibula History of renal calculi Gout Diabetic nephropathy Chronic kidney disease (CKD) stage G1/A1, glomerular filtration rate (GFR) equal to or greater than 90 mL/min/1.73 square meter and albuminuria creatinine ratio less than 30 mg/g Obesity (BMI 30-39.9) Type 2 diabetes mellitus with hyperglycemia Hypercholesterolemia BPH (benign prostatic hyperplasia) GERD (gastroesophageal reflux disease) Hypertension Vitamin D deficiency Surgical History (Updated 01/16/23 @ 15:59 by MAITE Mark) History of prostate surgery S/P TURP Family History (Updated 01/16/23 @ 15:54 by MAITE Mark) Father Bladder cancer Mother Breast cancer Maternal Uncle Myocardial infarction Brother Alzheimers disease Other Mental health disorder Social History (Updated 01/16/23 @ 16:15 by Nicki Haddad MD) Housing: Condominium Alcohol intake: current Patient Tobacco Use Status: Never used Tobacco e-Cigarette/Vaping Use: Never Used Second Hand Smoke Exposure: No service: No Current occupational status: employed Current occupational exposures/hazards: No Cognitive needs: No Hearing needs: Yes (hearing aids) Vision needs: Yes (glasses ) Questionnaire PHQ-9 Over the last 2 weeks, how often have you been bothered by any of the following problems? 1. Little interest or pleasure in doing things: not at all 2. Feeling down, depressed, or hopeless: not at all 3. Trouble falling or staying asleep, or sleeping too much: not at all 4. Feeling tired or having little energy: not at all 5. Poor appetite or overeating: not at all 6. Feeling bad about yourself - or that you are a failure or have let yourself or your family down: not at all 7. Trouble concentrating on things, such as reading the newspaper or watching television: not at all 8. Moving or speaking so slowly that other people could have noticed. Or the opposite - being so fidgety or restless that you have been moving around a lot more than usual: not at all 9. Thoughts that you would be better off or of hurting yourself in some way: not at all Total score: 0 Depression Screening Interpretation: Negative Depression Screening Done: Yes Source: Developed by Drs. Pedro Markham, Yani Rivas, Krunal Green and colleagues, with an educational yunier from [employer]. Thrive Questionnaire Date Thrive assessed: 07/12/22 AUDIT C Alcohol Use Questionnaire (AUDIT-C) 1. How often do you have a drink containing alcohol?: Never 2. How many drinks containing alcohol do you have on a typical day when you are drinking?: 1 or 2 (0) 3. How often do you have six or more drinks on one occasion?: Never Total Score: 0 Score Reviewed/Action Taken: No KRYSTAL-7 AMB Questionnaire KRYSTAL-7 Date KRYSTAL - 7 assessed: 04/14/23 Source: Developed by Drs. Pedro Markham, Yani Rivas, Krunal Green and colleagues, with an educational yunier from [employer]. Physical exam (Primary Care) Vital Signs: Last Vital Signs Pulse 89 04/14/23 15:52 BP 146/74 H 04/14/23 15:52 Pulse Ox 95 04/14/23 15:52 Oxygen Delivery Method Room Air 04/14/23 15:52 BMI result Body Mass Index 36.8 Tobacco/Smoking Status: Tobacco use Status Tobacco use date assessed 04/14/23 04/14/23 15:53 Patient Tobacco Use Status Never used Tobacco 04/14/23 15:53 Tobacco use type 09/26/20 13:51 e-Cigarette/Vaping Use Never Used 04/14/23 15:53 PHQ-9: PHQ-9 Score PHQ-9: Total score 0 04/14/23 15:53 Depression Screening Interpretation: Negative Thrive Assessment: Date of Thrive Assessment Date Thrive assessed 07/12/22 04/14/23 15:53 Const General: alert; No acute distress Eyes Conjunctivae: conjunctivae normal Resp Auscultation: clear to auscultation bilaterally Cardio Rate: regular rate Rhythm: regular rhythm GI Inspection: Yes normal to inspection Extrem General: Yes normal to inspection and No edema Results AMB Hemoglobin A1c AMB Hemoglobin A1c 6.3 % Last Edit by MAITE Navarro on 04/14/23 16:07 Results Reviewed Results Reviewed: Laboratory Last Values Hgb A1c (Clinic) 6.3 % (4.0-6.0) H 04/14/23 15:27 Assessment and Plan Assessment & Plan (1) Type 2 diabetes mellitus with hyperglycemia: Comment: Dr. 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 Hemoglobin A1c goal of less than 6.5. Patient on diet control (2) Hypercholesterolemia: Code(s): E78.00 - Pure hypercholesterolemia, unspecified Plan: Avoid fried foods, chicken skin, eggs, butter margarine, pastries and meat. Be it pork or beef they have a lot of cholesterol LDL goal of less than 100 and triglyceride of less than 150 on atorvastatin 40 mg once a day (3) BPH (benign prostatic hyperplasia): Code(s): N40.0 - Benign prostatic hyperplasia without lower urinary tract symptoms Qualifiers: Lower urinary tract symptom presence: symptoms present Lower urinary tract symptom detail: urinary frequency Qualified Code(s): N40.1 - Benign prostatic hyperplasia with lower urinary tract symptoms; R35.0 - Frequency of micturition Plan: Stable (4) GERD (gastroesophageal reflux disease): Code(s): K21.9 - Gastro-esophageal reflux disease without esophagitis Qualifiers: Esophagitis presence: without esophagitis Qualified Code(s): K21.9 - Gastro-esophageal reflux disease without esophagitis Plan: Avoid the foods that causes that usually spicy foods, tomato products, juices, coffee, soda and foods that your sensitive to. After eating do not lie down, allow 3-4 hours before in lie down. And keep the head of bed above 30 degrees to avoid the acid from going up. (5) Obesity (BMI 30-39.9): Code(s): E66.9 - Obesity, unspecified Plan: Diet and exercise (6) Hypertension: Code(s): I10 - Essential (primary) hypertension Plan: Continue with blood pressure medication. Decrease salt intake and exercise presently on lisinopril 40 and amlodipine 10 Orders: Orders Complete Blood Count Auto Diff 3 Months E11.65 - Type 2 diabetes mellitus with hyperglycemia Thyroid Stimulating Hormone 3 Months E11.65 - Type 2 diabetes mellitus with hyperglycemia Hemoglobin A1c 3 Months E11.65 - Type 2 diabetes mellitus with hyperglycemia Creatinine Urine 3 Months E11.65 - Type 2 diabetes mellitus with hyperglycemia AMB Hemoglobin A1c Today E11.65 - Type 2 diabetes mellitus with hyperglycemia Comprehensive Met. Panel 3 Months E11.65 - Type 2 diabetes mellitus with hyperglycemia Free T4 (Free Thyroxine) 3 Months E11.65 - Type 2 diabetes mellitus with hyperglycemia Vitamin B12 and Folate 3 Months E11.65 - Type 2 diabetes mellitus with hyperglycemia Prostate Specific Antigen Scr 3 Months E11.65 - Type 2 diabetes mellitus with hyperglycemia Microalbumin, Random (w Creat) 3 Months E11.65 - Type 2 diabetes mellitus with hyperglycemia Lipid Panel 3 Months E11.65 - Type 2 diabetes mellitus with hyperglycemia, E78.00 - Pure hypercholesterolemia, unspecified Medications: New hydrochlorothiazide 12.5 mg PO DAILY 30 tabs 3RF I10 - Essential (primary) hypertension Coding Level of Care Code Est Pt Level 4 (45612) Diagnoses Type 2 diabetes mellitus with hyperglycemia, without long-term current use of insulin E11.65 Diabetes mellitus prison insulin use: without 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
== END 2023-04-14 16:53 | disposition home or self-care (01) ==
PROVIDERS: PCP Internal Medicine; Visit Provider Internal Medicine
DX: E11.65 Type 2 diabetes mellitus with hyperglycemia (principal); E66.9 Obesity, unspecified; E78.00 Pure hypercholesterolemia, unspecified; Z68.36 Body mass index [BMI] 36.0-36.9, adult; N40.1 Benign prostatic hyperplasia with lower urinary tract symptoms; R35.0 Frequency of micturition; K21.9 Gastro-esophageal reflux disease without esophagitis; I10 Essential (primary) hypertension
CPT/HCPCS: 83036; 99214

== ENCOUNTER 2023-07-12 08:21 | Outpatient (REF) | payer OTHER, SELFPAY ==
[2023-07-12 08:34] LABS: MANUAL DIFF FLAG NO
[2023-07-12 08:53] LABS: Basophils Absolute Auto 0.1 X10*3/uL (0.0-0.2); Basophils Percent Auto 0.8 % (0-2); Eosinophils Absolute Auto 0.2 X10*3/uL (0.0-0.4); Eosinophils Percent Auto 2.6 % (0-4); Hematocrit 46.4 % (42.0-52.0); Hemoglobin 15.1 g/dl (14.0-18.0); Imm Gran Abs Auto 0.03 X10*3/uL (0.00-0.03); Imm Gran Pct Auto 0.4 % (0.0-0.4); Lymphocytes Absolute Auto 1.6 X10*3/uL (1.2-4.9); Lymphocytes Percent Auto 20.7 % (20-40); Mean Corpuscular HGB Conc 32.5 g/dl (31.0-36.0); Mean Corpuscular Hemoglobin 26.7 pg (27.0-33.0); Mean Platelet Volume 10.3 fL (9.4-12.4); Monocytes Absolute Auto 0.5 X10*3/uL (0.1-1.2); Monocytes Percent Auto 6.4 % (2-11); Neutrophils Absolute Auto 5.3 x10*3/uL (2.0-8.3); Neutrophils Percent Auto 69.1 % (45-73); Platelet Count 308 X10*3/uL (160-400); Red Blood Count 5.66 X10*6/uL (4.60-5.80); Red Cell Distribution Width 13.8 % (11.0-16.0); White Blood Count 7.7 X10*3/uL (4.8-10.8)
[2023-07-12 09:33] LABS: Estimated Average Glucose 140 mg/dL; Hemoglobin A1c % 6.5 % (<6.0)
[2023-07-12 09:36] LABS: Creatinine Urine 146.54 mg/dL
[2023-07-12 09:38] LABS: Alanine Aminotransferase 29 U/L (0-40); Albumin Level 4.1 g/dL (3.5-5.0); Alkaline Phosphatase 143 U/L (39-117); Anion Gap 12 (12-20); Aspartate Amino Transferase 15 U/L (5-37); Bilirubin Total 0.3 mg/dL (0.0-1.0); Blood Urea Nitrogen 14 mg/dL (9-16); Calcium 9.6 mg/dL (8.4-10.2); Carbon Dioxide 27 mmol/L (22-29); Chloride 104 mmol/L (96-108); Cholesterol 165 mg/dL (<200); Estimated Glomerular Filt Rate > 60; Glucose Random 134 mg/dL (60-115); HDL Cholesterol 43 mg/dL (>40); LDL Cholesterol Calculated 102 mg/dL (<100); Potassium 4.7 mmol/L (3.3-5.1); Sodium 138 mmol/L (135-145); Total Protein 7.6 g/dL (6.5-8.0); Triglycerides 100 mg/dL (<150)
[2023-07-12 09:48] LABS: Microalbum/Creatinine Ratio Ur 1190.1 ug/mg cr (<30)
[2023-07-12 09:58] LABS: Free T4 (Free Thyroxine) 0.98 ng/dL (0.71-1.85); Thyroid Stimulating Hormone 1.35 uIU/mL (0.32-4.0)
[2023-07-12 10:35] LABS: Folate 5.7 ng/mL (> or = 4.0); Prostate Specific Antigen Scr 4.08 ng/mL (<0.05-4.0); Vitamin B12 482 pg/mL (200-900)
== END 2023-07-12 08:22 | disposition home or self-care (01) ==
LOC: HO.LAB 08:21
PROVIDERS: PCP Internal Medicine; Visit Provider Internal Medicine
DX: Z12.5 Encounter for screening for malignant neoplasm of prostate (principal); E11.65 Type 2 diabetes mellitus with hyperglycemia; E78.00 Pure hypercholesterolemia, unspecified
CPT/HCPCS: 36415; 80053; 80061; 82043; 82570; 82607; 82746; 83036; 84153; 84439; 84443; 85025

== ENCOUNTER 2023-07-25 14:59 | Outpatient (REF) | payer SELFPAY | END 2023-07-25 15:00 | disposition home or self-care (01) | LOC: HO.HAP 14:59 | PROVIDERS: Visit Provider Internal Medicine | DX: Z46.1 Encounter for fitting and adjustment of hearing aid (principal); H90.3 Sensorineural hearing loss, bilateral | CPT/HCPCS: 92593 ==

== ENCOUNTER 2023-08-07 15:44 | Outpatient (AMB) | payer OTHER, SELFPAY ==
--- NOTE | 2023-08-07 15:46 | A.OFFPC_ITS ---
Vital Signs 08/07/23 15:48 08/07/23 16:31 Height 5 ft 9 in Weight 253 lb 6 oz BMI 37.4 BP 142/74 H 140/70 H Blood Pressure Location Lt brachial Lt brachial Position Sitting Sitting Pulse 88 Pulse Source Pulse Oximeter Pulse Oximetry (%) 97 Oxygen Delivery Method Room Air Intake Visit Reasons: DM Dress Cap Maker Required: No Accompanied by: Self / Same As Patient Allergies codeine Allergy (Unknown, Verified 08/07/23 15:58) nausea and vomitting Medication List - Last Reconciled 08/07/23 by Nicki Haddad MD amlodipine 10 mg PO DAILY 90 days atorvastatin 40 mg PO DAILY hydrochlorothiazide 12.5 mg PO DAILY lisinopril 40 mg PO DAILY metoprolol succinate ER 25 mg PO DAILY Tobacco use date assessed: 04/14/23 Dental Screening Dental Screen Date: 08/07/23 Did you have a dental visit in the last 12 months?: Yes Did you have a dental problem in the last 6 months where you did not have access to dental care?: No Was dental information given to patient?: Patient has dentist HPI DM HPI Details 58-year-old obese male with controlled d iabetes mellitus hypercholesterolemia BPH GERD hypertension last seen in March 2023. Patient is Cologuard test was negative in October 2022. [facility] Medical History (Updated 01/16/23 @ 16:30 by Nicki Haddad MD) Closed fracture of right distal fibula History of renal calculi Gout Diabetic nephropathy Chronic kidney disease (CKD) stage G1/A1, glomerular filtration rate (GFR) equal to or greater than 90 mL/min/1.73 square meter and albuminuria creatinine ratio less than 30 mg/g Obesity (BMI 30-39.9) Type 2 diabetes mellitus with hyperglycemia Hypercholesterolemia BPH (benign prostatic hyperplasia) GERD (gastroesophageal reflux disease) Hypertension Vitamin D deficiency Surgical History History of prostate surgery S/P TURP Family History Father Bladder cancer Mother Breast cancer Maternal Uncle Myocardial infarction Brother Alzheimers disease Other Mental health disorder Social History Housing: Condominium Alcohol intake: current Patient Tobacco Use Status: Never used Tobacco e-Cigarette/Vaping Use: Never Used Second Hand Smoke Exposure: No service: No Current occupational status: employed Current occupational exposures/hazards: No Cognitive needs: No Hearing needs: Yes (hearing aids) Vision needs: Yes (glasses ) Questionnaire Thrive Questionnaire Date Thrive assessed: 07/12/22 KRYSTAL-7 AMB Questionnaire KRYSTAL-7 Date KRYSTAL - 7 assessed: 04/14/23 Source: Developed by Drs. Pedro Markham, Yani Rivas, Krunal Green and colleagues, with an educational yunier from [employer]. Physical exam (Primary Care) Vital Signs: Last Vital Signs Pulse 88 08/07/23 15:48 BP 142/74 H 08/07/23 15:48 Pulse Ox 97 08/07/23 15:48 Oxygen Delivery Method Room Air 08/07/23 15:48 BMI result Body Mass Index 37.4 Tobacco/Smoking Status: Tobacco use Status Tobacco use date assessed 04/14/23 08/07/23 15:46 Patient Tobacco Use Status Never used Tobacco 08/07/23 15:46 Tobacco use type 09/26/20 13:51 e-Cigarette/Vaping Use Never Used 08/07/23 15:46 Thrive Assessment: Date of Thrive Assessment Date Thrive assessed 07/12/22 08/07/23 15:46 Const General: alert; No acute distress Eyes Conjunctivae: conjunctivae normal Resp Auscultation: clear to auscultation bilaterally Cardio Rate: regular rate Rhythm: regular rhythm GI Inspection: Yes normal to inspection Extrem General: Yes normal to inspection and No edema Assessment and Plan Assessment & Plan (1) Type 2 diabetes mellitus with hyperglycemia: Comment: Dr. Evans Code(s): E11.65 - Type 2 diabetes mellitus with hyperglycemia Qualifiers: Diabetes mellitus halfway insulin use: without terminal operations manager use Qualified Code(s): E11.65 - Type 2 diabetes mellitus with hyperglycemia Plan: Decrease the amount of carbohydrate intake, pasta, bread, rice and potatoes are all sugar and that is aside from all the sweet stuff, remember that fruits are good but they are Sweet also. Hemoglobin A1c goal of less than 6.5. Patient on diet control (2) Hypercholesterolemia: Code(s): E78.00 - Pure hypercholesterolemia, unspecified Plan: Avoid fried foods, chicken skin, eggs, butter margarine, pastries and meat. Be it pork or beef they have a lot of cholesterol LDL goal of less than 100 and triglyceride of less than 150 patient on atorvastatin 40 mg once a day LDL mildly high (3) BPH (benign prostatic hyperplasia): Code(s): N40.0 - Benign prostatic hyperplasia without lower urinary tract symptoms Qualifiers: Lower urinary tract symptom presence: symptoms present Lower urinary tract symptom detail: urinary frequency Qualified Code(s): N40.1 - Benign prostatic hyperplasia with lower urinary tract symptoms; R35.0 - Frequency of micturition Plan: Stable (4) GERD (gastroesophageal reflux disease): Code(s): K21.9 - Gastro-esophageal reflux disease without esophagitis Qualifiers: Esophagitis presence: without esophagitis Qualified Code(s): K21.9 - Gastro-esophageal reflux disease without esophagitis Plan: Avoid the foods that causes that usually spicy foods, tomato products, juices, coffee, soda and foods that your sensitive to. After eating do not lie down, allow 3-4 hours before in lie down. And keep the head of bed above 30 degrees to avoid the acid from going up. (5) Hypertension: Code(s): I10 - Essential (primary) hypertension Qualifiers: Hypertension type: essential hypertension Qualified Code(s): I10 - Essential (primary) hypertension Plan: Continue with blood pressure medication. Decrease salt intake and exercise presently on lisinopril 40 mg once a day metoprolol 25 mg once a day hydrochlorothiazide 12.5 mg once a day and amlodipine 10 mg once a day (6) Obesity (BMI 30-39.9): Code(s): E66.9 - Obesity, unspecified Plan: Diet and exercise (7) PSA elevation: Code(s): R97.20 - Elevated prostate specific antigen [PSA] Plan: Continue to monitor PSA Orders: Orders Lipid Panel 3 Months E78.00 - Pure hypercholesterolemia, unspecified Comprehensive Met. Panel 3 Months E78.00 - Pure hypercholesterolemia, unspecified Hemoglobin A1c 3 Months E78.00 - Pure hypercholesterolemia, unspecified Coding Level of Care Code Est Pt Level 4 (35278) Diagnoses Type 2 diabetes mellitus with hyperglycemia, without long-term current use of insulin E11.65 Diabetes mellitus halfway insulin use: without terminal operations manager use Hypercholesterolemia E78.00 Benign prostatic hyperplasia with urinary frequency N40.1; R35.0 Lower urinary tract symptom presence: symptoms present Lower urinary tract symptom detail: urinary frequency Gastroesophageal reflux disease without esophagitis K21.9 Esophagitis presence: without esophagitis Essential hypertension I10 Hypertension type: essential hypertension Obesity (BMI 30-39.9) E66.9 PSA elevation R97.20
[2023-08-07 15:48] VITALS: BP 142/74; PULSE 88; O2SAT 97; BMI 37.4
[2023-08-07 16:31] VITALS: BP 140/70
== END 2023-08-07 16:45 | disposition home or self-care (01) ==
PROVIDERS: PCP Internal Medicine; Visit Provider Internal Medicine
DX: E11.65 Type 2 diabetes mellitus with hyperglycemia (principal); Z68.37 Body mass index [BMI] 37.0-37.9, adult; E78.00 Pure hypercholesterolemia, unspecified; E66.9 Obesity, unspecified; N40.1 Benign prostatic hyperplasia with lower urinary tract symptoms; R35.0 Frequency of micturition; K21.9 Gastro-esophageal reflux disease without esophagitis; I10 Essential (primary) hypertension; R97.20 Elevated prostate specific antigen [PSA]
CPT/HCPCS: 99214

== ENCOUNTER 2023-08-20 15:59 | Outpatient (REF) | payer SELFPAY | END 2023-08-20 16:00 | disposition home or self-care (01) | LOC: HO.HAP 15:59 | PROVIDERS: Visit Provider Internal Medicine | DX: Z46.1 Encounter for fitting and adjustment of hearing aid (principal); H90.3 Sensorineural hearing loss, bilateral | CPT/HCPCS: 92593 ==

== ENCOUNTER 2023-09-22 15:09 | Outpatient (REF) | payer OTHER, SELFPAY | END 2023-09-22 15:10 | disposition home or self-care (01) | LOC: HO.SH 15:09 | PROVIDERS: Visit Provider Internal Medicine | DX: Z01.118 Encounter for examination of ears and hearing with other abnormal findings (principal); H90.3 Sensorineural hearing loss, bilateral | CPT/HCPCS: 92557 ==

== ENCOUNTER 2023-09-22 16:07 | Outpatient (REF) | payer SELFPAY ==
--- NOTE | 2023-09-23 09:43 | MHC.AU.HA1 ---
Hearing Aid Evaluation Date of Visit: 09/22/23 Historical Information: Description of Hearing: Moderately-severe to profound sensorineural hearing loss, bilaterally Current personal amplification information: Black Palomraes Q30-SP BTEs fit at [facility] Hearing Aids Summary: Chidi's right hearing aid is not working, currently using an [employer] loaner (see previous note). Left hearing aid now reportedly intermittent. Discussed options of repairing vs. replacing. Chidi is ready to pursue new hearing aids. Reportedly applied for [facility] but did not qualify. Still has financial concerns; however, does not want to look into pricing elsewhere. Opted to pursue new hearing aids here. Also wants new ear molds - requested soft silicone material in full shell style. Private level technology hearing aids. Hearing Aid Prescription: Based on the individual?s shared listening needs, communication environments, dexterity, desire for connectivity, and personal preferences, the following prescription for amplification has been made: Right ear: Make, Model, Color: Phonak Chante L30-UP Color: Silver Rodriguez Battery Size: 675 Type of Earmold/Dome/CShell/SlimTip: Microsonic M35 full shell Left ear: Left ear prescription to be same as Right Hearing Aid above: Make, Model, Color: Phonak Chante L30-UP Color: Silver Rodriguez Battery Size: 675 Type of Earmold/Dome/CShell/SlimTip: Microsonic M35 full shell Plan of Care: Patient wishes to purchase hearing aids as prescribed Action Taken/Action Needed: Hearing Instrument Fitting to be scheduled when materials arrive Primary Diagnosis: H90.3 Bilateral Sensorineural Hearing Loss Signature: Provider: Anastasiia Aparicio, [facility]
== END 2023-09-22 16:08 | disposition home or self-care (01) ==
LOC: HO.HAP 16:07
PROVIDERS: Visit Provider Internal Medicine
DX: Z46.1 Encounter for fitting and adjustment of hearing aid (principal); H90.3 Sensorineural hearing loss, bilateral
CPT/HCPCS: 92590

== ENCOUNTER 2023-10-31 14:52 | Outpatient (REF) | payer OTHER, SELFPAY ==
--- NOTE | 2023-10-31 15:49 | MHC.AU.HA2 ---
Hearing Instrument Fitting- Adult- Binaural Date of Visit: 10/31/23 Hearing Instruments Dispensed: Right Ear: Make, Model, Color, Serial Number: Black Sharif L30-UP SN: [id number] Color: Silver Rodriguez Hammer Adjuster Repair Warranty: 10/22/2026 Hammer Adjuster Loss and Damage Warranty: 10/22/2026 [facility] Service Plan: OPTED OUT Battery Size: 675 Earmold/Dome/CShell/SlimTip: Microsonic M35 full shell Left Ear: Make, Model, Color, Serial Number: Black Sharif L30-UP SN: [id number] Color: Silver Rodriguez Hammer Adjuster Repair Warranty: 10/22/2026 Hammer Adjuster Loss and Damage Warranty: 10/22/2026 [facility] Service Plan: OPTED OUT Battery Size: 675 Earmold/Dome/CShell/SlimTip: Microsonic M35 full shell Summary of Fitting: Returned loaner. Fit new hearing aids and ear molds. Ran feedback analyzer and real ear measures. SoundRecover turned on. Slightly loud at real ear settings but Chidi reported he will use VC as needed. Noted improvement in sound quality compared to old hearing aids. Reviewed care and use including cleaning, changing batteries, and VC use. As a long time hearing aid user, Chidi was otherwise familiar with general maintenance. Paired to cellphone but did not discuss [employer] lonnie at this time. Chidi is concerned about payments for hearing aids, reporting he is unsure he can afford them. App[employer] card machine not working today so he will be billed full amount. Advised to call billing department to discuss payment options further. Also discussed option to return hearing aids if finances are a concern and pursue other options (e.g., repairing old hearing aids or pursuing new hearing aids elsewhere, as previously discussed at HAE appointment). Recommendations: A hearing instrument follow-up was scheduled. Diagnosis Code(s): Primary Diagnosis: H90.3 Bilateral Sensorineural Hearing Loss Signature: Provider: Anastasiia Aparicio, [facility]
== END 2023-10-31 14:53 | disposition home or self-care (01) ==
LOC: HO.HAP 14:52
PROVIDERS: Visit Provider Internal Medicine
DX: Z46.1 Encounter for fitting and adjustment of hearing aid (principal); H90.3 Sensorineural hearing loss, bilateral
CPT/HCPCS: V5261; V5264

== ENCOUNTER 2023-11-28 14:59 | Outpatient (REF) | payer OTHER, SELFPAY ==
--- NOTE | 2023-12-03 10:47 | MHC.AU.HA3 ---
Hearing Instrument Follow-Up- Binaural Date of Visit: 11/28/23 Right Ear: Misbah, Model, Color, Serial Number: Black Sharif L30-UP SN: [id number] Color: Silver Rodriguez Fitness Sales Consultant Repair Warranty: 10/22/2026 Fitness Sales Consultant Loss and Damage Warranty: 10/22/2026 [facility] Service Plan: OPTED OUT Battery Size: 675 Stage Manager/Slim Tube: Earmold/Dome/CShell/SlimTip:Microsonic M35 full shell Type of Wax Guard: Dispensed By: [facility] Date of Fittin10/31/23 Left Ear: Misbah, Model, Color, Serial Number: Black Sharif L30-UP SN: [id number] Color: Silver Rodriguez Fitness Sales Consultant Repair Warranty: 10/22/2026 Fitness Sales Consultant Loss and Damage Warranty: 10/22/2026 [facility] Service Plan: OPTED OUT Battery Size: 675 Stage Manager/Slim Tube: Earmold/Dome/CShell/SlimTip: Microsonic M35 full shell Type of Wax Guard: Dispensed By: [facility] Date of Fittin10/31/23 Follow-Up Summary: Chidi reports his earmolds have been very painful and he has not been able to wear them outside of work. Otoscopy showed sores in both canals. Attempted to shave down earmold enough to be comfortable for Chidi to wear while we wait for a remake, though he still noted pain during insertion, likely because his canals appear quite irritated. Recommended bringing old earmolds in to use in interim, though Chidi did not seem to want to do that as they do not fit well anymore. Advised to leave out when possible to allow canals to heal. Chidi states he wants to go back to skeleton molds. Ordered remake through [employer], did not take new impressions as his canals are so irritated but requested significant taper on canals and to be made as skeletons. Chidi inquired about his balance, seemingly surprised that he was expected to pay the full amount of the hearing aids OR half down and contact the billing department for a payment plan despite [facility]'s note stating they discussed this prior to ordering, and he was only unable to make his payment at fitting because the department's credit card machine was down. Explained if he does have a benefit that his insurance will reimburse, he will likely need to submit a receipt of payment to them, and we cannot bill them directly. He states he has not yet received a bill from the hospital but will contact the billing department. He notes he is hoping to be reimbursed the $350 he paid at time of order, provided him with an itemized receipt and copy of his check. Will contact Chidi to return when new earmolds arrive in office. Recommendations: Recommendations: Patient will be contacted when materials have arrived. Diagnosis Code(s): Primary Diagnosis: H90.3 Bilateral Sensorineural Hearing Loss Signature: Provider: Chavo Flores, CCC-A
== END 2023-11-28 15:00 | disposition home or self-care (01) ==
LOC: HO.HAP 14:59
PROVIDERS: Visit Provider Internal Medicine
DX: Z13.89 Encounter for screening for other disorder (principal)

== ENCOUNTER 2023-12-26 15:02 | Outpatient (REF) | payer SELFPAY | END 2023-12-26 15:03 | disposition home or self-care (01) | LOC: HO.HAP 15:02 | PROVIDERS: Visit Provider Internal Medicine | DX: Z13.89 Encounter for screening for other disorder (principal) ==

== ENCOUNTER 2023-12-27 08:27 | Outpatient (REF) | payer OTHER, SELFPAY ==
[2023-12-27 09:44] LABS: Estimated Average Glucose 140 mg/dL; Hemoglobin A1c % 6.5 % (<6.0); Total Hemoglobin (HGBA1C) 3656.3634 umol/L
[2023-12-27 10:16] LABS: Alanine Aminotransferase 24 U/L (0-40); Albumin Level 3.8 g/dL (3.5-5.0); Alkaline Phosphatase 114 U/L (39-117); Anion Gap 9 (12-20); Aspartate Amino Transferase 15 U/L (5-37); Bilirubin Total 0.4 mg/dL (0.0-1.0); Blood Urea Nitrogen 10 mg/dL (9-16); Calcium 9.5 mg/dL (8.4-10.2); Carbon Dioxide 29 mmol/L (22-29); Chloride 106 mmol/L (96-108); Cholesterol 169 mg/dL (<200); Estimated Glomerular Filt Rate > 60; Glucose Random 126 mg/dL (60-115); HDL Cholesterol 38 mg/dL (>40); LDL Cholesterol Calculated 96 mg/dL (<100); Potassium 4.2 mmol/L (3.3-5.1); Sodium 140 mmol/L (135-145); Total Protein 7.1 g/dL (6.5-8.0); Triglycerides 179 mg/dL (<150)
[2023-12-27 10:41] LABS: Creatinine Urine 165.69 mg/dL
== END 2023-12-27 08:28 | disposition home or self-care (01) ==
LOC: HO.LAB 08:27
PROVIDERS: PCP Internal Medicine; Visit Provider Internal Medicine
DX: E78.00 Pure hypercholesterolemia, unspecified (principal); E11.65 Type 2 diabetes mellitus with hyperglycemia
CPT/HCPCS: 36415; 80053; 80061; 82570; 83036

== ENCOUNTER 2023-12-29 15:59 | Outpatient (AMB) | payer OTHER, SELFPAY ==
[2023-12-29 16:03] VITALS: BP 146/70; PULSE 91; O2SAT 98; BMI 37.2
--- NOTE | 2023-12-29 16:03 | MHC.PC.OV ---
Vital Signs 12/29/23 16:03 Height 5 ft 9 in Weight 252 lb BMI 37.2 BP 146/70 H Blood Pressure Location Lt brachial Position Sitting Pulse 91 Pulse Source Pulse Oximeter Pulse Oximetry (%) 98 Oxygen Delivery Method Room Air Intake Visit Reasons: Follow Up Electrode Cleaner Required: No Accompanied by: Self / Same As Patient Allergies codeine Allergy (Unknown, Verified 12/29/23 16:05) nausea and vomitting Medication List - Last Reconciled 12/29/23 by Nicki Haddad MD amlodipine 10 mg PO DAILY 90 days atorvastatin 40 mg PO DAILY hydrochlorothiazide 12.5 mg PO DAILY lisinopril 40 mg PO DAILY metoprolol succinate ER 25 mg PO DAILY Tobacco use date assessed: 04/14/23 Dental Screening Dental Screen Date: 08/07/23 HPI Follow Up HPI Details 58-year-old obese male with controlled diabetes mellitus hypercholesterolemia BPH GERD hypertension coming in for follow-up. Last seen in 08/18/2023. Concern about an elevated PSA and advised to be monitored. Cologuard to date 10/2022 [facility] Medical History (Updated 12/29/23 @ 16:30 by Nicki Haddad MD) Hypertension Closed fracture of right distal fibula History of renal calculi Gout Diabetic nephropathy Chronic kidney disease (CKD) stage G1/A1, glomerular filtration rate (GFR) equal to or greater than 90 mL/min/1.73 square meter and albuminuria creatinine ratio less than 30 mg/g Obesity (BMI 30-39.9) Type 2 diabetes mellitus with hyperglycemia Hypercholesterolemia BPH (benign prostatic hyperplasia) GERD (gastroesophageal reflux disease) Hypertension Vitamin D deficiency Surgical History History of prostate surgery S/P TURP Family History Father Bladder cancer Mother Breast cancer Maternal Uncle Myocardial infarction Brother Alzheimers disease Other Mental health disorder Social History Housing: Condominium Alcohol intake: current Patient Tobacco Use Status: Never used Tobacco e-Cigarette/Vaping Use: Never Used Second Hand Smoke Exposure: No service: No Current occupational status: employed Current occupational exposures/hazards: No Cognitive needs: No Hearing needs: Yes (hearing aids) Vision needs: Yes (glasses ) Questionnaire Thrive Questionnaire Date Thrive assessed: 07/12/22 Are you currently unemployed and looking for a job?: Yes KRYSTAL-7 AMB Questionnaire KRYSTAL-7 Date KRYSTAL - 7 assessed: 04/14/23 Source: Developed by Drs. Pedro Markham, Yani Rivas, Krunal Green and colleagues, with an educational yunier from [employer]. Physical exam (Primary Care) Vital Signs: Last Vital Signs Pulse 91 12/29/23 16:03 BP 146/70 H 12/29/23 16:03 Pulse Ox 98 12/29/23 16:03 Oxygen Delivery Method Room Air 12/29/23 16:03 BMI result Body Mass Index 37.2 Tobacco/Smoking Status: Tobacco use Status Tobacco use date assessed 04/14/23 12/29/23 16:04 Patient Tobacco Use Status Never used Tobacco 12/29/23 16:04 Tobacco use type 09/26/20 13:51 e-Cigarette/Vaping Use Never Used 12/29/23 16:04 Thrive Assessment: Date of Thrive Assessment Date Thrive assessed 07/12/22 12/29/23 16:04 Const General: alert; No acute distress Eyes Conjunctivae: conjunctivae normal Resp Auscultation: clear to auscultation bilaterally Cardio Rate: regular rate Rhythm: regular rhythm GI Inspection: Yes normal to inspection Extrem General: Yes normal to inspection and No edema Assessment and Plan Assessment & Plan (1) Type 2 diabetes mellitus with hyperglycemia: Comment: Dr. Evans Code(s): E11.65 - Type 2 diabetes mellitus with hyperglycemia Qualifiers: Diabetes mellitus fdc insulin use: without fdc use Qualified Code(s): E11.65 - Type 2 diabetes mellitus with hyperglycemia Plan: Decrease the amount of carbohydrate intake, pasta, bread, rice and potatoes are all sugar and that is aside from all the sweet stuff, remember that fruits are good but they are Sweet also. Hemoglobin A1c goal of less than 6.5. Patient is diet controlled (2) Hypercholesterolemia: Code(s): E78.00 - Pure hypercholesterolemia, unspecified Plan: Avoid fried foods, chicken skin, eggs, butter margarine, pastries and meat. Be it pork or beef they have a lot of cholesterol LDL goal of less than 100 and triglyceride of less than 150 on atorvastatin 40 mg once a day (3) GERD (gastroesophageal reflux disease): Code(s): K21.9 - Gastro-esophageal reflux disease without esophagitis Qualifiers: Esophagitis presence: without esophagitis Qualified Code(s): K21.9 - Gastro-esophageal reflux disease without esophagitis Plan: Avoid the foods that causes that usually spicy foods, tomato products, juices, coffee, soda and foods that your sensitive to. After eating do not lie down, allow 3-4 hours before in lie down. And keep the head of bed above 30 degrees to avoid the acid from going up. (4) Hypertension: Code(s): I10 - Essential (primary) hypertension Qualifiers: Hypertension type: essential hypertension Qualified Code(s): I10 - Essential (primary) hypertension Plan: Continue with blood pressure medication. Decrease salt intake and exercise on amlodipine 10 mg once a day lisinopril 40 mg once a day , hydrochlorothiazide 12.5 mg once a day and metoprolol 25 mg once a day. admits run out of metoprolol for 2 months (5) PSA elevation: Code(s): R97.20 - Elevated prostate specific antigen [PSA] Plan: Continue to follow-up PSA continue to follow-up with urology ADVISE to call urology for ff up (6) Obesity (BMI 30-39.9): Code(s): E66.9 - Obesity, unspecified Plan: Diet and exercise Orders: Orders CA echo transthoracic complete Today I10 - Essential (primary) hypertension Medications: Refilled metoprolol succinate ER 25 mg PO DAILY 90 tabs 2RF I10 - Essential (primary) hypertension Coding Level of Care Code Est Pt Level 4 (33469) Diagnoses Type 2 diabetes mellitus with hyperglycemia, without long-term current use of insulin E11.65 Diabetes mellitus intermediate project manager insulin use: without intermediate project manager use Hypercholesterolemia E78.00 Gastroesophageal reflux disease without esophagitis K21.9 Esophagitis presence: without esophagitis Essential hypertension I10 Hypertension type: essential hypertension PSA elevation R97.20 Obesity (BMI 30-39.9) E66.9
== END 2023-12-29 16:41 | disposition home or self-care (01) ==
PROVIDERS: PCP Internal Medicine; Visit Provider Internal Medicine
DX: E11.65 Type 2 diabetes mellitus with hyperglycemia (principal); E78.00 Pure hypercholesterolemia, unspecified; E66.9 Obesity, unspecified; Z68.37 Body mass index [BMI] 37.0-37.9, adult; K21.9 Gastro-esophageal reflux disease without esophagitis; I10 Essential (primary) hypertension; R97.20 Elevated prostate specific antigen [PSA]

== ENCOUNTER → 2023-12-29 15:59 | Outpatient (BNVA) | payer OTHER, SELFPAY | PROVIDERS: PCP Internal Medicine; Visit Provider Internal Medicine ==

== ENCOUNTER → 2024-01-19 15:07 | Outpatient (REF) | payer OTHER, SELFPAY ==
--- NOTE | 2024-01-19 15:09 | CA_ITS ---
Transthoracic Echocardiogram Patient (Last, First, Middle): Chidi Hilario, Gender: Male Date of : 1965 Age: 58 Procedure Date: 01/19/2024 Procedure Type: Transthoracic Echocardiogram Location: OP Height: 172.72 cm Weight: 117.94 kg BSA: 2.29 m2 Heart Rate: 98 bpm BP: 142 / 72 mmHg Surgical Technologist: SB Referring MD: Nicki Haddad MD Symptoms: I10 - Essential (primary) hypertension Study Quality: Fair ECG Rhythm: Sinus Conclusions: - The left ventricular systolic function is hyperdynamic. The visually estimated ejection fraction is >70%. - There is moderate calcification of the aortic valve. There is moderate aortic valve stenosis. Findings Procedure Information The quality of the study was technically difficult. The study quality is limited by patients body habitus. Left Ventricle Normal left ventricular cavity size. There is normal left ventricular wall thickness. The left ventricular systolic function is hyperdynamic. The visually estimated ejection fraction is >70%. There is no evidence of regional wall motion abnormalities. Evidence suggests grade I (mild) diastolic dysfunction. There is mild septal asymmetric hypertrophy. Right Ventricle Normal right ventricular cavity size and systolic function. Atria Both atria are normal in size. Aortic Valve The aortic valve was not well visualized. There is moderate calcification of the aortic valve. There is moderate aortic valve stenosis. The peak aortic velocity is 3.30 m/s with a calculated peak gradient of 44 mmHg. The mean gradient is 23 mmHg. The aortic valve area is 1.49 cm2. There is no aortic valve regurgitation. Dimensionless index 0.42. Mitral Valve The mitral valve was not well visualized. There is no mitral valve regurgitation. There is no mitral valve stenosis. Pulmonic Valve The pulmonic valve is likely normal. Tricuspid Valve There is no tricuspid valve regurgitation. Tricuspid regurgitation envelope is inadequate for calculation of right ventricular systolic pressure. Great Vessels The asc aorta is normal in size. Elevated arch velocities likely due to hyperdynamic state. Venous The inferior vena cava is normal in size and collapses less than 50% with inspiration. Pericardium/Pleural There is no evidence of pericardial effusion. Prior Study Comparison Changes noted compared to prior study dated: 12/18/2009. see comment on aortic valve. Measurements 2D Linear Measurements IVSd: 1.20 0.6-0.9/0.6-1.0 cm LVIDd: 4.73 3.9-5.3/4.2-5.9 cm LVIDd Index: 2.07 2.4-3.2/2.2-3.1 cm/m2 LVIDs: 3.65 2.0-3.6 cm LVPWd: 1.00 0.7-1.1 cm LA Diam: 4.30 2.7-3.8/3.0-4.0 cm LAIDs Index: 1.88 1.5-2.3 cm/m2 LV Mass: 236.07 67-162/88-224 g LV Mass Index: 103.09 43-95/49-115 g/m2 LVOT Diam: 2.00 3.0+(-)1.3 cm 2D Systolic Function EF 4C: 80.20 >55% Mitral Valve MV Pk E: 0.69 MV PK A: 1.04 MV Decel Time: 134.00 E/A: 0.70 E'Lateral: 9.46 E'Medial: 5.87 E/E' Med: 11.80 E/E' Lat: 7.30 PHT: 39.00 MVA PHT: 5.64 Decel Sanders: 5.19 Aortic Valve AoV Pk Rahat: 3.30 AoV Mn Rahat: 2.14 AoV VTI: 0.59 AoV Pk Grad: 44.00 Aov Mn Grad: 23.00 DIANA Cont.VTI: 1.49 LVOT LVOT Pk Rahat: 1.39 LVOT Mn Rahat: 0.99 LVOT VTI: 0.28 LVOT Pk Grad: 8.00 LVOT Mn Grad: 5.00 LVOT Diam: 2.00 LVOT Area: 3.14 Diastolic Function MV Pk E: 0.69 MV Pk A: 1.04 E/A: 0.70 E'Medial: 5.87 E/E' Med: 11.80 E' Laterial: 9.46 E/E' Lat: 7.30 Right Ventricle TAPSE (mm): 25.00 TVS' Rahat: 14.60 Tricuspid Valve RA Press: 15.00 Great Vessels Aorta Sinus of Valsalva: 3.10 2.0-3.5 cm Ao Asc: 3.10 2.1-3.4 cm Pulmonary Valve PV Pk Rahat: 1.26 Peak PV Grad: 6.00 Updated in Other Vendor System with Status of Final Regino Conner MD electronically signed on 01/20/2024 9:18:40 AM with status of Final
== END ==
LOC: HO.CARD 15:07
PROVIDERS: PCP Internal Medicine; Visit Provider Internal Medicine
DX: I10 Essential (primary) hypertension (principal)
CPT/HCPCS: 93306; Q9957

== ENCOUNTER → 2024-01-19 15:09 | Outpatient (BNV) | payer OTHER, SELFPAY | PROVIDERS: PCP Internal Medicine; Visit Provider Internal Medicine | DX: I35.0 Nonrheumatic aortic (valve) stenosis (principal); I42.2 Other hypertrophic cardiomyopathy | CPT/HCPCS: 93306 ==

== ENCOUNTER 2024-01-20 16:17 | Outpatient (AMB) | payer OTHER, SELFPAY ==
[2024-01-20 16:21] VITALS: BP 142/74; PULSE 92; O2SAT 94; BMI 38.1
--- NOTE | 2024-01-20 16:21 | MHC.PC.OV ---
Vital Signs 01/20/24 16:21 01/20/24 16:35 Height 5 ft 9 in Weight 258 lb BMI 38.1 BP 142/74 H 132/78 Blood Pressure Location Lt brachial Lt brachial Position Sitting Sitting Pulse 92 Pulse Source Pulse Oximeter Pulse Oximetry (%) 94 Oxygen Delivery Method Room Air Intake Visit Reasons: Annual Exam Executive Community Planning Required: No Accompanied by: Self / Same As Patient Allergies codeine Allergy (Unknown, Verified 01/20/24 16:21) nausea and vomitting Medication List - Last Reconciled 01/20/24 by Nicki Haddad MD amlodipine 10 mg PO DAILY 90 days atorvastatin 40 mg PO DAILY hydrochlorothiazide 12.5 mg PO DAILY lisinopril 40 mg PO DAILY metoprolol succinate ER 25 mg PO DAILY Tobacco use date assessed: 04/14/23 Dental Screening Dental Screen Date: 08/07/23 HPI Annual Exam HPI Details 58-year-old obese male with diabetes mellitus hypercholesterolemia hypertension GERD elevation and prostate number coming in for physical exam last seen in December 29 2023. Patient is up-to-date with Cologuard testing 11/17/2022.. Echocardiogram doneThe left ventricular systolic function is hyperdynamic. The visually estimated ejection fraction is >70%. - There is moderate calcification of the aortic valve. There is moderate aortic valve stenosis. 1.49 cm [facility] Medical History (Updated 01/20/24 @ 16:39 by Nicki Haddad MD) Hypertension Closed fracture of right distal fibula History of renal calculi Gout Diabetic nephropathy Chronic kidney disease (CKD) stage G1/A1, glomerular filtration rate (GFR) equal to or greater than 90 mL/min/1.73 square meter and albuminuria creatinine ratio less than 30 mg/g Obesity (BMI 30-39.9) Type 2 diabetes mellitus with hyperglycemia Hypercholesterolemia BPH (benign prostatic hyperplasia) GERD (gastroesophageal reflux disease) Hypertension Vitamin D deficiency Surgical History History of prostate surgery S/P TURP Family History Father Bladder cancer Mother Breast cancer Maternal Uncle Myocardial infarction Brother Alzheimers disease Other Mental health disorder Social History (Updated 01/20/24 @ 16:38 by Nicki Haddad MD) Housing: Condominium Alcohol intake: current Comment: 1 beer once a week Patient Tobacco Use Status: Never used Tobacco Tobacco use type: Cigarette e-Cigarette/Vaping Use: Never Used Second Hand Smoke Exposure: No service: No Current occupational status: employed Current occupational exposures/hazards: No Cognitive needs: No Hearing needs: Yes (hearing aids) Vision needs: Yes (glasses ) Questionnaire PHQ-9 Over the last 2 weeks, how often have you been bothered by any of the following problems? 1. Little interest or pleasure in doing things: not at all 2. Feeling down, depressed, or hopeless: not at all 3. Trouble falling or staying asleep, or sleeping too much: not at all 4. Feeling tired or having little energy: not at all 5. Poor appetite or overeating: not at all 6. Feeling bad about yourself - or that you are a failure or have let yourself or your family down: not at all 7. Trouble concentrating on things, such as reading the newspaper or watching television: not at all 8. Moving or speaking so slowly that other people could have noticed. Or the opposite - being so fidgety or restless that you have been moving around a lot more than usual: not at all 9. Thoughts that you would be better off or of hurting yourself in some way: not at all Total score: 0 Depression Screening Interpretation: Negative Depression Screening Done: Yes Source: Developed by Drs. Pedro Markham, Yani Rivas, Krunal Green and colleagues, with an educational yunier from [employer] Thrive Questionnaire Date Thrive assessed: 01/20/24 I am a: Patient What is your living situation today?: I choose not to answer this question Within the past 12 months, did the food you bought not last and you didn't have the money to get more?: I choose not to answer this question Within the past 12 months, did you worry whether your food would run out before you got money to buy more?: I choose not to answer this question Do you have trouble paying for medicines?: No Do you have trouble getting transportation to medical appointments?: I choose not to answer this question Do you have trouble paying your heating and electricity bill?: I choose not to answer this question Do you have trouble taking care of your child, family member or friend?: I choose not to answer this question Do you have trouble with day-to-day activities such as bathing, preparing meals, shopping, managing finances, etc.?: I choose not to answer this question Are you interested in more education?: I choose not to answer this question Please select the resources that you would like help with: None Currently or been in a relationship where the following occur: I choose not to answer THRIVE Score: 0 AUDIT C Alcohol Use Questionnaire (AUDIT-C) 1. How often do you have a drink containing alcohol?: Never 2. How many drinks containing alcohol do you have on a typical day when you are drinking?: 1 or 2 (0) 3. How often do you have six or more drinks on one occasion?: Never Total Score: 0 Score Reviewed/Action Taken: No KRYSTAL-7 AMB Questionnaire KRYSTAL-7 Date KRYSTAL - 7 assessed: 04/14/23 Feeling nervous, anxious, or on edge: 0 = Not at all Not being able to stop or control worryin = Not at all Worrying too much about different things: 2 = More than half the days Trouble relaxin = Not at all Being so restless that it is hard to sit still: 0 = Not at all Becoming easily annoyed or irritable: 0 = Not at all Feeling afraid as if something awful might happen: 0 = Not at all Total KRYSTAL-7 score (0-4 normal; 5-9 mild; 10-14 moderate; 15-21 severe): 2 Source: Developed by Drs. Pedro Markham, Yani Rivas, Krunal Green and colleagues, with an educational yunier from [employer] Review of Systems Const Denies poor appetite and Denies weakness Eyes Denies no additional complaints ENT Reports Normal hearing present, Denies dizziness, Denies nasal congestion, Denies tinnitus and Denies sore throat Card Denies chest pain, Denies syncope, Denies rapid heart rate and Denies dyspnea Resp Denies cough and Denies dyspnea GI Denies change in stool character, Reports constipation, Denies diarrhea, Denies nausea and Denies vomiting Denies dysuria and Denies urinary frequency Neuro Reports Normal hearing present, Denies confusion, Denies dizziness, Denies syncope and Denies weakness Psych Denies confusion Physical exam (Primary Care) Vital Signs: Last Vital Signs Pulse 92 01/20/24 16:21 BP 142/74 H 01/20/24 16:21 Pulse Ox 94 01/20/24 16:21 Oxygen Delivery Method Room Air 01/20/24 16:21 BMI result Body Mass Index 38.1 Tobacco/Smoking Status: Tobacco use Status Tobacco use date assessed 04/14/23 01/20/24 16:26 Patient Tobacco Use Status Never used Tobacco 01/20/24 16:26 Tobacco use type Cigarette 01/20/24 16:26 e-Cigarette/Vaping Use Never Used 01/20/24 16:26 PHQ-9: PHQ-9 Score PHQ-9: Total score 0 01/20/24 16:26 Depression Screening Interpretation: Negative Thrive Assessment: Date of Thrive Assessment Date Thrive assessed 01/20/24 01/20/24 16:26 Currently or been in a relationship where the following occur: I choose not to answer Const General: No confusion Orientation/consciousness: No confusion HENMT Other: decline ear exam Head: Yes normocephalic Ears: external ears normal Face and sinus: Yes normal facial exam Mouth: moist mucous membranes Throat: Yes tonsils normal Eyes Conjunctivae: conjunctivae normal Pupils: Equal, round and reactive pupils present and Pupil accommodation reflex normal Direct Ophthalmoscopy: normal light reflex Neck Neck: No lymphadenopathy Thyroid: Thyroid normal Chest Chest palpation & inspection: normal inspection of the chest Resp Effort & Inspection: normal respiratory effort and no audible wheezes Auscultation: clear to auscultation bilaterally, no crackles, no wheezes and lung sounds not diminished Cardio Rate: regular rate Rhythm: regular rhythm Heart sounds: Murmur heart sound present Peripheral pulses: radial pulses present and dorsalis pedis present GI Other: guaaic negative and prostate N pin prick and pedal pulse N Palpation (GI): no masses Auscultation: normal bowel sounds and normoactive bowel sounds Skin General skin exam: no rashes or lesions noted Rashes: no rashes Neuro General: No confusion Cranial nerves: Yes Equal, round and reactive pupils present and Yes Normal hearing present Cognition (Neuro): normal cognition Gait exam (Neuro): Normal gait present Motor exam (neuro): 5/5 motor strength present throughout Deep tendon reflexes (DTR's): Right brachioradialis reflex intensity grade: 2+, Left brachioradialis reflex intensity grade: 2+, Right patellar reflex intensity grade: 2+ and Left patellar reflex intensity grade: 2+ Extrem General: No edema Coding Level of Care Code Est Pt Prev Care 40-64y(25167) Diagnoses Annual physical exam Z00.00 Type 2 diabetes mellitus with hyperglycemia, without long-term current use of insulin E11.65 Diabetes mellitus manager intermediate insulin use: without group home use Obesity (BMI 30-39.9) E66.9 Hypercholesterolemia E78.00 Benign prostatic hyperplasia with urinary frequency N40.1; R35.0 Lower urinary tract symptom presence: symptoms present Lower urinary tract symptom detail: urinary frequency Essential hypertension I10 Hypertension type: essential hypertension Gastroesophageal reflux disease without esophagitis K21.9 Esophagitis presence: without esophagitis Aortic stenosis I35.0 Additional Codes PHQ-9 - 84348 - PHQ-9 Billing: ([id number]) Assessment & Plan Assessment & Plan (1) Annual physical exam: Code(s): Z00.00 - Encounter for general adult medical examination without abnormal findings Category: Medical Plan: Patient is advised to eat healthy, keep well hydrated, keep active and have adequate sleep. (2) Type 2 diabetes mellitus with hyperglycemia: Comment: Dr. Evans Code(s): E11.65 - Type 2 diabetes mellitus with hyperglycemia Category: Medical Qualifiers: Diabetes mellitus manager intermediate insulin use: without group home use Qualified Code(s): E11.65 - Type 2 diabetes mellitus with hyperglycemia Plan: Decrease the amount of carbohydrate intake, pasta, bread, rice and potatoes are all sugar and that is aside from all the sweet stuff, remember that fruits are good but they are Sweet also. Hemoglobin A1c goal of less than 6.5. Patient on diet control (3) Obesity (BMI 30-39.9): Code(s): E66.9 - Obesity, unspecified Category: Medical Plan: Diet and exercise (4) Hypercholesterolemia: Code(s): E78.00 - Pure hypercholesterolemia, unspecified Category: Medical Plan: Avoid fried foods, chicken skin, eggs, butter margarine, pastries and meat. Be it pork or beef they have a lot of cholesterol LDL goal of less than 100 and triglyceride of less than 150 on atorvastatin 40 mg once a day (5) BPH (benign prostatic hyperplasia): Code(s): N40.0 - Benign prostatic hyperplasia without lower urinary tract symptoms Category: Medical Qualifiers: Lower urinary tract symptom presence: symptoms present Lower urinary tract symptom detail: urinary frequency Qualified Code(s): N40.1 - Benign prostatic hyperplasia with lower urinary tract symptoms; R35.0 - Frequency of micturition Plan: Continue to monitor. (6) Hypertension: Code(s): I10 - Essential (primary) hypertension Category: Medical Qualifiers: Hypertension type: essential hypertension Qualified Code(s): I10 - Essential (primary) hypertension Plan: Continue with blood pressure medication. Decrease salt intake and exercise patient is presently on metoprolol 25 mg once a day lisinopril 40 mg once a day hydrochlorothiazide 12.5 mg once a day and amlodipine 10 mg once a day (7) GERD (gastroesophageal reflux disease): Code(s): K21.9 - Gastro-esophageal reflux disease without esophagitis Category: Medical Qualifiers: Esophagitis presence: without esophagitis Qualified Code(s): K21.9 - Gastro-esophageal reflux disease without esophagitis Plan: Avoid the foods that causes that usually spicy foods, tomato products, juices, coffee, soda and foods that your sensitive to. After eating do not lie down, allow 3-4 hours before in lie down. And keep the head of bed above 30 degrees to avoid the acid from going up. (8) Aortic stenosis: Comment: Echocardiogram December 2023 1.49 cm Code(s): I35.0 - Nonrheumatic aortic (valve) stenosis Category: Medical Plan: Echocardiogram done in December 2023 1.49 cm Medications: New omeprazole 20 mg PO DAILY 30 caps 2RF K21.9 - Gastro-esophageal reflux disease without esophagitis Refilled atorvastatin 40 mg PO DAILY 90 tabs 2RF E78.00 - Pure hypercholesterolemia, unspecified atorvastatin 40 mg PO DAILY 90 tabs 2RF E78.00 - Pure hypercholesterolemia, unspecified metoprolol succinate ER 25 mg PO DAILY 90 tabs 2RF I10 - Essential (primary) hypertension lisinopril 40 mg PO DAILY 90 tabs 2RF I10 - Essential (primary) hypertension amlodipine 10 mg PO DAILY 90 days 90 tabs 3RF I10 - Essential (primary) hypertension hydrochlorothiazide 12.5 mg PO DAILY 90 tabs 3RF I10 - Essential (primary) hypertension
[2024-01-20 16:35] VITALS: BP 132/78
== END 2024-01-20 17:03 | disposition home or self-care (01) ==
PROVIDERS: PCP Internal Medicine; Visit Provider Internal Medicine
DX: Z00.00 Encounter for general adult medical examination without abnormal findings (principal); E11.65 Type 2 diabetes mellitus with hyperglycemia; E66.9 Obesity, unspecified; Z68.38 Body mass index [BMI] 38.0-38.9, adult; E78.00 Pure hypercholesterolemia, unspecified; N40.1 Benign prostatic hyperplasia with lower urinary tract symptoms; R35.0 Frequency of micturition; I10 Essential (primary) hypertension; K21.9 Gastro-esophageal reflux disease without esophagitis; I35.0 Nonrheumatic aortic (valve) stenosis

== ENCOUNTER → 2024-01-20 16:17 | Outpatient (BNVA) | payer OTHER, SELFPAY | PROVIDERS: PCP Internal Medicine; Visit Provider Internal Medicine | DX: Z00.00 Encounter for general adult medical examination without abnormal findings (principal); E11.65 Type 2 diabetes mellitus with hyperglycemia; E66.9 Obesity, unspecified; E78.00 Pure hypercholesterolemia, unspecified; N40.1 Benign prostatic hyperplasia with lower urinary tract symptoms; R35.0 Frequency of micturition; I10 Essential (primary) hypertension; K21.9 Gastro-esophageal reflux disease without esophagitis; I35.0 Nonrheumatic aortic (valve) stenosis; Z79.899 Other long term (current) drug therapy | CPT/HCPCS: 96127 ==

== ENCOUNTER 2024-04-23 15:42 | Outpatient (AMB) | payer OTHER, SELFPAY ==
--- NOTE | 2024-04-23 15:52 | MHC.PC.OV ---
Vital Signs 04/23/24 15:53 Height 5 ft 9 in Weight 253 lb 6 oz BMI 37.4 BP 132/70 Blood Pressure Location Lt brachial Position Sitting Pulse 87 Pulse Source Pulse Oximeter Temp 97.1 F Temp Source Skin Pulse Oximetry (%) 96 Oxygen Delivery Method Room Air Intake Visit Reasons: DM Intake Note: Patient is here to follow up on DM. Tobacco Wrapping Machine Tender Required: No Storm Chaser: Not Required per policy Accompanied by: Self / Same As Patient Allergies codeine Allergy (Unknown, Verified 04/23/24 15:53) nausea and vomitting Tobacco use date assessed: 04/23/24 Dental Screening Dental Screen Date: 04/23/24 Did you have a dental visit in the last 12 months?: Yes Did you have a dental problem in the last 6 months where you did not have access to dental care?: No Was dental information given to patient?: Patient has dentist HPI DM HPI Details The patient is a 58-year-old male presenting with Type 2 Diabetes Mellitus management concerns. He reports continued high glucose levels, attributed primarily to excessive candy consumption. Despite dietary recommendations to control blood sugar, the patient's adherence has been inconsistent. He acknowledges a fondness for candy, which constitutes a significant challenge to glycemic control. Previous interventions include dietary modifications and lifestyle changes, with limited success. Recent measurements indicate elevated blood glucose levels, prompting consideration of pharmacological interventions. Additionally, the patient has a history of Essential Hypertension, which has been well controlled according to recent blood pressure readings. He is also noted to be overweight, with a current weight of 258 pounds, having lost 5 pounds over the holiday period. The patient has been advised regarding ideal weight goals, targeting less than 200 pounds, to enhance overall health maintenance. He has been counseled on reducing high-caloric intake from candy and other processed foods to aid in weight loss and glycemic control. The patient received a flu shot and acknowledges the importance of continued immunization, particularly given recent increases in respiratory illnesses, including influenza, COVID-19, and RSV. Lifestyle adjustments concerning exposure to illness have been discussed. [facility] Medical History (Updated 01/20/24 @ 16:39 by Nicki Haddad MD) Hypertension Closed fracture of right distal fibula History of renal calculi Gout Diabetic nephropathy Chronic kidney disease (CKD) stage G1/A1, glomerular filtration rate (GFR) equal to or greater than 90 mL/min/1.73 square meter and albuminuria creatinine ratio less than 30 mg/g Obesity (BMI 30-39.9) Type 2 diabetes mellitus with hyperglycemia Hypercholesterolemia BPH (benign prostatic hyperplasia) GERD (gastroesophageal reflux disease) Hypertension Vitamin D deficiency Surgical History History of prostate surgery S/P TURP Family History Father Bladder cancer Mother Breast cancer Maternal Uncle Myocardial infarction Brother Alzheimers disease Other Mental health disorder Social History Housing: Condominium Alcohol intake: current Comment: 1 beer once a week Patient Tobacco Use Status: Never used Tobacco Tobacco use type: Cigarette e-Cigarette/Vaping Use: Never Used Second Hand Smoke Exposure: No service: No Current occupational status: employed Current occupational exposures/hazards: No Cognitive needs: No Hearing needs: Yes (hearing aids) Vision needs: Yes (glasses ) Questionnaire PHQ-9 Over the last 2 weeks, how often have you been bothered by any of the following problems? 1. Little interest or pleasure in doing things: not at all 2. Feeling down, depressed, or hopeless: not at all 3. Trouble falling or staying asleep, or sleeping too much: not at all 4. Feeling tired or having little energy: not at all 5. Poor appetite or overeating: not at all 6. Feeling bad about yourself - or that you are a failure or have let yourself or your family down: not at all 7. Trouble concentrating on things, such as reading the newspaper or watching television: not at all 8. Moving or speaking so slowly that other people could have noticed. Or the opposite - being so fidgety or restless that you have been moving around a lot more than usual: not at all 9. Thoughts that you would be better off or of hurting yourself in some way: not at all Total score: 0 Depression Screening Interpretation: Negative Depression Screening Done: Yes Source: Developed by Drs. Pedro Markham, Yani Rivas, Krunal Green and colleagues, with an educational yunier from [employer]. Thrive Questionnaire Date Thrive assessed: 04/23/24 AUDIT C Alcohol Use Questionnaire (AUDIT-C) 1. How often do you have a drink containing alcohol?: Never Total Score: 0 KRYSTAL-7 AMB Questionnaire KRYSTAL-7 Date KRYSTAL - 7 assessed: 04/23/24 Feeling nervous, anxious, or on edge: 0 = Not at all Not being able to stop or control worryin = Not at all Worrying too much about different things: 0 = Not at all Trouble relaxin = Not at all Being so restless that it is hard to sit still: 0 = Not at all Becoming easily annoyed or irritable: 0 = Not at all Feeling afraid as if something awful might happen: 0 = Not at all Total KRYSTAL-7 score (0-4 normal; 5-9 mild; 10-14 moderate; 15-21 severe): 0 Source: Developed by Drs. Pedro Markham, Yani Rivas, Krunal Green and colleagues, with an educational yunier from [employer]. Physical exam (Primary Care) Vital Signs: Last Vital Signs Temp 97.1 F 04/23/24 15:53 Pulse 87 04/23/24 15:53 BP 132/70 04/23/24 15:53 Pulse Ox 96 04/23/24 15:53 Oxygen Delivery Method Room Air 04/23/24 15:53 BMI result Body Mass Index 37.4 Tobacco/Smoking Status: Tobacco use Status Tobacco use date assessed 04/23/24 04/23/24 16:08 Patient Tobacco Use Status Never used Tobacco 04/23/24 16:08 Tobacco use type Cigarette 04/23/24 16:08 e-Cigarette/Vaping Use Never Used 04/23/24 16:08 PHQ-9: PHQ-9 Score PHQ-9: Total score 0 04/23/24 16:20 Depression Screening Interpretation: Negative Thrive Assessment: Date of Thrive Assessment Date Thrive assessed 04/23/24 04/23/24 16:08 Const General: alert; No acute distress Eyes Conjunctivae: conjunctivae normal Resp Auscultation: clear to auscultation bilaterally Cardio Rate: regular rate Rhythm: regular rhythm GI Inspection: Yes normal to inspection Extrem General: Yes normal to inspection and No edema Results AMB Hemoglobin A1c AMB Hemoglobin A1c 6.8 % Last Edit by MAITE Mark on 04/23/24 16:10 Results Reviewed Results Reviewed: Laboratory Last Values Hgb A1c (Clinic) 6.8 % (4.0-6.0) H 04/23/24 15:52 Coding Level of Care Code Est Pt Level 4 (99211) Complex EM visit Add On G2211 Diagnoses Type 2 diabetes mellitus with hyperglycemia, without long-term current use of insulin E11.65 Diabetes mellitus alf insulin use: without terminal makeup operator use Hypercholesterolemia E78.00 Essential hypertension I10 Hypertension type: essential hypertension Gastroesophageal reflux disease without esophagitis K21.9 Esophagitis presence: without esophagitis Obesity (BMI 30-39.9) E66.9 Assessment & Plan Assessment & Plan (1) Type 2 diabetes mellitus with hyperglycemia: Comment: Dr. Evans Code(s): E11.65 - Type 2 diabetes mellitus with hyperglycemia Category: Medical Qualifiers: Diabetes mellitus terminal makeup operator insulin use: without terminal makeup operator use Qualified Code(s): E11.65 - Type 2 diabetes mellitus with hyperglycemia Plan: Decrease the amount of carbohydrate intake, pasta, bread, rice and potatoes are all sugar and that is aside from all the sweet stuff, remember that fruits are good but they are Sweet also. Hemoglobin A1c goal of less than 6.5. Will start on metformin. Discussed about side effect profile of diarrhea and abdominal pain. (2) Hypercholesterolemia: Code(s): E78.00 - Pure hypercholesterolemia, unspecified Category: Medical Plan: Avoid fried foods, chicken skin, eggs, butter margarine, pastries and meat. Be it pork or beef they have a lot of cholesterol LDL goal of less than 100 and triglyceride of less than 150 on atorvastatin 40 mg once a day (3) Hypertension: Code(s): I10 - Essential (primary) hypertension Category: Medical Qualifiers: Hypertension type: essential hypertension Qualified Code(s): I10 - Essential (primary) hypertension Plan: Continue with blood pressure medication. Decrease salt intake and exercise patient is taking lisinopril 40 mg once a day metoprolol 25 mg once a day amlodipine 10 mg once a day and hydrochlorothiazide 12.5 mg once a day. (4) GERD (gastroesophageal reflux disease): Code(s): K21.9 - Gastro-esophageal reflux disease without esophagitis Category: Medical Qualifiers: Esophagitis presence: without esophagitis Qualified Code(s): K21.9 - Gastro-esophageal reflux disease without esophagitis Plan: Avoid the foods that causes that usually spicy foods, tomato products, juices, coffee, soda and foods that your sensitive to. After eating do not lie down, allow 3-4 hours before in lie down. And keep the head of bed above 30 degrees to avoid the acid from going up. (5) Obesity (BMI 30-39.9): Code(s): E66.9 - Obesity, unspecified Category: Medical Plan: Discussed about needing to lose weight and keep active. Plan - Initiate pharmacological therapy for Type 2 Diabetes Mellitus, commencing with medication prescribed to be taken twice daily. - Designer Architect the patient on dietary modifications, emphasizing calorie and sugar reduction. Stress the avoidance of candies and processed foods high in sugars. - Continue monitoring blood pressure to ensure Essential Hypertension remains controlled. - Encourage further weight loss through dietary modifications and increased physical activity, aiming for a target weight less than 200 pounds. - Reinforce the importance of annual influenza immunization and encourage hand hygiene and social distancing measures to prevent respiratory infections. Orders: Orders AMB Hemoglobin A1c Today E11.65 - Type 2 diabetes mellitus with hyperglycemia Medications: New metformin 500 mg PO BIDWMEAL 180 tabs 3RF E11.65 - Type 2 diabetes mellitus with hyperglycemia
[2024-04-23 15:53] VITALS: BP 132/70; PULSE 87; TEMP 36.2; O2SAT 96; BMI 37.4
--- OUTSIDE RECORDS SUMMARY | 2024-04-23 16:33 | XMS_ITS | Clinical Summary ---
Author Organization [facility], Address [address] [place] [address] [place] [address] Phone Care Team Providers Care Director Of Real Estate Name Role Phone Nicki Haddad MD Primary Care Provider [phone] Allergies No known active allergies Medications amLODIPine (NORVASC) 10 MG tablet Take 10 mg by mouth 1 (one) time each day 09/11/2021 Active Aspirin Low Dose 81 MG EC tablet Take 81 mg by mouth 1 (one) time each day 09/11/2021 Active atorvastatin (LIPITOR) 40 MG tablet Take 40 mg by mouth 1 (one) time each day 08/13/2021 Active finasteride (PROSCAR) 5 MG tablet Take 5 mg by mouth 1 (one) time each day 08/31/2021 Active Cyanocobalamin (B-12) 1000 MCG capsule Take 1 capsule by mouth 1 (one) time each day 06/23/2021 Active lisinopril 40 MG tablet Take 40 mg by mouth 1 (one) time each day 08/21/2021 Active tamsulosin (FLOMAX) 0.4 MG 24 hr capsule TAKE 1 CAPSULE BY MOUTH EVERY NIGHT AT BEDTIME 08/26/2021 Active Active Problems Problem Noted Date Diagnosed Date 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 Hypertension 09/21/2021 Benign prostatic hyperplasia 09/21/2021 Social History Tobacco Use Types Packs/Day Years Used Date Smoking Tobacco: Never Sex and Gender Information Value Date Recorded Sex Assigned at Not on file Legal Sex Male 12:48 PM EDT Gender Identity Not on file Sexual Orientation Not on file Plan of Treatment Health Maintenance Due Date Last Done Comments Colorectal Cancer Screening: Annual FOBT 07/06/2012 Colorectal Cancer Screening: Colonoscopy 07/06/2012 Colorectal Cancer Screening: Sigmoidoscopy 07/06/2012 Influenza Vaccine (#1) 2023 Hepatitis B Vaccine Aged Out No longe r eligible based on patient's age to complete this topic Pneumococcal Vaccine: Pediat rics (0 to 5 Years) and At-Risk Patients (6 to 64 Years) Aged Out No longer eligible b ased on patient's age to complete [place] [id number] [facility] Care Teams Director Of Real Estate Relationship Specialty Start Date End Date Nicki Haddad MD [facility] [place] [address] [place], [place] PCP - General Internal Medicine 09/21/21
--- OUTSIDE RECORDS SUMMARY | 2024-04-23 16:34 | XMS_ITS | Patient Health Record ---
Author Organization [facility] Address [address] [place] [address] Care Team Providers Care Cinetechnician Name Role Phone Po Nicki STEWART Primary Care Provider Pedro Mclain [phone] ALLERGIES Allergen (clinical drug ingredient) Drug/Non Drug Allergy documented on EMR Reaction Allergy Type Onset Date Status codeine Codeine N/V Drug Allergy Active REASON FOR REFERRAL No Information MEDICATIONS Medication SIG (Take, Route, Frequency, Duration) Notes Start Date End Date Status Finasteride 5 MG Oral for 30 A ctive Aspirin Low Dose 81 MG TAKE 1 TABLET BY MOUTH DAILY Oral for 90 Active Tamsulosin HCl Activ e Vitamin B12 100 MCG as directed Orally O nce a day Active Lisinopril 40 MG TAKE 1 TABLET BY BRYSON TH DAILY Diagnosis Unavailable Oral for 60 Active amLODIPine Besylate 10 MG Oral for 30 Active Atorvastatin Calcium 40 MG Oral for 60 Active SOCIAL HISTORY Sex Assigned At : Social History Observation Description Sex Assigned At Unknown PROBLEMS Problem Type ICD Code Onset Dates Problem Status W/U Status Risk SNOMED Code Notes Problem Encounter for screening for malignant neoplasm of colon (Z12.11) Active confirmed Screening for malignant neoplasm of colon (687427463) 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 (Z79.82) Active confirmed Long-term current use of antiplatelet drug (50822795969231 1) Problem Encounter for other preprocedural examination (Z01.818) Active confirmed Pre-procedure evaluation check (070033477) PLAN OF TREATMENT Future Test Test Name Order Date COLONOSCOPY 08/31/2021 Insurance Providers Payer Name Payer Address Payer Phone Subscriber Number Group Number Insured Name Patient Relationship to Insured Coverage Start Date Coverage End Date [employer] [facility] [address] [place] [address] [id number] LESLYE GONZALEZ Self - patient is the insured MEDICAL (GENERAL) HISTORY Medical History History ICD Code Hypertension Hypercholesterolemia Kidney stones Enlarged prostate--seeing Dr. Ursula august r the below surgeries Gout GERD Surgical History Surgery Date(Month/Year) Prostate surgery x 2--has a Guo catheter in as of the 08/31/2021 OV--he thinks he might be having more surgery at some point with Dr. Vergara
== END 2024-04-23 16:38 | disposition home or self-care (01) ==
PROVIDERS: PCP Internal Medicine; Visit Provider Internal Medicine
DX: E11.65 Type 2 diabetes mellitus with hyperglycemia (principal); E78.00 Pure hypercholesterolemia, unspecified; E66.9 Obesity, unspecified; Z68.37 Body mass index [BMI] 37.0-37.9, adult; I10 Essential (primary) hypertension; K21.9 Gastro-esophageal reflux disease without esophagitis

== ENCOUNTER → 2024-04-23 15:42 | Outpatient (BNVA) | payer OTHER, SELFPAY | PROVIDERS: PCP Internal Medicine; Visit Provider Internal Medicine | DX: E11.65 Type 2 diabetes mellitus with hyperglycemia (principal); E78.00 Pure hypercholesterolemia, unspecified; I10 Essential (primary) hypertension; K21.9 Gastro-esophageal reflux disease without esophagitis; E66.9 Obesity, unspecified; Z68.37 Body mass index [BMI] 37.0-37.9, adult; Z79.899 Other long term (current) drug therapy | CPT/HCPCS: 83036; 96127 ==

== ENCOUNTER 2024-07-30 15:42 | Outpatient (AMB) | payer OTHER, SELFPAY ==
--- OUTSIDE RECORDS SUMMARY | 2024-07-30 15:45 | XMS_ITS | Patient Health Record ---
Author Organization [facility] Address [address] [place] [address] Care Team Providers Care Air Analysis Technician Name Role Phone Po Nicki STEWART Primary Care Provider Pedro Mclain [phone] Allergies Allergen (clinical drug ingredient) Drug/Non Drug Allergy documented on EMR Reaction Allergy Type Onset Date Status codeine Codeine N/V Drug Allergy Active Reason For Referral No Information Medications Medication SIG (Take, Route, Frequency, Duration) Notes [...] Calcium 40 MG Oral for 60 Active Problems Problem Type SNOMED Code ICD Code Onset Dates Problem Status W/U Status Risk Notes Problem Encounter for screening for malignant neoplasm of colon (Z12.11) Active confirmed Problem Pre-procedure evaluation check (654064297) Encounter for other preprocedural examination (Z01.818) Active confirmed Problem Long-term current use of antiplatelet drug (534459001499403 ) assisted (current) use of aspirin (Z79.82) Active confirmed Plan Of Treatment Future Test Test Name Order Date COLONOSCOPY 08/31/2021 Insurance Providers Payer Name Payer Address Payer Phone Subscriber Number Group Number Insured Name Patient Relationship to Insured Coverage Start Date Coverage End Date BLUE CROSS [facility] [address] [place] [address] [id number] LILLY PALMER LESLYE Self - patient is the insured Medical (General) History Medical History History ICD Code Hypertension Hypercholesterolemia Kidney stones Enlarged prostate--seeing Dr. Vergara fo r the below surgeries Gout GERD Surgical History Surgery Date(Month/Year) Prostate surgery x 2--has a Guo catheter in as of the 08/31/2021 OV--he thinks he might be having more surgery at some point with Dr. Vergara
--- OUTSIDE RECORDS SUMMARY | 2024-07-30 15:45 | XMS_ITS | Clinical Summary ---
Author Organization [facility], Address [address] [place] [address] [place] [address] Phone Care Team Providers Care Wash Test Checker Name Role Phone Nicki Haddad MD Primary Care Provider [phone] Allergies No known active allergies Medications amLODIPine [...] Colonoscopy 07/06/2012 Colorectal Cancer Screening: Sigmoidoscopy 07/06/2012 Pneumococcal Vaccine: 50+ Ye ars (1 of 1 - PCV) 07/06/2013 Influenza Vaccine (Season Ended) 2024 Hepatitis B Vaccine Aged Out No longe r eligible based on patient's age to complete this topic Insurance [facility] Care Teams Wash Test Checker Relationship Specialty Start Date End Date Nicki Haddad MD [facility] [address] [place], [place] PCP - General Internal Medicine 09/21/21
--- NOTE | 2024-07-30 15:52 | A.OFFPC_ITS ---
Vital Signs 07/30/24 15:54 07/30/24 16:19 Height 5 ft 9 in Weight 254 lb 6 oz BMI 37.6 BP 142/72 H 138/68 Blood Pressure Location Lt brachial Lt brachial Position Sitting Sitting Pulse 92 Pulse Source Pulse Oximeter Temp 97.5 F Temp Source Temporal Artery Scan Pulse Oximetry (%) 94 Oxygen Delivery Method Room Air Intake Visit Reasons: DM Intake Note: Patient is here to follow up on DM. Briquette Molder Required: No Surface Room Shop Optician: Not Required per policy Accompanied by: Self / Same As Patient Allergies codeine Allergy (Unknown, Verified 07/30/24 15:53) nausea and vomitting Tobacco use date assessed: 07/30/24 Dental Screening Dental Screen Date: 04/23/24 [facility] Medical History (Updated 01/20/24 @ 16:39 by Nicki Haddad MD) Hypertension Closed fracture of right distal fibula History of renal calculi Gout Diabetic nephropathy Chronic kidney disease (CKD) stage G1/A1, glomerular filtration rate (GFR) equal to or greater than 90 mL/min/1.73 square meter and albuminuria creatinine ratio less than 30 mg/g Obesity (BMI 30-39.9) Type 2 diabetes mellitus with hyperglycemia Hypercholesterolemia BPH (benign prostatic hyperplasia) GERD (gastroesophageal reflux disease) Hypertension Vitamin D deficiency Surgical History History of prostate surgery S/P TURP Family History Father Bladder cancer Mother Breast cancer Maternal Uncle Myocardial infarction Brother Alzheimers disease Other Mental health disorder Social History Housing: Condominium Alcohol intake: current Comment: 1 beer once a week Patient Tobacco Use Status: Never used Tobacco Tobacco use type: Cigarette e-Cigarette/Vaping Use: Never Used Second Hand Smoke Exposure: No service: No Current occupational status: employed Current occupational exposures/hazards: No Cognitive needs: No Hearing needs: Yes (hearing aids) Vision needs: Yes (glasses ) Questionnaire PHQ-9 Over the last 2 weeks, how often have you been bothered by any of the following problems? 1. Little interest or pleasure in doing things: nearly every day 2. Feeling down, depressed, or hopeless: not at all 3. Trouble falling or staying asleep, or sleeping too much: several days 4. Feeling tired or having little energy: several days 5. Poor appetite or overeating: not at all 6. Feeling bad about yourself - or that you are a failure or have let yourself or your family down: not at all 7. Trouble concentrating on things, such as reading the newspaper or watching television: several days 8. Moving or speaking so slowly that other people could have noticed. Or the opposite - being so fidgety or restless that you have been moving around a lot more than usual: several days 9. Thoughts that you would be better off or of hurting yourself in some way: several days Total score: 8 Depression Screening Interpretation: Positive Depression Screening Done: Yes Source: Developed by Drs. Pedro Markham, Krunal Bill and colleagues, with an educational yunier from [employer]. Thrive Questionnaire Date Thrive assessed: 07/30/24 I am a: Patient What is your living situation today?: I have a steady place to live Within the past 12 months, did the food you bought not last and you didn't have the money to get more?: Often true Within the past 12 months, did you worry whether your food would run out before you got money to buy more?: I choose not to answer this question Do you have trouble paying for medicines?: No Do you have trouble getting transportation to medical appointments?: No Do you have trouble paying your heating and electricity bill?: No Do you have trouble taking care of your child, family member or friend?: No Do you have trouble with day-to-day activities such as bathing, preparing meals, shopping, managing finances, etc.?: No Are you currently unemployed and looking for a job?: No Are you interested in more education?: No Please select the resources that you would like help with: None THRIVE Score: 1 KRYSTAL-7 AMB Questionnaire KRYSTAL-7 Date KRYSTAL - 7 assessed: 04/23/24 Source: Developed by Drs. Pedro Markham, Yani Rivas, Krunal Green and colleagues, with an educational yunier from [employer]. Physical exam (Primary Care) Vital Signs: Last Vital Signs Temp 97.5 F 05/02/25 15:54 Pulse 92 07/30/24 15:54 BP 138/68 07/30/24 16:19 Pulse Ox 94 07/30/24 15:54 Oxygen Delivery Method Room Air 07/30/24 15:54 BMI result Body Mass Index 37.6 Tobacco/Smoking Status: Tobacco use Status Tobacco use date assessed 07/30/24 07/30/24 16:00 Patient Tobacco Use Status Never used Tobacco 07/30/24 16:00 Tobacco use type Cigarette 07/30/24 16:00 e-Cigarette/Vaping Use Never Used 07/30/24 16:00 PHQ-9: PHQ-9 Score PHQ-9: Total score 8 07/30/24 16:37 Depression Screening Interpretation: Positive Thrive Assessment: Date of Thrive Assessment Date Thrive assessed 07/30/24 07/30/24 16:00 Const General: alert; No acute distress Eyes Conjunctivae: conjunctivae normal Resp Auscultation: clear to auscultation bilaterally Cardio Other: 2/6 holysystolic murmur Rate: regular rate Rhythm: regular rhythm Heart sounds: Murmur heart sound present GI Inspection: Yes normal to inspection Extrem General: Yes normal to inspection and No edema Results AMB Hemoglobin A1c AMB Hemoglobin A1c 6.3 % Last Edit by MAITE Mark on 07/30/24 16:05 Immunizations tetanus-diphtheria toxoids-Td 2 Lf unit-2 Lf unit/0.5 mL IM suspension Performing Provider: Nicki Haddad MD [facility] Administered by: MAITE Mederos on 07/30/24 16:33 Dose Route Admin Location Dispensed Lot Number Expiration Date NDC Personal Injury Litigation Paralegal 0.5 mL IM Left Deltoid 0.5 mL [id number] 05/29/26 [id number] [employer] VIS Given Date VIS Provided VIS Publication Date 07/30/24 Single Vaccine 20 Eligibility Eligibility Date Funding Source Not [facility] Eligible 07/30/24 Private Results Reviewed Results Reviewed: Laboratory Last Values Hgb A1c (Clinic) 6.3 % (4.0-6.0) H 07/30/24 15:52 Coding Level of Care Code Est Pt Level 4 (57279) Complex EM visit Add On G2211 Diagnoses Type 2 diabetes mellitus with hyperglycemia, without long-term current use of insulin E11.65 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 Evans Code(s): E11.65 - Type 2 diabetes mellitus with hyperglycemia Category: Medical Qualifiers: Diabetes mellitus detention insulin use: without detention use Qualified Code(s): E11.65 - Type 2 diabetes mellitus with hyperglycemia Plan: Decrease the amount of carbohydrate intake, pasta, bread, rice and potatoes are all sugar and that is aside from all the sweet stuff, remember that fruits are good but they are Sweet also. Hemoglobin A1c goal of less than 6.5 patient on metformin 500 mg twice a day (2) Hypertension: Code(s): I10 - Essential (primary) hypertension Category: Medical Qualifiers: Hypertension type: essential hypertension Qualified Code(s): I10 - Essential (primary) hypertension Plan: Continue with blood pressure medication. Decrease salt intake and exercise on metoprolol 25 mg once a day lisinopril 40 mg once a day hydrochlorothiazide 12.5 mg Friday and amlodipine 10 mg once a day (3) Hypercholesterolemia: Code(s): E78.00 - Pure hypercholesterolemia, unspecified Category: Medical Plan: Avoid fried foods, chicken skin, eggs, butter margarine, pastries and meat. Be it pork or beef they have a lot of cholesterol LDL goal of less than 100 and triglyceride of less than 150 (4) BPH (benign prostatic hyperplasia): Code(s): N40.0 - Benign prostatic hyperplasia without lower urinary tract symptoms Category: Medical Qualifiers: Lower urinary tract symptom detail: urinary frequency Lower urinary tract symptom presence: symptoms present Qualified Code(s): N40.1 - Benign prostatic hyperplasia with lower urinary tract symptoms; R35.0 - Frequency of micturition Plan: Stable continue to monitor (5) GERD (gastroesophageal reflux disease): Code(s): K21.9 - Gastro-esophageal reflux disease without esophagitis Category: Medical Qualifiers: Esophagitis presence: without esophagitis Qualified Code(s): K21.9 - Gastro-esophageal reflux disease without esophagitis Plan: Avoid the foods that causes that usually spicy foods, tomato products, juices, coffee, soda and foods that your sensitive to. After eating do not lie down, allow 3-4 hours before in lie down. And keep the head of bed above 30 degrees to avoid the acid from going up. (6) Obesity (BMI 30-39.9): Code(s): E66.9 - Obesity, unspecified Category: Medical Plan: Diet and exercise (7) Aortic stenosis: Comment: Echocardiogram December 2023 1.49 cm Code(s): I35.0 - Nonrheumatic aortic (valve) stenosis Category: Medical Plan: Continue to monitor December do another echocardiogram. (8) GERD (gastroesophageal reflux disease): Code(s): K21.9 - Gastro-esophageal reflux disease without esophagitis Category: Medical Plan: Avoid the foods that causes that usually spicy foods, tomato products, juices, coffee, soda and foods that your sensitive to. After eating do not lie down, allow 3-4 hours before in lie down. And keep the head of bed above 30 degrees to avoid the acid from going up. On omeprazole Plan History of Present Illness The patient is a 59-year-old male presenting for a follow-up visit to manage multiple chronic conditions. He is obese and has a history of diabetes mellitus, essential hypertension, hypercholesterolemia, gastroesophageal reflux disease (GERD), and benign prostatic hyperplasia (BPH). The patient was last seen in March, and he has also been diagnosed with aortic stenosis following an echocardiogram in December 2023. He reports that his diabetes management is stable with a recent hemoglobin A1c of 6.3, which is within the goal of less t lawrence 6.5. The patient is on metformin for diabetes management. For his hypertension, the patient is currently on metoprolol, lisinopril, hydrochlorothiazide, and amlodipine, with recent concern regarding minor swelling, which may be medication-related. His last bloodwork indicated that LDL cholesterol was under control, with a previous checkup in November 2022 showing satisfactory results. The patient also reports controlled GERD symptoms currently managed with omeprazole. Lifestyle modifications, including diet and exercise, continue to be emphasized, considering the patient's history of obe sity. Health Maintenance - Updated echocardiogram planned for November - Negative Cologuard test in October 2022 - Tetanus vaccination administered today - Recommended shingles vaccine to be obtained from a pharmacy - Discussions regarding diet, including moderation of fruit, pasta, rice, and red meat consumption - Encouragement to maintain exercise routine Social History - Patient reports work history and having received new glasses through [employer] - Nutritional habits discussed with emphasis on reducing intake of high sugar foods, pasta, rice, and red meat - Patient does not consume cucumbers due to heartburn - Smoking or alcohol use not discussed Review of Systems - Cardiovascular: Denies chest pain. - Gastrointestinal: Reports occasional heartburn, denies significant discomfort. - Musculoskeletal: Denies current kidney stones. - Endocrine: Reports good control of blood sugar. - Dermatological: Denies any rash. - Ophthalmological: Reports getting new glasses. - Urological: Denies frequent urination. Physical Exam Results - Labs: Hemoglobin A1c today is 6.3. - Tests: Recent echocardiogram in December 2023 indicated aortic stenosis. - Screening: Cologuard negative in October 2022. Plan 1. 5. Hypertension is managed with a multi-drug regimen, ensuring close monitoring of side effects like edema. Hypercholesterolemia control is maintained through lifestyle interventions, aiming for an LDL cholesterol goal of under 100. GERD is managed with omeprazole, and the patient is reminded of the dietary modifications to prevent symptoms. An echocardiogram is planned to reassess the aortic stenosis in November. The patient received a tetanus booster today and is recommended to receive a shingles vaccine. Emphasis is placed on a balanced diet and regular exercise, with further cholesterol testing planned to evaluate current strategies.: Patient was informed and verbally consented to the use of an ambient scribe for clinic note documentation during this visit. Discussion Notes In today?s visit, I discussed the patient?s management of his chronic conditions, focusing on diabetes, hypertension, and hypercholesterolemia. I emphasized the importance of maintaining the A1c target and controlling blood pressure with current medications. We reviewed GERD management and encouraged dietary changes to mitigate symptoms. I explained the procedure for obtaining the shingles vaccine and the benefits of the tetanus shot administered today. The patient understood the instructions and agreed to monitor his symptoms and follow up with scheduled tests, acknowledging the importance of maintaining control over his lifestyle choices to manage weight and avoid symptom exacerbation. Patient Instructions - Continue taking metformin, blood pressure, and GERD medications as prescribed. - Obtain a shingles vaccine at the pharmacy. - Follow a balanced diet, limiting high sugar foods, pasta, rice, and red meat. - Engage in regular exercise to support weight management. - Attend the scheduled echocardiogram in November. - Report any new or worsening symptoms promptly. - Return for follow-up visit in three months or as advised. Orders: Orders AMB Hemoglobin A1c Today E11.65 - Type 2 diabetes mellitus with hyperglycemia Td State Immunization Today Z23 - Encounter for immunization
[2024-07-30 15:54] VITALS: BP 142/72; PULSE 92; TEMP 36.4; O2SAT 94; BMI 37.6
[2024-07-30 16:19] VITALS: BP 138/68
== END 2024-07-30 16:39 | disposition home or self-care (01) ==
LOC: HO.HMCH 15:43
PROVIDERS: PCP Internal Medicine; Visit Provider Internal Medicine
DX: E11.65 Type 2 diabetes mellitus with hyperglycemia (principal); E66.9 Obesity, unspecified; Z68.37 Body mass index [BMI] 37.0-37.9, adult; I10 Essential (primary) hypertension; E78.00 Pure hypercholesterolemia, unspecified; N40.1 Benign prostatic hyperplasia with lower urinary tract symptoms; R35.0 Frequency of micturition; K21.9 Gastro-esophageal reflux disease without esophagitis; I35.0 Nonrheumatic aortic (valve) stenosis; Z23 Encounter for immunization

== ENCOUNTER → 2024-07-30 15:42 | Outpatient (BNVA) | payer OTHER, SELFPAY | PROVIDERS: PCP Internal Medicine; Visit Provider Internal Medicine | DX: E11.65 Type 2 diabetes mellitus with hyperglycemia (principal); Z23 Encounter for immunization; I10 Essential (primary) hypertension; E78.00 Pure hypercholesterolemia, unspecified; N40.1 Benign prostatic hyperplasia with lower urinary tract symptoms; R35.0 Frequency of micturition; K21.9 Gastro-esophageal reflux disease without esophagitis; I35.0 Nonrheumatic aortic (valve) stenosis; E66.9 Obesity, unspecified; Z68.37 Body mass index [BMI] 37.0-37.9, adult; Z79.899 Other long term (current) drug therapy | CPT/HCPCS: 83036; 90471; 90714; 96127 ==

== ENCOUNTER 2024-11-10 21:10 | Emergency (ER) | payer OTHER, SELFPAY ==
--- NOTE | ~2024-11-10 | XR_ITS ---
CLINICAL HISTORY: pain 3 view, pelvis and left hip Comparison: CT/REG/SR - CT ABDOMEN PELVIS WO IV CON - 11/26/22 02:13 EDT Findings: The bones are intact. Mild degenerative changes are noted. Enthesopathy is noted. Metallic BB seen in the soft tissues of the lower left abdominal wall projecting adjacent to the left hip. IMPRESSION: No acute findings. This document has been electronically signed by: Horacio Hernandez MD on 11/11/2024 05:39:28
[2024-11-10 21:15] VITALS: BP 196/89; PULSE 102; RESP 20; TEMP 36.3; O2SAT 94; BMI 39.1
--- OUTSIDE RECORDS SUMMARY | 2024-11-11 00:35 | XMS_ITS | Patient Health Record ---
Author Organization [facility] Address [address] [place] [address] Care Team Providers Care Button Machine Operator Name Role Phone Po Nicki STEWART Primary Care Provider ePdro Mclain [phone] Allergies Allergen (clinical drug ingredient) Drug/Non Drug [...] Problem Status W/U Status Risk Notes Problem Screening for malignant neoplasm of colon (917524906) Encounter for screening for malignant neoplasm of colon (Z12.11) Active confirmed Problem Pre-procedure evaluation check (376387229) Encounter for other preprocedural examination (Z01.818) Active confirmed Problem Long-term current use of antiplatelet drug (736030654158263 ) prison (current) use of aspirin (Z79.82) Active confirmed Plan Of Treatment Future Test Test Name Order Date COLONOSCOPY 08/31/2021 Insurance Providers Payer Name Payer Address Payer Phone Subscriber Number Group Number Insured Name Patient Relationship to Insured Coverage Start Date Coverage End Date [employer] [place] [employer] [facility] [address] [place] [address] [id number] LESLYE GONZALEZ Self - patient is the insured Medical [...]
[2024-11-11 02:00] VITALS: BP 148/78; PULSE 93; RESP 18; TEMP 36.7; O2SAT 95
--- NOTE | 2024-11-11 02:54 | ED_ITS ---
HPI - Extremity Injury (Lower) General Chief Complaint: Extremity Injury, Lower Stated Complaint: pain in left leg Time Seen by Provider: 11/11/24 02:44 Source: patient Mode of arrival: ambulatory Limitations: no limitations History of Present Illness ED Provider: Dr. Stefania Ayon HPI Narrative: Patient comes to the emergency room complaining of left lateral upper thigh pain with movement. 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 If he is at rest, he has no pain. Patient denies any swelling or erythema. Lower extremity pain or swelling. Patient denies any recent trauma Related Data Previous Rx's ?Medication ?Instructions ?Recorded hydrochlorothiazide 12.5 mg tablet 12.5 mg PO DAILY #9 0 tabs 01/20/24 lisinopril 40 mg tablet 40 mg PO DAILY #90 tabs 03/31 08/22 metoprolol succinate 25 mg 25 mg PO DAILY #90 tabs tablet,extended release 24 hr metformin 500 mg tablet 500 mg PO BIDWMEAL #180 tabs 04/23/24 amlodipine 10 mg tablet 10 mg PO DAILY 90 days #90 t abs 06/14/24 omeprazole 20 mg capsule,delayed 20 mg PO DAILY #30 ca ps 06/30/24 release atorvastatin 40 mg tablet 40 mg PO DAILY #90 tabs 08/31 cyclobenzaprine 5 mg tablet 5 mg PO BID PRN muscle spa sm #10 11/11/24 tabs ketorolac 10 mg tablet 10 mg PO Q8H PRN pain #10 ta bs 11/11/24 Allergies Allergy/AdvReac Type Severity Reaction Status Date / Time codeine Allergy Unknown nausea and Verified 11/10/24 21:19 vomitting Review of Systems Review of Systems: Constitutional : No Weight loss, No Fever, No Chills, No Night Sweats, No Fatigue, No Malaise ENT/Mouth : No Hearing loss, No Ear Pain, No Nasal Congestion, No Sinus Pain, No Hoarseness, No sore throat, No Rhinorrhea, No Swallowing Difficulty Eyes: No Eye Pain, No Swelling, No Redness, No Foreign Body, No Discharge, No Vision Changes Cardiovascular : No Chest Pain, No SOB, No Dyspnea on Exertion, No Orthopnea, No Edema, No Palpitations Respiratory : No Cough, No Sputum, No Wheezing, No Smoke Exposure, No Dyspnea Gastrointestinal : No Nausea, No Vomiting, No Diarrhea, No Constipation, No abdominal Pain, No Hematochezia, No Melena Genitourinary : no irregular bleeding, No Dysuria, No Urinary Frequency, No Hematuria, No Urinary Incontinence, No Urgency, No Flank Pain, No Urinary Flow Changes, No Hesitancy Musculoskeletal : Complaining of pain in the lateral aspect of the left thigh with movement, No Myalgias, No Joint Swelling Skin : No Skin Lesions, No rash Neuro : No Weakness, No Numbness, No Paresthesias, No Loss of Consciousness, No Dizziness, No Headache Psych : No Anxiety/Panic, No Depression, No SI/HI/AH/VH, No Social Issues, Heme/Lymph: No Bruising, No Bleeding,No Lymphadenopathy Endocrine : No Polyuria, No Polydipsia, No Temperature Intolerance [facility] Past Medical History Medical History Hypertension Closed fracture of right distal fibula History of renal calculi Gout Diabetic nephropathy Chronic kidney disease (CKD) stage G1/A1, glomerular filtration rate (GFR) equal to or greater than 90 mL/min/1.73 square meter and albuminuria creatinine ratio less than 30 mg/g Obesity (BMI 30-39.9) Type 2 diabetes mellitus with hyperglycemia Hypercholesterolemia BPH (benign prostatic hyperplasia) GERD (gastroesophageal reflux disease) Hypertension Vitamin D deficiency Surgical History History of prostate surgery S/P TURP Family History Family History Father Bladder cancer Mother Breast cancer Maternal Uncle Myocardial infarction Brother Alzheimers disease Other Mental health disorder Social History Social History Housing: Condominium Alcohol intake: current Comment: 1 beer once a week Patient Tobacco Use Status: Never used Tobacco Tobacco use type: Cigarette e-Cigarette/Vaping Use: Never Used Second Hand Smoke Exposure: No Advance Directives: No Advance Directives Information Provided: Yes Do you have a plan to hurt others: No Plan service: No Current occupational status: employed Current occupational exposures/hazards: No Cognitive needs: No Hearing needs: Yes (hearing aids) Vision needs: Yes (glasses ) Physical Exam Exam: Exam: Appearance: Alert. Oriented X3. No acute distress. Eyes: Pupils equal, round and reactive to light. ENT: Pharynx normal. Neck: Normal inspection. Neck supple. No lymph nodes noted. No crepitus CVS: Normal heart rate and rhythm. Pulses normal. Normal S1 and S2 Respiratory: No respiratory distress. Breath sounds normal. No Wheezing. No rales Abdomen: Soft and nontender. No rigidity. No distention. Skin: Skin warm and dry. Normal skin color. Normal skin turgor. Extremities: No lower extremity edema. No Lacerations. No Rash, appearance of leg looks normal, no erythema, no ecchymosis. No pain to palpation in any areas of the leg, no calf swelling. Negative straight leg raise test, patient has isadora n on the lateral aspect of the left leg when with the abduction of the left lower extremity Neuro: Oriented X 3. No motor deficit. No sensory deficit. Moving all extremities. No slurred speech. CN 2 through 12 grossly intact Psych: calm, cooperative, normal affect Vital Signs: Vital Signs: Last Vital Signs Temp 98.5 F 11/11/24 04:11 Pulse 84 11/11/24 04:11 Resp 18 11/11/24 04:11 BP 122/65 11/11/24 04:11 Pulse Ox 93 11/11/24 04:11 O2 Del Method Room Air 11/11/24 04:11 BMI result Body Mass Index 39.1 Course Course Course Narrative: Patient able to walk but hurts doing so, uses a cane at baseline. No trauma. Patient states that ibuprofen is not helping much, patient requesting an IM injection, patient was given Toradol. X-rays pending Medications Administered Discontinued Medications Generic Name Dose Route Start Last Admin Trade Name Freq PRN Reason Stop Dose Admin Ketorolac Tromethamine 60 mg 11/11/24 02:53 11/11/24 03:52 Ketorolac Tromethamine 60 Mg/2 Ml Vial IM 11/11/24 02:54 60 mg ONCE ONE Administration Medical Decision Making Medical Decision Making [facility] Narrative: I discussed the physical exam with the patient, it is likely that it is likely that he has musculoskeletal pain, likely ITP band pain. There is no redness, no swelling, no signs of DVT at this time. X-rays did not show any acute abnormality, patient likely having musculoskeletal pain. Differential Diagnosis Differential Diagnoses: The differential diagnosis associated with the presentation includes (IT band pain, hip contusion, dislocation, sciatica) Independent Interpretation I performed an independent interpretation of an: Plain X-Ray Radiology Impression Discussion of test interpretation with radiology: I have reviewed the radiologist's reading. Radiologist Impression: The bones are intact. Mild degenerative changes are noted. Enthesopathy is noted. Metallic BB seen in the soft tissues of the lower left abdominal wall projecting adjacent to the left hip. IMPRESSION: No acute findings. Discharge Plan Discharge Clinical Impression: Musculoskeletal leg pain Patient Disposition: Home, Self-Care Instructions: Leg Pain (ED) Additional Instructions: Please follow-up with your primary care physician tomorrow. If you have any worsening or new symptoms, please return to the emergency room or call 911 Prescriptions: New ketorolac 10 mg tablet 10 mg PO Q8H PRN (Reason: pain) Qty: 10 0RF Rx Instructions: Do not use NSAIDs with this medication, only Tylenol if needed cyclobenzaprine 5 mg tablet 5 mg PO BID PRN (Reason: muscle spasm) Qty: 10 0RF No Action lisinopril 40 mg tablet 40 mg PO DAILY Qty: 90 2RF metoprolol succinate 25 mg tablet extended release 24 hr 25 mg PO DAILY Qty: 90 2RF amlodipine 10 mg tablet 10 mg PO DAILY 90 Days Qty: 90 1RF omeprazole 20 mg capsule,delayed release(DR/EC) 20 mg PO DAILY Qty: 30 2RF atorvastatin 40 mg tablet 40 mg PO DAILY Qty: 90 2RF hydrochlorothiazide 12.5 mg tablet 12.5 mg PO DAILY Qty: 90 3RF metformin 500 mg tablet 500 mg PO BIDWMEAL Qty: 180 3RF Print Language: Kazakh
[2024-11-11 04:11] VITALS: BP 122/65; PULSE 84; RESP 18; TEMP 36.9; O2SAT 93
[2024-11-11 05:55] VITALS: BP 128/74; PULSE 84; RESP 18; TEMP 36.6; O2SAT 94
[2024-11-11 06:08] VITALS: BP 128/74; PULSE 84; RESP 18; TEMP 36.6; O2SAT 94
== END 2024-11-11 06:08 | disposition home or self-care (01) ==
PROVIDERS: Emergency Provider Emergency Medicine; PCP Internal Medicine
DX: M25.552 Pain in left hip (principal); M79.652 Pain in left thigh; M79.605 Pain in left leg
CPT/HCPCS: 73502; 96372; 99283; 99284; J1885

== ENCOUNTER → 2024-11-11 02:53 | Outpatient (BNV) | payer OTHER, SELFPAY | PROVIDERS: Emergency Provider Emergency Medicine; PCP Internal Medicine; Visit Provider Radiology Diagnostic Radiology | DX: M16.12 Unilateral primary osteoarthritis, left hip (principal) | CPT/HCPCS: 73502 ==

== ENCOUNTER 2024-11-23 15:41 | Outpatient (AMB) | payer OTHER, SELFPAY ==
--- NOTE | 2024-11-23 15:44 | MHC.PC.OV ---
Vital Signs 11/23/24 15:45 Height 5 ft 8 in Weight 257 lb BMI 39.1 BP 140/78 H Blood Pressure Location Lt brachial Position Sitting Pulse 94 Pulse Source Pulse Oximeter Temp 97.1 F Temp Source Temporal Artery Scan Pulse Oximetry (%) 96 Oxygen Delivery Method Room Air Intake Visit Reasons: DM, HTN 3 mnth f/u Intake Note: Patient is here to follow up on HTN, DM. Chess Instructor Required: No Jig Grinder: Not Required per policy Accompanied by: Self / Same As Patient Allergies codeine Allergy (Unknown, Verified 11/23/24 15:45) nausea and vomitting Medication List - Last Reconciled 11/23/24 by Nicki Haddad MD amlodipine 10 mg PO DAILY 90 days atorvastatin 40 mg PO DAILY empagliflozin (Jardiance) 10 mg PO DAILY hydrochlorothiazide 12.5 mg PO DAILY lisinopril 40 mg PO DAILY metformin 500 mg PO BIDWMEAL metoprolol succinate ER 50 mg PO DAILY omeprazole 20 mg PO DAILY Tobacco use date assessed: 11/23/24 Dental Screening Dental Screen Date: 04/23/24 [facility] Medical History Hypertension Closed fracture of right distal fibula History of renal calculi Gout Diabetic nephropathy Chronic kidney disease (CKD) stage G1/A1, glomerular filtration rate (GFR) equal to or greater than 90 mL/min/1.73 square meter and albuminuria creatinine ratio less than 30 mg/g Obesity (BMI 30-39.9) Type 2 diabetes mellitus with hyperglycemia Hypercholesterolemia BPH (benign prostatic hyperplasia) GERD (gastroesophageal reflux disease) Hypertension Vitamin D deficiency Surgical History History of prostate surgery S/P TURP Family History Father Bladder cancer Mother Breast cancer Maternal Uncle Myocardial infarction Brother Alzheimers disease Other Mental health disorder Social History Housing: Condominium Alcohol intake: current Comment: 1 beer once a week Patient Tobacco Use Status: Never used Tobacco Tobacco use type: Cigarette e-Cigarette/Vaping Use: Never Used Second Hand Smoke Exposure: No service: No Current occupational status: employed Current occupational exposures/hazards: No Cognitive needs: No Hearing needs: Yes (hearing aids) Vision needs: Yes (glasses ) Questionnaire Thrive Questionnaire Date Thrive assessed: 07/30/24 I am a: Patient What is your living situation today?: I have a steady place to live Within the past 12 months, did the food you bought not last and you didn't have the money to get more?: Often true Within the past 12 months, did you worry whether your food would run out before you got money to buy more?: I choose not to answer this question Do you have trouble paying for medicines?: No Do you have trouble getting transportation to medical appointments?: No Do you have trouble paying your heating and electricity bill?: No Do you have trouble taking care of your child, family member or friend?: No Do you have trouble with day-to-day activities such as bathing, preparing meals, shopping, managing finances, etc.?: No Are you currently unemployed and looking for a job?: No Are you interested in more education?: No Please select the resources that you would like help with: None Currently or been in a relationship where the following occur: I choose not to answer THRIVE Score: 1 AUDIT C Alcohol Use Questionnaire (AUDIT-C) 1. How often do you have a drink containing alcohol?: Never Total Score: 0 KRYSTAL-7 AMB Questionnaire KRYSTAL-7 Date KRYSTAL - 7 assessed: 11/23/24 Feeling nervous, anxious, or on edge: 0 = Not at all Not being able to stop or control worryin = Not at all Worrying too much about different things: 0 = Not at all Trouble relaxin = Several days Being so restless that it is hard to sit still: 0 = Not at all Becoming easily annoyed or irritable: 0 = Not at all Feeling afraid as if something awful might happen: 0 = Not at all Total KRYSTAL-7 score (0-4 normal; 5-9 mild; 10-14 moderate; 15-21 severe): 1 Source: Developed by Drs. Pedro Markham, Yani Rivas, Krunal Green and colleagues, with an educational yunier from [employer]. Physical exam (Primary Care) Vital Signs: Last Vital Signs Temp 97.1 F 11/23/24 15:45 Pulse 94 11/23/24 15:45 BP 140/78 H 11/23/24 15:45 Pulse Ox 96 11/23/24 15:45 Oxygen Delivery Method Room Air 11/23/24 15:45 BMI result Body Mass Index 39.1 Tobacco/Smoking Status: Tobacco use Status Tobacco use date assessed 11/23/24 11/23/24 15:57 Patient Tobacco Use Status Never used Tobacco 11/23/24 15:57 Tobacco use type Cigarette 11/23/24 15:57 e-Cigarette/Vaping Use Never Used 11/23/24 15:57 Thrive Assessment: Date of Thrive Assessment Date Thrive assessed 07/30/24 11/23/24 15:57 Currently or been in a relationship where the following occur: I choose not to answer Const General: alert; No acute distress Eyes Conjunctivae: conjunctivae normal Resp Auscultation: clear to auscultation bilaterally Cardio Rate: regular rate Rhythm: regular rhythm GI Inspection: Yes normal to inspection Extrem General: Yes normal to inspection and No edema Results AMB Hemoglobin A1c AMB Hemoglobin A1c 7.6 % Last Edit by MAITE Mark on 11/23/24 16:03 Results Reviewed Results Reviewed: Laboratory Last Values Hgb A1c (Clinic) 7.6 % (4.0-6.0) H 11/23/24 15:43 Coding Level of Care Code Est Pt Level 4 (45754) Complex EM visit Add On G2211 Diagnoses Type 2 diabetes mellitus with hyperglycemia, without long-term current use of insulin E11.65 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 Evans Code(s): E11.65 - Type 2 diabetes mellitus with hyperglycemia Category: Medical Qualifiers: Diabetes mellitus longterm insulin use: without termite treater use Qualified Code(s): E11.65 - Type 2 diabetes mellitus with hyperglycemia Plan: Decrease the amount of carbohydrate intake, pasta, bread, rice and potatoes are all sugar and that is aside from all the sweet stuff, remember that fruits are good but they are Sweet also. Hemoglobin A1c goal of less than 6.5 patient is on metformin 500 mg twice a day (2) Obesity (BMI 30-39.9): Code(s): E66.9 - Obesity, unspecified Category: Medical Plan: Diet and exercise (3) Hypertension: Code(s): I10 - Essential (primary) hypertension Category: Medical Qualifiers: Hypertension type: essential hypertension Qualified Code(s): I10 - Essential (primary) hypertension Plan: Continue with blood pressure medication. Decrease salt intake and exercise on metoprolol 25 mg once a day lisinopril 40 mg once a day hydrochlorothiazide 12.5 mg once a day and amlodipine 10 mg once a day (4) Hypercholesterolemia: Code(s): E78.00 - Pure hypercholesterolemia, unspecified Category: Medical Plan: Avoid fried foods, chicken skin, eggs, butter margarine, pastries and meat. Be it pork or beef they have a lot of cholesterol LDL goal of less than 100 and triglyceride of less than 150 on atorvastatin 40 mg once a day patient needs blood work (5) Aortic stenosis: Comment: Echocardiogram December 2023 1.49 cm Code(s): I35.0 - Nonrheumatic aortic (valve) stenosis Category: Medical Plan: Continue to monitor (6) GERD (gastroesophageal reflux disease): Code(s): K21.9 - Gastro-esophageal reflux disease without esophagitis Category: Medical Qualifiers: Esophagitis presence: without esophagitis Qualified Code(s): K21.9 - Gastro-esophageal reflux disease without esophagitis Plan: Avoid the foods that causes that usually spicy foods, tomato products, juices, coffee, soda and foods that your sensitive to. After eating do not lie down, allow 3-4 hours before in lie down. And keep the head of bed above 30 degrees to avoid the acid from going up. Plan History of Present Illness The patient is a 59-year-old male presenting for a follow-up visit for management of chronic conditions including diabetes mellitus, hypertension, and hypercholesterolemia. The patient has a history of diabetes mellitus and is currently on metformin 500 mg twice a day with a hemoglobin A1c goal of less than 6.5%. He is advised to maintain diet and exercise to manage his condition. The patient also has hypertension and is on a regimen of metoprolol 25 mg once a day, lisinopril 40 mg once a day, hydrochlorothiazide 12.5 mg once a day, and amlodipine 10 mg once a day. His blood pressure management is ongoing with these medications. For hypercholesterolemia, the patient is on atorvastatin 40 mg once a day with an LDL goal of less than 100 mg/dL and triglycerides less than 150 mg/dL. He needs to have blood work done to monitor these levels. The patient has a history of aortic stenosis, with the last echocardiogram conducted in December 2023. He also has a history of gastroesophageal reflux disease, cholelithiasis, and nephrolithiasis. The patient was previously hospitalized for leg pain, which was diagnosed as musculoskeletal pain after a negative X-ray. Preventative care includes a colon cancer screening with a Cologuard test conducted in October 2022. Health Maintenance - Colon cancer screening with Cologuard test conducted in October 2022 Social History Review of Systems Physical Exam Results Plan Patient was informed and verbally consented to the use of an ambient scribe for clinic note documentation during this visit. 1. Diabetes Mellitus The patient is on metformin 500 mg twice a day with a hemoglobin A1c goal of less than 6.5%. Diet and exercise are recommended to manage the condition. 2. Hypertension The patient is on metoprolol 25 mg once a day, lisinopril 40 mg once a day, hydrochlorothiazide 12.5 mg once a day, and amlodipine 10 mg once a day for blood pressure management. 3. Hypercholesterolemia The patient is on atorvastatin 40 mg once a day with an LDL goal of less than 100 mg/dL and triglycerides less than 150 mg/dL. Blood work is needed to monitor these levels. 4. Preventative Care: Colon Cancer Screening A Cologuard test was conducted in October 2022 as part of colon cancer screening. Discussion Notes Patient Instructions Orders: Orders AMB Hemoglobin A1c Today E11.65 - Type 2 diabetes mellitus with hyperglycemia Complete Blood Count Auto Diff Today E11.65 - Type 2 diabetes mellitus with hyperglycemia Comprehensive Met. Panel Today E11.65 - Type 2 diabetes mellitus with hyperglycemia Thyroid Stimulating Hormone Today E11.65 - Type 2 diabetes mellitus with hyperglycemia Creatinine Urine Today E11.65 - Type 2 diabetes mellitus with hyperglycemia Microalbumin, Random (w Creat) Today E11.65 - Type 2 diabetes mellitus with hyperglycemia Prostate Specific Antigen Scr Today E11.65 - Type 2 diabetes mellitus with hyperglycemia Free T4 (Free Thyroxine) Today E11.65 - Type 2 diabetes mellitus with hyperglycemia Lipid Panel Today E11.65 - Type 2 diabetes mellitus with hyperglycemia, E78.00 - Pure hypercholesterolemia, unspecified Vitamin B12 and Folate Today E11.65 - Type 2 diabetes mellitus with hyperglycemia Vitamin D 25-OH Total Today E11.65 - Type 2 diabetes mellitus with hyperglycemia Hemoglobin A1c Today E11.65 - Type 2 diabetes mellitus with hyperglycemia Medications: New empagliflozin (Jardiance) 10 mg PO DAILY 90 tabs 3RF E11.65 - Type 2 diabetes mellitus with hyperglycemia Changed From metoprolol succinate ER 25 mg PO DAILY 90 tabs 2RF I10 - Essential (primary) hypertension To metoprolol succinate ER 50 mg PO DAILY 90 tabs 3RF I10 - Essential (primary) hypertension
[2024-11-23 15:45] VITALS: BP 140/78; PULSE 94; TEMP 36.2; O2SAT 96; BMI 39.1
--- OUTSIDE RECORDS SUMMARY | 2024-11-23 16:30 | XMS_ITS | Patient Health Record ---
Author Organization [facility] Address [address] [place] [id number] Care Team Providers Care Food Sanitarian Name Role Phone Po Nicki STEWART Primary Care Provider Pedro Mclain [phone] Allergies Allergen (clinical drug ingredient) Drug/Non Drug [...] Problem Screening for malignant neoplasm of colon (171536938) Encounter for screening for malignant neoplasm of colon (Z12.11) Active confirmed Problem Pre-procedure evaluation check (904922694) Encounter for other preprocedural examination (Z01.818) Active confirmed Problem Long-term current use of antiplatelet drug ([id number] ) MCC (current) use of aspirin (Z79.82) Active confirmed Plan Of Treatment Future Test Test Name Order Date COLONOSCOPY 08/31/2021 Insurance Providers Payer Name Payer Address Payer Phone Subscriber Number Group Number Insured Name Patient Relationship to Insured Coverage Start Date Coverage End Date [employer] [place] [employer] [facility] [address] [place] [address] [id number] LESLYE GONZALEZ Self - patient is the [...]
--- OUTSIDE RECORDS SUMMARY | 2024-11-23 16:30 | XMS_ITS | Clinical Summary ---
Author Organization [facility], Address [address] [place] [address] [place] [address] Phone Care Team Providers Care Acid Strength Inspector Name Role Phone Nicki Haddad MD Primary Care Provider [phone] Allergies No known active allergies Medications amLODIPine [...] of 1 - PCV) 07/06/2013 Influenza Vaccine (#1) 2024 Hepatitis B Vaccine Aged Out No longe r eligible based on patient's age to complete this topic Insurance [facility] Care Teams Acid Strength Inspector Relationship Specialty Start Date End Date Nicki Haddad MD [facility] [address] [place], [place] PCP - General Internal Medicine 09/21/21
== END 2024-11-23 16:28 | disposition home or self-care (01) ==
LOC: HO.HMCH 15:42
PROVIDERS: PCP Internal Medicine; Visit Provider Internal Medicine
DX: E11.65 Type 2 diabetes mellitus with hyperglycemia (principal); E66.9 Obesity, unspecified; Z68.39 Body mass index [BMI] 39.0-39.9, adult; I10 Essential (primary) hypertension; E78.00 Pure hypercholesterolemia, unspecified; I35.0 Nonrheumatic aortic (valve) stenosis; K21.9 Gastro-esophageal reflux disease without esophagitis

== ENCOUNTER → 2024-11-23 15:41 | Outpatient (BNVA) | payer OTHER, SELFPAY | PROVIDERS: PCP Internal Medicine; Visit Provider Internal Medicine | DX: E11.65 Type 2 diabetes mellitus with hyperglycemia (principal); I10 Essential (primary) hypertension; E66.9 Obesity, unspecified; E78.00 Pure hypercholesterolemia, unspecified; I35.0 Nonrheumatic aortic (valve) stenosis; K21.9 Gastro-esophageal reflux disease without esophagitis; Z68.39 Body mass index [BMI] 39.0-39.9, adult | CPT/HCPCS: 83036; 96127 ==

== ENCOUNTER 2024-12-25 07:57 | Outpatient (REF) | payer OTHER, SELFPAY ==
--- OUTSIDE RECORDS SUMMARY | 2024-12-25 07:59 | XMS_ITS | Patient Health Record ---
Author Organization [facility] Address [address] [place] [phone] Care Team Providers Care Stick Welder Name Role Phone Po Nicki STEWART Primary Care Provider Pedro Mclain [phone] Allergies Allergen (clinical drug ingredient) Drug/Non Drug [...] Problem Screening for malignant neoplasm of colon (595369255) Encounter for screening for malignant neoplasm of colon (Z12.11) Active confirmed Problem Pre-procedure evaluation check (119571483) Encounter for other preprocedural examination (Z01.818) Active confirmed Problem Long-term current use of antiplatelet drug ([id number] ) halfway (current) use of aspirin (Z79.82) Active confirmed Plan Of Treatment Future Test Test Name Order Date COLONOSCOPY 08/31/2021 Insurance Providers Payer Name Payer Address Payer Phone Subscriber Number Group Number Insured Name Patient Relationship to Insured Coverage Start Date Coverage End Date [employer] [facility] [address] [place] [address] [id number] LESLYE GONZALEZ Self - patient is the [...]
--- OUTSIDE RECORDS SUMMARY | 2024-12-25 07:59 | XMS_ITS | Clinical Summary ---
Author Organization [facility], Address [address] [place] [address] [place] [address] Phone Care Team Providers Care Program Coordinator For Residence Life Name Role Phone Nicki Haddad MD Primary Care Provider [phone] Allergies No known active allergies Medications amLODIPine [...] patient's age to complete this topic Insurance [facility] Care Teams Program Coordinator For Residence Life Relationship Specialty Start Date End Date Nicki Haddad MD [facility] [address] [place], [place] PCP - General Internal Medicine 09/21/21
[2024-12-25 08:35] LABS: MANUAL DIFF FLAG NO
[2024-12-25 08:52] LABS: Hematocrit 41.8 % (42.0-52.0); Hemoglobin 14.2 g/dl (14.0-18.0); Imm Gran Abs Auto 0.03 X10*3/uL (0.00-0.03); Imm Gran Pct Auto 0.4 % (0.0-0.4); Lymphocytes Absolute Auto 1.5 X10*3/uL (1.2-4.9); Mean Corpuscular HGB Conc 34.0 g/dl (31.0-36.0); Mean Corpuscular Hemoglobin 27.1 pg (27.0-33.0); Mean Corpuscular Volume 79.8 fL (80.0-98.0); NRBC Abs Auto 0.000 X10*3/uL (0.0-0.012); NRBC Pct Auto 0.0 /100WBC (0.0-0.2); Platelet Count 268 X10*3/uL (160-400); Red Blood Count 5.24 X10*6/uL (4.60-5.80); White Blood Count 8.1 X10*3/uL (4.8-10.8)
[2024-12-25 09:30] LABS: Alanine Aminotransferase 21 U/L (0-40); Albumin Level 4.2 g/dL (3.5-5.0); Alkaline Phosphatase 120 U/L (39-117); Anion Gap 13 (12-20); Aspartate Amino Transferase 18 U/L (5-37); Blood Urea Nitrogen 16 mg/dL (9-16); Calcium 9.8 mg/dL (8.4-10.2); Carbon Dioxide 29 mmol/L (22-29); Chloride 102 mmol/L (96-108); Cholesterol 167 mg/dL (<200); Estimated Glomerular Filt Rate > 60; HDL Cholesterol 31 mg/dL (>40); Potassium 4.5 mmol/L (3.3-5.1); Sodium 139 mmol/L (135-145); Total Protein 7.2 g/dL (6.5-8.0); Triglycerides 147 mg/dL (<150)
[2024-12-25 10:00] LABS: Microalbum/Creatinine Ratio Ur 1252.6 ug/mg cr (<30)
[2024-12-25 10:02] LABS: Folate 9.8 ng/mL (> or = 4.0); Vitamin B12 417 pg/mL (200-900)
[2024-12-25 10:03] LABS: Free T4 (Free Thyroxine) 1.01 ng/dL (0.71-1.85); Thyroid Stimulating Hormone 0.73 uIU/mL (0.32-4.0)
== END 2024-12-25 07:58 | disposition home or self-care (01) ==
LOC: HO.LAB 07:57
PROVIDERS: PCP Internal Medicine; Visit Provider Internal Medicine
DX: Z12.5 Encounter for screening for malignant neoplasm of prostate (principal); Z13.21 Encounter for screening for nutritional disorder; E11.65 Type 2 diabetes mellitus with hyperglycemia; E78.00 Pure hypercholesterolemia, unspecified
CPT/HCPCS: 36415; 80053; 80061; 82043; 82306; 82570; 82607; 82746; 83036; 84153; 84439; 84443; 85025

== ENCOUNTER 2025-01-21 16:14 | Outpatient (AMB) | payer OTHER, SELFPAY ==
--- NOTE | 2025-01-21 16:15 | A.OFFPC_ITS ---
Vital Signs 01/21/25 16:16 Height 5 ft 8 in Weight 250 lb 4 oz BMI 38.0 BP 148/80 H Blood Pressure Location Lt brachial Position Sitting Pulse 92 Pulse Source Pulse Oximeter Temp 97.3 F Temp Source Temporal Artery Scan Pulse Oximetry (%) 96 Oxygen Delivery Method Room Air Intake Visit Reasons: annual exam Allergies codeine Allergy (Unknown, Verified 01/21/25 16:20) nausea and vomitting Medication List - Last Reconciled 01/21/25 by Nicki Haddad MD amlodipine 10 mg PO DAILY 90 days atorvastatin 40 mg PO DAILY empagliflozin (Jardiance) 10 mg PO DAILY hydrochlorothiazide 12.5 mg PO DAILY lisinopril 40 mg PO DAILY metformin 500 mg PO BIDWMEAL metoprolol succinate ER 50 mg PO DAILY omeprazole 20 mg PO DAILY Tobacco use date assessed: 01/21/25 Dental Screening Dental Screen Date: 01/21/25 Did you have a dental visit in the last 12 months?: Yes Did you have a dental problem in the last 6 months where you did not have access to dental care?: No Was dental information given to patient?: Patient has dentist [facility] Medical History (Updated 01/21/25 @ 16:20 by Nicki Haddad MD) Colon cancer screening GERD (gastroesophageal reflux disease) Hypertension Closed fracture of right distal fibula History of renal calculi Gout Diabetic nephropathy Chronic kidney disease (CKD) stage G1/A1, glomerular filtration rate (GFR) equal to or greater than 90 mL/min/1.73 square meter and albuminuria creatinine ratio less than 30 mg/g Obesity (BMI 30-39.9) Type 2 diabetes mellitus with hyperglycemia Hypercholesterolemia BPH (benign prostatic hyperplasia) GERD (gastroesophageal reflux disease) Hypertension Vitamin D deficiency Surgical History History of prostate surgery S/P TURP Family History Father Bladder cancer Mother Breast cancer Maternal Uncle Myocardial infarction Brother Alzheimers disease Other Mental health disorder Social History (Updated 01/21/25 @ 16:28 by Nicki Haddad MD) Housing: [facility] Alcohol intake: current Comment: , wine cooler once a day weekends Patient Tobacco Use Status: Never used Tobacco Tobacco use type: Cigarette e-Cigarette/Vaping Use: Never Used Second Hand Smoke Exposure: No service: No Current occupational status: employed Current occupational exposures/hazards: No Cognitive needs: No Hearing needs: Yes (hearing aids) Vision needs: Yes (glasses ) Questionnaire PHQ-9 Over the last 2 weeks, how often have you been bothered by any of the following problems? 1. Little interest or pleasure in doing things: nearly every day 2. Feeling down, depressed, or hopeless: not at all 3. Trouble falling or staying asleep, or sleeping too much: several days 4. Feeling tired or having little energy: several days 5. Poor appetite or overeating: not at all 6. Feeling bad about yourself - or that you are a failure or have let yourself or your family down: not at all 7. Trouble concentrating on things, such as reading the newspaper or watching television: several days 8. Moving or speaking so slowly that other people could have noticed. Or the opposite - being so fidgety or restless that you have been moving around a lot more than usual: several days 9. Thoughts that you would be better off or of hurting yourself in some way: several days Total score: 8 Depression Screening Interpretation: Positive Depression Screening Done: Yes Source: Developed by Drs. Pedro Markham, Yani Rivas, Krunal Green and colleagues, with an educational yunier from [employer]. Thrive Questionnaire Date Thrive assessed: 07/30/24 I am a: Patient What is your living situation today?: I have a steady place to live Within the past 12 months, did the food you bought not last and you didn't have the money to get more?: Often true Within the past 12 months, did you worry whether your food would run out before you got money to buy more?: I choose not to answer this question Do you have trouble paying for medicines?: No Do you have trouble getting transportation to medical appointments?: No Do you have trouble paying your heating and electricity bill?: No Do you have trouble taking care of your child, family member or friend?: No Do you have trouble with day-to-day activities such as bathing, preparing meals, shopping, managing finances, etc.?: No Are you currently unemployed and looking for a job?: No Are you interested in more education?: No Please select the resources that you would like help with: None Currently or been in a relationship where the following occur: I choose not to answer THRIVE Score: 1 AUDIT C Alcohol Use Questionnaire (AUDIT-C) 1. How often do you have a drink containing alcohol?: Never 3. How often do you have six or more drinks on one occasion?: Never Total Score: 0 KRYSTAL-7 AMB Questionnaire KRYSTAL-7 Date KRYSTAL - 7 assessed: 11/23/24 Feeling nervous, anxious, or on edge: 0 = Not at all Not being able to stop or control worryin = Not at all Worrying too much about different things: 0 = Not at all Trouble relaxin = Several days Being so restless that it is hard to sit still: 0 = Not at all Becoming easily annoyed or irritable: 0 = Not at all Feeling afraid as if something awful might happen: 0 = Not at all Total KRYSTAL-7 score (0-4 normal; 5-9 mild; 10-14 moderate; 15-21 severe): 1 Source: Developed by Drs. Pedro Markham, Yani Rivas, Krunal Green and colleagues, with an educational yunier from [employer]. Review of Systems Const Denies poor appetite and Denies weakness Eyes Denies no additional complaints ENT Reports Normal hearing present, Denies dizziness, Denies nasal congestion, Denies tinnitus and Denies sore throat Card Denies chest pain, Denies syncope, Denies rapid heart rate and Denies dyspnea Resp Denies cough and Denies dyspnea GI Denies change in stool character, Reports constipation, Denies diarrhea, Denies nausea and Denies vomiting Denies dysuria and Denies urinary frequency Neuro Reports Normal hearing present, Denies confusion, Denies dizziness, Denies syncope and Denies weakness Psych Denies confusion Physical exam (Primary Care) Vital Signs: Last Vital Signs Temp 97.3 F 01/21/25 16:16 Pulse 92 01/21/25 16:16 BP 148/80 H 01/21/25 16:16 Pulse Ox 96 01/21/25 16:16 Oxygen Delivery Method Room Air 01/21/25 16:16 BMI result Body Mass Index 38.0 Tobacco/Smoking Status: Tobacco use Status Tobacco use date assessed 11/23/24 11/23/24 15:57 Patient Tobacco Use Status Never used Tobacco 11/23/24 15:57 Tobacco use type Cigarette 11/23/24 15:57 e-Cigarette/Vaping Use Never Used 11/23/24 15:57 Depression Screening Interpretation: Positive Thrive Assessment: Date of Thrive Assessment Date Thrive assessed 07/30/24 11/23/24 15:57 Currently or been in a relationship where the following occur: I choose not to answer Const General: No confusion Orientation/consciousness: No confusion HENMT Head: Yes normocephalic Ears: external ears normal and TM's normal bilaterally Face and sinus: Yes normal facial exam Mouth: moist mucous membranes Throat: Yes tonsils normal Eyes Conjunctivae: conjunctivae normal Pupils: Equal, round and reactive pupils present and Pupil accommodation reflex normal Direct Ophthalmoscopy: normal light reflex Neck Neck: No lymphadenopathy Thyroid: Thyroid normal Chest Chest palpation & inspection: normal inspection of the chest Resp Effort & Inspection: normal respiratory effort and no audible wheezes Auscultation: clear to auscultation bilaterally, no crackles, no wheezes and lung sounds not diminished Cardio Rate: regular rate Rhythm: regular rhythm Peripheral pulses: radial pulses present and dorsalis pedis present GI Other: declined Palpation (GI): no masses Auscultation: normal bowel sounds and normoactive bowel sounds Rectal Exam - Male: Yes deferred Other: declined Skin General skin exam: no rashes or lesions noted Rashes: no rashes Neuro General: No confusion Cranial nerves: Yes Equal, round and reactive pupils present and Yes Normal hearing present Cognition (Neuro): normal cognition Gait exam (Neuro): Normal gait present Motor exam (neuro): 5/5 motor strength present throughout Deep tendon reflexes (DTR's): Right brachioradialis reflex intensity grade: 2+, Left brachioradialis reflex intensity grade: 2+, Right patellar reflex intensity grade: 2+ and Left patellar reflex intensity grade: 2+ Extrem Other: 1 + edema of legs General: No edema Coding Level of Care Code Est Pt Prev Care 40-64y(06718) Diagnoses Annual physical exam Z00.00 Benign prostatic hyperplasia with urinary frequency N40.1; R35.0 Lower urinary tract symptom detail: urinary frequency Lower urinary tract symptom presence: symptoms present Type 2 diabetes mellitus with hyperglycemia, without long-term current use of insulin E11.65 Diabetes mellitus terminal makeup operator insulin use: without terminal makeup operator use Essential hypertension I10 Hypertension type: essential hypertension Hypercholesterolemia E78.00 Obesity (BMI 30-39.9) E66.9 Gastroesophageal reflux disease without esophagitis K21.9 Esophagitis presence: without esophagitis Assessment & Plan Assessment & Plan (1) Annual physical exam: Code(s): Z00.00 - Encounter for general adult medical examination without abnormal findings Category: Medical Plan: Patient is advised to eat healthy, keep well hydrated, keep active and have adequate sleep. (2) BPH (benign prostatic hyperplasia): Code(s): N40.0 - Benign prostatic hyperplasia without lower urinary tract symptoms Category: Medical Qualifiers: Lower urinary tract symptom detail: urinary frequency Lower urinary tract symptom presence: symptoms present Qualified Code(s): N40.1 - Benign prostatic hyperplasia with lower urinary tract symptoms; R35.0 - Frequency of micturition Plan: Decrease the amount of carbohydrate intake, pasta, bread, rice and potatoes are all sugar and that is aside from all the sweet stuff, remember that fruits are good but they are Sweet also. Presently on Jardiance at 10 mg once a day and metformin 500 mg twice a day (3) Type 2 diabetes mellitus with hyperglycemia: Comment: Dr. Evasn Code(s): E11.65 - Type 2 diabetes mellitus with hyperglycemia Category: Medical Qualifiers: Diabetes mellitus [facility] insulin use: without [facility] use Qualified Code(s): E11.65 - Type 2 diabetes mellitus with hyperglycemia Plan: Decrease the amount of carbohydrate intake, pasta, bread, rice and potatoes are all sugar and that is aside from all the sweet stuff, remember that fruits are good but they are Sweet also. Patient is on metformin but because of uncontrolled diabetes was started on Jardiance and patient has not started yet. (4) Hypertension: Code(s): I10 - Essential (primary) hypertension Category: Medical Qualifiers: Hypertension type: essential hypertension Qualified Code(s): I10 - Essential (primary) hypertension Plan: Continue with blood pressure medication. Decrease salt intake and exercise on amlodipine 10 mg once a day and hydrochlorothiazide and lisinopril (5) Hypercholesterolemia: Code(s): E78.00 - Pure hypercholesterolemia, unspecified Category: Medical Plan: Avoid fried foods, chicken skin, eggs, butter margarine, pastries and meat. Be it pork or beef they have a lot of cholesterol LDL goal of less than 100 and triglyceride of less than 150 on atorvastatin 40 mg once a day (6) Obesity (BMI 30-39.9): Code(s): E66.9 - Obesity, unspecified Category: Medical Plan: Diet and exercise (7) GERD (gastroesophageal reflux disease): Code(s): K21.9 - Gastro-esophageal reflux disease without esophagitis Category: Medical Qualifiers: Esophagitis presence: without esophagitis Qualified Code(s): K21.9 - Gastro-esophageal reflux disease without esophagitis Plan: Avoid the foods that causes that usually spicy foods, tomato products, juices, coffee, soda and foods that your sensitive to. After eating do not lie down, allow 3-4 hours before in lie down. And keep the head of bed above 30 degrees to avoid the acid from going up. Plan History of Present Illness The patient is a 59-year-old male presenting for a physical exam and management of chronic conditions. The patient has a history of diabetes mellitus, with a recent hemoglobin A1c of 7.5, indicating poor glycemic control. He is currently prescribed metformin 500 mg twice daily and Jardiance 10 mg once daily, although he has not been adherent to the Jardiance regimen. His blood glucose level was recorded at 142 mg/dL, above the normal fasting range. The patient has hypercholesterolemia, with an LDL cholesterol level of 107 mg/dL, which is above the target of less than 100 mg/dL. He is on atorvastatin 40 mg daily, and there is a plan to increase the dosage to achieve better control. The patient reports a history of gastroesophageal reflux disease (GERD) and is on medication for management. Hypertension is managed with amlodipine 10 mg, hydrochlorothiazide, and lisinopril. Blood pressure readings have been elevated, but no changes to the medication regimen are planned at this time. The patient has benign prostatic hyperplasia (BPH) with an elevated PSA level of 4.77. He has not yet seen a urologist for further evaluation and management. There is a history of cholelithiasis and nephrolithiasis, with no recent episodes reported. Aortic stenosis was identified on an echocardiogram performed in December 2023, and the condition is being monitored. The patient has proteinuria, which requires further evaluation. Vitamin D deficiency has been noted, and supplementation is planned. Preventative care includes a colon cancer screening with a stool test conducted in October 2022. Health Maintenance - Colon cancer screening with stool test conducted in October 2022 - Vitamin D supplementation planned due to deficiency - Monitoring of aortic stenosis identified in December 2023 Social History - Alcohol use: Consumes wine cooler on weekends, two days per week - Smoking: Denies tobacco use - Exercise: Reports going to the gym, but not regularly - Diet: Consumes chicken, salad, tomatoes, and avoids fried foods - Family history: Father had bladder cancer, mother had breast cancer, uncle had heart disease Review of Systems - General: Denies fever, weight loss, or fatigue - Cardiovascular: Denies chest pain or palpitations - Respiratory: Denies dyspnea or cough - Gastrointestinal: Denies nausea, vomiting, diarrhea, or constipation - Genitourinary: Reports nocturia, denies dysuria or hematuria - Neurological: Denies dizziness or headaches Physical Exam General: Cooperative, healthy appearing, comfortable, no acute distress and well developed Orientation: Patient oriented x3 Limitations: No limitations Head: Normal to inspection Ears: Hearing grossly normal bilaterally, no blockage Nose: Normal external nose present Face and sinus: Normal facial exam Eyes: Appearance normal, both eyes and all related structures Neck: Normal visual inspection and Yes full ROM Respiratory: Normal respiratory effort and able to speak in complete sentences. Clear to auscultation bilaterally Cardiovascular: Regular rate and rhythm. Normal S1 and S2, known murmur with a valve that is a little tight GI: Normal to inspection. Soft to palpation and nontender Skin: No rashes or lesions noted Neuro: Patient oriented x3 Extremities: Normal to inspection, no pain or lumps noted Results - Labs: Hemoglobin A1c 7.5, blood glucose 142 mg/dL, LDL cholesterol 107 mg/dL, PSA 4.77, vitamin D low - Tests: Echocardiogram showed aortic stenosis Plan Patient was informed and verbally consented to the use of an ambient scribe for clinic note documentation during this visit. 1. Diabetes Mellitus The patient is advised to adhere to the prescribed regimen of metformin 500 mg twice daily and Jardiance 10 mg once daily to improve glycemic control. Follow- up blood work is scheduled in three months to assess the effectiveness of the current treatment plan. 2. Hypercholesterolemia The patient's atorvastatin dosage is to be increased to achieve an LDL cholesterol level below 100 mg/dL. Dietary modifications and regular exercise are recommended to support cholesterol management. 3. Hypertension Current antihypertensive therapy includes amlodipine, hydrochlorothiazide, and lisinopril, with no changes planned at this time. The patient is advised to monitor blood pressure regularly and maintain lifestyle modifications. 4. Benign Prostatic Hyperplasia (Bph) The patient is advised to schedule a consultation with a urologist for further evaluation of elevated PSA levels and management of BPH. 5. Vitamin D Deficiency Vitamin D supplementation is prescribed to address the deficiency. 6. Aortic Stenosis The patient is advised to continue monitoring the condition with regular follow- ups as needed. Discussion Notes During the visit, I discussed the importance of medication adherence, particularly for diabetes management with metformin and Jardiance, to improve glycemic control. We also reviewed the need for increasing atorvastatin dosage to better manage hypercholesterolemia and emphasized lifestyle modifications such as diet and exercise. I advised the patient to follow up with a urologist for elevated PSA levels and to continue monitoring aortic stenosis. Patient Instructions - Take metformin 500 mg twice daily and Jardiance 10 mg once daily as prescribed. - Schedule follow-up blood work in three months. - Increase atorvastatin dosage as directed to manage cholesterol levels. - Maintain a healthy diet and regular exercise routine. - Schedule an appointment with a urologist for further evaluation of PSA levels. - Continue monitoring aortic stenosis with regular follow-ups. - Begin vitamin D supplementation as prescribed. Orders: Orders Comprehensive Met. Panel 3 Months E78.00 - Pure hypercholesterolemia, unspecified Ferritin 3 Months E78.00 - Pure hypercholesterolemia, unspecified Complete Blood Count Auto Diff 3 Months E78.00 - Pure hypercholesterolemia, uns pecified IRON PROFILE 3 Months E78.00 - Pure hypercholesterolemia, unspecified Reticulocyte Count 3 Months E78.00 - Pure hypercholesterolemia, unspecified Lipid Panel 3 Months E78.00 - Pure hypercholesterolemia, unspecified Hemoglobin A1c 3 Months E78.00 - Pure hypercholesterolemia, unspecified Vitamin B12 and Folate 3 Months E78.00 - Pure hypercholesterolemia, unspecified Referrals Urology Referral R97.20 - Elevated prostate specific antigen [PSA] Medications: New cholecalciferol (vitamin D3) 50 mcg PO DAILY 90 caps 3RF 90 days E55.9 - Vitamin D deficiency, unspecified, E78.00 - Pure hypercholesterolemia, unspecified Changed From atorvastatin 40 mg PO DAILY 90 tabs 2RF E78.00 - Pure hypercholesterolemia, unspecified To atorvastatin 80 mg PO DAILY 60 tabs 2RF E78.00 - Pure hypercholesterolemia, unspecified
[2025-01-21 16:16] VITALS: BP 148/80; PULSE 92; TEMP 36.3; O2SAT 96; BMI 38.0
--- OUTSIDE RECORDS SUMMARY | 2025-01-21 17:15 | XMS_ITS | Clinical Summary ---
Author Organization [facility], Address [address] [place] [address] [place] [address] Phone Care Team Providers Care Assembly Line Leader Name Role Phone Nicki Haddad MD Primary Care Provider [phone] Allergies No known active allergies Medications amLODIPine [...] patient's age to complete this topic Insurance [facility] Care Teams Assembly Line Leader Relationship Specialty Start Date End Date Nicki Haddad MD [facility] [id number] [place], [place] PCP - General Internal Medicine 09/21/21
--- OUTSIDE RECORDS SUMMARY | 2025-01-21 17:15 | XMS_ITS | Patient Health Record ---
Author Organization [facility] Address [address] [place] [address] Care Team Providers Care Transport Nurse Name Role Phone Po Nicki STEWART Primary Care Provider Pedro Mclain [phone] Allergies Allergen (clinical drug ingredient) Drug/Non Drug Allergy documented on EMR Reaction Allergy Type Onset Date Status codeine Codeine N/V Drug Allergy Active Reason For Referral No Information Medications Medication SIG (Take, Route, Frequency, Duration) Notes Start Date End Date Status Finasteride 5 MG Oral; Duration: 30 Active Aspirin Low Dose 81 MG TAKE 1 TABLET BY MOUTH DAILY Oral; Duration: 90 Active Tamsulosin HCl Activ e Vitamin B12 100 MCG as directed Orally O nce a day Active Lisinopril 40 MG TAKE 1 TABLET BY BRYSON TH DAILY Diagnosis Unavailable Oral; Duration: 60 Active amLODIPine Besylate 10 MG Oral; Duration: 30 Active Atorvastatin Calcium 40 MG Oral; Duration: 60 Active Problems Problem Type SNOMED Code ICD Code Onset Dates Problem Status W/U Status Risk Notes Problem Screening for malignant neoplasm of colon (714124266) Encounter for screening for malignant neoplasm of colon (Z12.11) Active confirmed Problem Pre-procedure evaluation check (853869071) Encounter for other preprocedural examination (Z01.818) Active confirmed Problem Long-term current use of antiplatelet drug ([id number] ) salvage determiner (current) use of aspirin (Z79.82) Active confirmed Plan Of Treatment Future Test Test Name Order Date COLONOSCOPY 08/31/2021 Insurance Providers Payer Name Payer Address Payer Phone Subscriber Number Group Number Insured Name Patient Relationship to Insured Coverage Start Date Coverage End Date BLUE [employer] BLUE [facility] [address] [place] [address] [id number] LESLYE GONZALEZ Self - patient is the [...]
== END 2025-01-21 16:53 | disposition home or self-care (01) ==
LOC: HO.HMCH 16:14
PROVIDERS: PCP Internal Medicine; Visit Provider Internal Medicine
DX: Z00.00 Encounter for general adult medical examination without abnormal findings (principal); E11.65 Type 2 diabetes mellitus with hyperglycemia; E66.9 Obesity, unspecified; Z68.38 Body mass index [BMI] 38.0-38.9, adult; R35.0 Frequency of micturition; N40.1 Benign prostatic hyperplasia with lower urinary tract symptoms; I10 Essential (primary) hypertension; E78.00 Pure hypercholesterolemia, unspecified; K21.9 Gastro-esophageal reflux disease without esophagitis